=== PATIENT | male | born 1990 | race American Indian/Alaskan Native ===

== ENCOUNTER 2017-09-11 19:14 | Emergency (ER) | payer BC ==
[2017-09-11 20:25] LABS: Basophils # (Auto) 0.1 K/mm3 (0.0-0.1); Basophils % (Auto) 1.1 % (0.0-1.8); Eosinophils # (Auto) 0.3 K/mm3 (0.0-0.4); Eosinophils % (Auto) 4.7 % (0.0-4.3); Hematocrit 42.7 % (35.5-45.6); Lymphocytes # (Auto) 1.1 K/mm3 (1.2-5.4); Lymphocytes % (Auto) 19.2 % (13.4-35.0); Mean Corpuscular HGB Conc 33 % (32-34); Mean Corpuscular Hemoglobin 29 pg (28-32); Mean Corpuscular Volume 89 fl (84-94); Monocytes # (Auto) 0.5 K/mm3 (0.0-0.8); Monocytes % (Auto) 8.6 % (0.0-7.3); Platelet Count 259 K/mm3 (140-440); Red Blood Count 4.82 M/mm3 (3.65-5.03); Red Cell Distribution Width 13.2 % (13.2-15.2)
[2017-09-11 20:51] LABS: Alanine Aminotransferase 27 units/L (7-56); Albumin 4.2 g/dL (3.9-5); BUN/Creatinine Ratio 12; Blood Urea Nitrogen 11 mg/dL (9-20); Calcium 9.1 mg/dL (8.4-10.2); Hemolysis Index 3
--- NOTE | 2017-09-11 21:21 | XRay Report ---
FINAL REPORT EXAM: XR CHEST ROUTINE 2V HISTORY: Shortness of breath TECHNIQUE: Two view chest PA and lateral PRIORS: None. FINDINGS: Cardiac and mediastinal contours are unremarkable. No focal pulmonary infiltrate is identified. No pleural fluid collection seen. Pulmonary vasculature is unremarkable. IMPRESSION: Negative two-view chest
[2017-09-11 21:23] LABS: Bacteria,Urine 1+ /HPF (Negative); Bilirubin,Urine NEG (Negative); Blood,Urine NEG (Negative); Color,Urine Yellow (Yellow); Mucus,Urine FEW /HPF; Protein,Urine <15 mg/dL mg/dL (Negative); Urobilinogen,Urine < 2.0 mg/dL (<2.0)
[2017-09-11] MEDS ORDERED: ZOFRAN IV ONE (23:39)
[2017-09-11] MEDS ORDERED: TORADOL IV ONE (23:39)
[2017-09-11] MEDS ORDERED: NACL 0.9% 1000 ML 1,000 ML IV ONE (23:39)
--- NOTE | 2017-09-12 01:21 | Emergency Department Report ---
ED General Adult HPI - General Chief complaint: Abdominal Pain Stated complaint: CHEST PAIN,VOMITING,STOMACH PAIN Time Seen by Provider: 09/11/17 23:28 Source: patient Mode of arrival: Ambulatory Limitations: No Limitations - History of Present Illness Initial comments: Mr. Avina is a healthy 27-year-old male who presents with 4 days of generalized malaise, body aches joint pain. He feels fatigued. Feels dehydrated. He has sharp achy central chest pain. The chest pain is better when he sits up and leans forward. Worsens when he lays flat. Subjective fever. Positive chills. Gradual onset of symptoms. Ibuprofen provided only mild relief. No radiation of chest pain. Nonproductive cough. Patient does not smoke tobacco. He does not use recreational drugs. However he does drink alcohol everyday. His significant other's concern about the amount of alcohol that he ingests daily. Severity scale (0 -10): 7 - Related Data Home Medications Medication Instructions Recorded Confirmed Last Taken Ibuprofen [Motrin] 600 mg PO BID PRN 04/21/13 09/16/13 07/08/13 Previous Rx's Medication Instructions Recorded Last Taken Type ALBUTEROL Inhaler [ProAir HFA 1 puff IH Q4-6H PRN #1 inha 04/21/13 09/16/13 Rx Inhaler] ALBUTEROL NEB's [Proventil 0.083% 2.5 mg IH Q4H PRN #25 neb 09/16/13 Unknown Rx NEBS] Albuterol Sulfate [Ventolin HFA] 2 puff IH Q4H PRN #1 hfa.aer.ad 09/16/13 Unknown Rx predniSONE [Deltasone] 20 mg PO TID #15 tab 09/16/13 Unknown Rx Allergies Allergy/AdvReac Type Severity Reaction Status Date / Time coconut Allergy Anaphylaxis Verified 09/11/17 19:34 pollen Allergy Swelling Uncoded 09/11/17 19:34 ED Review of Systems ROS: Stated complaint: CHEST PAIN,VOMITING,STOMACH PAIN Other details as noted in HPI Comment: All other systems reviewed and negative Constitutional: fever, malaise Respiratory: cough Cardiovascular: chest pain ED Past Medical Hx - Past Medical History Previous Medical History?: Yes Hx Arthritis: Yes Hx Asthma: Yes - Surgical History Past Surgical History?: No - Social History Smoking Status: Never Smoker Substance Use Type: Alcohol - Medications Home Medications: Home Medications Medication Instructions Recorded Confirmed Last Taken Type ALBUTEROL Inhaler [ProAir HFA 1 puff IH Q4-6H PRN #1 inha 04/21/13 09/16/1305/20 Rx Inhaler] Ibuprofen [Motrin] 600 mg PO BID PRN 04/21/13 09/16/13 07/08/13 History ALBUTEROL NEB's [Proventil 0.083% 2.5 mg IH Q4H PRN #25 neb 09/16/13 Unknown Rx NEBS] Albuterol Sulfate [Ventolin HFA] 2 puff IH Q4H PRN #1 hfa.aer.ad 09/16/13 Unknown Rx predniSONE [Deltasone] 20 mg PO TID #15 tab 09/16/13 Unknown Rx ED Physical Exam - General Limitations: No Limitations General appearance: alert, in no apparent distress - Head Head exam: Present: atraumatic, normocephalic - Eye Eye exam: Present: normal appearance - ENT ENT exam: Present: mucous membranes moist - Neck Neck exam: Present: normal inspection - Respiratory Respiratory exam: Present: normal lung sounds bilaterally. Absent: respiratory distress, wheezes, rales, rhonchi - Cardiovascular Cardiovascular Exam: Present: regular rate, normal rhythm, normal heart sounds. Absent: systolic murmur, diastolic murmur, rubs, gallop - GI/Abdominal GI/Abdominal exam: Present: soft. Absent: distended, tenderness, guarding, rebound - Rectal Rectal exam: Present: deferred - Extremities Exam Extremities exam: Present: normal inspection - Back Exam Back exam: Present: normal inspection - Neurological Exam Neurological exam: Present: alert, oriented X3 - Psychiatric Psychiatric exam: Present: normal affect, normal mood - Skin Skin exam: Present: warm, dry, intact, normal color. Absent: rash ED Course Vital Signs 09/11/17 09/11/17 09/12/17 19:14 19:34 00:14 Temperature 97.5 F L 97.5 F L 97.8 F Pulse Rate 89 86 63 Respiratory 18 20 Rate Blood Pressure 132/97 132/97 Blood Pressure 112/73 [Left] O2 Sat by Pulse 94 96 97 Oximetry 09/12/17 09/12/17 00:17 00:19 Temperature Pulse Rate Respiratory 20 20 Rate Blood Pressure Blood Pressure [Left] O2 Sat by Pulse 97 Oximetry ED Medical Decision Making - Lab Data Result diagrams: 09/11/17 20:16 09/11/17 20:16 Laboratory Results - last 24 hr 09/11/17 09/11/17 09/11/17 20:16 20:16 20:55 WBC 5.9 RBC 4.82 Hgb 14.0 Hct 42.7 MCV 89 MCH 29 MCHC 33 RDW 13.2 Plt Count 259 Lymph % (Auto) 19.2 [place] % (Auto) 8.6 H Eos % (Auto) 4.7 H Baso % (Auto) 1.1 Lymph # 1.1 L [place] # 0.5 Eos # 0.3 Baso # 0.1 Seg Neutrophils % 66.4 Seg Neutrophils # 3.9 Sodium 142 Potassium 4.3 Chloride 99.3 Carbon Dioxide 25 Anion Gap 22 BUN 11 Creatinine 0.9 Estimated GFR > 60 BUN/Creatinine Ratio 12 Glucose 85 Calcium 9.1 Total Bilirubin 0.20 AST 41 H ALT 27 Alkaline Phosphatase 67 Troponin T Total Protein 7.7 Albumin 4.2 Albumin/Globulin Ratio 1.2 Urine Color Yellow Urine Turbidity Clear Urine pH 5.0 Ur Specific [place] 1.023 Urine Protein <15 mg/dl Urine Glucose (UA) Neg Urine Ketones 20 Urine Blood Neg Urine Nitrite Neg Urine Bilirubin Neg Urine Urobilinogen < 2.0 Ur Leukocyte Esterase Neg Urine WBC (Auto) 1.0 Urine RBC (Auto) 2.0 U Epithel Cells (Auto) < 1.0 Urine Bacteria (Auto) 1+ Urine Mucus Few 09/11/17 23:43 WBC RBC Hgb Hct MCV MCH MCHC RDW Plt Count Lymph % (Auto) [place] % (Auto) Eos % (Auto) Baso % (Auto) Lymph # [place] # Eos # Baso # Seg Neutrophils % Seg Neutrophils # Sodium Potassium Chloride Carbon Dioxide Anion Gap BUN Creatinine Estimated GFR BUN/Creatinine Ratio Glucose Calcium Total Bilirubin AST ALT Alkaline Phosphatase Troponin T < 0.010 Total Protein Albumin Albumin/Globulin Ratio Urine Color Urine Turbidity Urine pH Ur Specific [place] Urine Protein Urine Glucose (UA) Urine Ketones Urine Blood Urine Nitrite Urine Bilirubin Urine Urobilinogen Ur Leukocyte Esterase Urine WBC (Auto) Urine RBC (Auto) U Epithel Cells (Auto) Urine Bacteria (Auto) Urine Mucus Vital Signs - 24 hr 09/11/17 09/11/17 09/12/17 19:14 19:34 00:14 Temperature 97.5 F L 97.5 F L 97.8 F Pulse Rate 89 86 63 Respiratory 18 20 Rate Blood Pressure 132/97 132/97 Blood Pressure 112/73 [Left] O2 Sat by Pulse 94 96 97 Oximetry 09/12/17 09/12/17 00:17 00:19 Temperature Pulse Rate Respiratory 20 20 Rate Blood Pressure Blood Pressure [Left] O2 Sat by Pulse 97 Oximetry - EKG Data 09/12/17 01:19 First EKG obtained at 1943 Normal sinus rhythm rate of 70 normal axis normal intervals minimal ST elevation in the inferior lateral leads without signs of ischemia Second EKG obtained at 1953 No changes from the previous EKG Rate 70 normal sinus rhythm normal axis normal intervals minimally elevated ST elevation in the inferior lateral leads - Medical Decision Making Mr. Avina presents with viral syndrome and signs and symptoms of pericarditis. I prescribed ibuprofen. Discharged home in stable condition. I strongly encouraged follow-up with outside clinic. Also recommended alcohol cessation. Critical care attestation.: If time is entered above; I have spent that time in minutes in the direct care of this critically ill patient, excluding procedure time. ED Disposition Clinical Impression: Acute pericarditis, Viral syndrome Disposition: -01 TO HOME OR SELFCARE Is pt being admited?: No Does the pt Need Aspirin: No Condition: Stable Instructions: Acute Pericarditis (ED) Referrals: [facility] [Outside] - 7-10 days Time of Disposition: 01:23
[2017-09-12 01:46] VITALS: BP 118/70
== END 2017-09-12 01:46 | disposition home or self-care (01) ==
LOC: ED 19:14
DX: I30.9 Acute pericarditis, unspecified (principal); B34.9 Viral infection, unspecified; M19.90 Unspecified osteoarthritis, unspecified site; J45.909 Unspecified asthma, uncomplicated; Z91.018 Allergy to other foods
CPT/HCPCS: 36415; 71046; 80053; 81001; 84484; 85025; 93005; 93010; 96361; 96374; 96375; 99284; J1885; J2405; J7030

== ENCOUNTER 2018-01-23 18:56 | Emergency (ER) | payer BC ==
[2018-01-23] MEDS ORDERED: ASPIRIN PO ONE (19:22)
[2018-01-23 20:05] LABS: Basophils % (Auto) 0.4 % (0.0-1.8); Eosinophils # (Auto) 0.1 K/mm3 (0.0-0.4); Eosinophils % (Auto) 1.7 % (0.0-4.3); Hematocrit 43.3 % (35.5-45.6); Hemoglobin 14.4 gm/dl (11.8-15.2); Lymphocytes # (Auto) 1.3 K/mm3 (1.2-5.4); Mean Corpuscular HGB Conc 33 % (32-34); Mean Corpuscular Hemoglobin 30 pg (28-32); Mean Corpuscular Volume 89 fl (84-94); Monocytes # (Auto) 0.5 K/mm3 (0.0-0.8); Monocytes % (Auto) 7.5 % (0.0-7.3); Platelet Count 303 K/mm3 (140-440); Red Blood Count 4.88 M/mm3 (3.65-5.03); Red Cell Distribution Width 13.1 % (13.2-15.2)
[2018-01-23 20:10] LABS: BUN/Creatinine Ratio 8; Blood Urea Nitrogen 10 mg/dL (9-20); Calcium 10.1 mg/dL (8.4-10.2); Hemolysis Index 8
[2018-01-23 21:08] LABS: Albumin 4.8 g/dL (3.9-5); Bilirubin,Direct 0.2 mg/dL (0-0.2)
[2018-01-23] MEDS ORDERED: VITAMIN B-1 100 MG, FOLVITE 1 MG, INFUVITE 10 ML in NACL 0.9% 1000 ML 1,000 ML IV ONE (21:17)
[2018-01-23] MEDS ORDERED: ATIVAN IV ONE (21:17)
[2018-01-23] MEDS ORDERED: ZOFRAN IV ONE (21:17)
--- NOTE | 2018-01-23 21:54 | Emergency Department Report ---
ED Chest Pain HPI - General Chief Complaint: Chest Pain Stated Complaint: CHEST PAIN/SWEATING/SHAKING Time Seen by Provider: 01/23/18 20:52 Source: patient Mode of arrival: Ambulatory Limitations: No Limitations - History of Present Illness Initial Comments: 27-year-old male with a past medical history of asthma and alcohol abuse presents to the hospital complaining of chest pain, fluttering in his chest, shortness of breath (feeling like he cant get enough air), uncontrollable shaking, and sweats that started today. Patient drinks a significant amount of alcohol daily and admits to tremors when he does not drink. His last drink was yesterday. Family member states the patient became so drunk that he passed out yesterday. Patient complains of intermittent chest tightness and shortness of breath today. He has not recently used his albuterol inhaler. Earlier today he has tremors and shakes. Positive nausea without vomiting and 2 episodes of loose stool reported. thinks that patient's eyes are more yellow today. They report that he had similar symptoms when he was here in September when he was diagnosed with pericarditis by treating ER physician. - Related Data Home Medications Medication Instructions Recorded Confirmed Last Taken Ibuprofen [Motrin] 600 mg PO BID PRN 04/21/13 09/16/13 07/08/13 Previous Rx's Medication Instructions Recorded Last Taken Type ALBUTEROL NEB's [Proventil 0.083% 2.5 mg IH Q4H PRN #25 neb 09/16/13 Unknown Rx NEBS] Albuterol Sulfate [Ventolin HFA] 2 puff IH Q4H PRN #1 hfa.aer.ad 09/16/13 Unknown Rx predniSONE [Deltasone] 20 mg PO TID #15 tab 09/16/13 Unknown Rx Ibuprofen 800 mg PO QID 28 Days #7 tablet 09/12/17 Unknown Rx ALBUTEROL Inhaler [ProAir HFA 1 puff IH Q4-6H PRN #1 inha 01/24/18 Unknown Rx Inhaler] chlordiazePOXIDE [Librium] 25 mg PO DAILY #20 capsule 01/24/18 Unknown Rx Allergies Allergy/AdvReac Type Severity Reaction Status Date / Time coconut Allergy Anaphylaxis Verified 09/11/17 19:34 pollen Allergy Swelling Uncoded 09/11/17 19:34 Heart Score - HEART Score History: Slightly suspicious EKG: Normal Age: < 45 Risk factors: No known risk factors Troponin: < normal limit HEART Score: 0 ED Review of Systems ROS: Stated complaint: CHEST PAIN/SWEATING/SHAKING Other details as noted in HPI Comment: All other systems reviewed and negative ED Past Medical Hx - Past Medical History Hx Arthritis: Yes Hx Psychiatric Treatment: Yes (alcohol abuse) Hx Asthma: Yes - Social History Smoking Status: Current Every Day Smoker Substance Use Type: Alcohol - Medications Home Medications: Home Medications Medication Instructions Recorded Confirmed Last Taken Type Ibuprofen [Motrin] 600 mg PO BID PRN 04/21/13 09/16/13 07/08/13 History ALBUTEROL NEB's [Proventil 0.083% 2.5 mg IH Q4H PRN #25 neb 09/16/13 Unknown Rx NEBS] Albuterol Sulfate [Ventolin HFA] 2 puff IH Q4H PRN #1 hfa.aer.ad 09/16/13 Unknown Rx predniSONE [Deltasone] 20 mg PO TID #15 tab 09/16/13 Unknown Rx Ibuprofen 800 mg PO QID 28 Days #7 tablet 09/12/17 Unknown Rx ALBUTEROL Inhaler [ProAir HFA 1 puff IH Q4-6H PRN #1 inha 01/24/18 Unknown Rx Inhaler] chlordiazePOXIDE [Librium] 25 mg PO DAILY #20 capsule 01/24/18 Unknown Rx ED Physical Exam - General Limitations: No Limitations - Other Other exam information: General: No limitations, patient is alert in no acute distress Head exam: Atraumatic, normocephalic Eyes exam: Normal appearance, pupils equal reactive to light, extraocular movements intact ENT: Moist mucous membrane, normal oropharynx Neck exam: Normal inspection, full range of motion, no meningismus nontender Respiratory exam: Clear to auscultation bilateral, no wheezes, rales, crackles Cardiovascular: Normal rate and rhythm, normal heart sounds Abdomen: Soft, nondistended, and nontender, with normal bowel sounds, no rebound, or guarding Extremity: Full range of motion normal inspection no deformity, no calf tenderness, no edema Back: Normal Inspection, full range of motion, no tenderness Neurologic: Alert, oriented x3, cranial nerves intact, no motor or sensory deficit, no tremor currently Psychiatric: normal affect, normal mood Skin: Warm, dry, intact ED Course Vital Signs 08/19/18 08/19/18 08/19/18 19:08 19:17 21:15 Temperature 98.3 F 98.3 F Pulse Rate 73 66 59 L Respiratory 18 18 11 L Rate Blood Pressure 111/77 111/77 120/73 Blood Pressure [Left] O2 Sat by Pulse 100 100 95 Oximetry 01/23/18 23:00 Temperature Pulse Rate 62 Respiratory 17 Rate Blood Pressure Blood Pressure 116/69 [Left] O2 Sat by Pulse 97 Oximetry - Reevaluation(s) Reevaluation #1: 01/24/18 00:26 pt reports feeling better with ed treatment CONCEPCION score - Concepcion Score Age > 65: (0) No Aspirin use within the Past 7 Days: (0) No 3 or more CAD Risk Factors: (0) No 2 or more Angina events in past 24 hrs: (0) No Known CAD with more than 50% Stenosis: (0) No Elevated Cardiac Markers: (0) No ST Deviation Greater than 0.5mm: (0) No CONCEPCION Score: 0 ED Medical Decision Making - Lab Data Result diagrams: 01/23/18 19:40 01/23/18 19:40 Lab Results 01/23/18 01/23/18 01/23/18 Range/Units 19:40 19:40 19:40 WBC 6.4 (4.5-11.0) K/mm3 RBC 4.88 (3.65-5.03) M/mm3 Hgb 14.4 (11.8-15.2) gm/dl Hct 43.3 (35.5-45.6) % MCV 89 (84-94) fl MCH 30 (28-32) pg MCHC 33 (32-34) % RDW 13.1 L (13.2-15.2) % Plt Count 303 (140-440) K/mm3 Lymph % (Auto) 20.0 (13.4-35.0) % [place] % (Auto) 7.5 H (0.0-7.3) % Eos % (Auto) 1.7 (0.0-4.3) % Baso % (Auto) 0.4 (0.0-1.8) % Lymph # 1.3 (1.2-5.4) K/mm3 [place] # 0.5 (0.0-0.8) K/mm3 Eos # 0.1 (0.0-0.4) K/mm3 Baso # 0.0 (0.0-0.1) K/mm3 Seg Neutrophils % 70.4 H (40.0-70.0) % Seg Neutrophils # 4.5 (1.8-7.7) K/mm3 Sodium 140 (137-145) mmol/L Potassium 4.2 (3.6-5.0) mmol/L Chloride 98.8 (98-107) mmol/L Carbon Dioxide 25 (22-30) mmol/L Anion Gap 20 mmol/L BUN 10 (9-20) mg/dL Creatinine 1.2 (0.8-1.5) mg/dL Estimated GFR > 60 ml/min BUN/Creatinine Ratio 8 % Glucose 75 (75-100) mg/dL Calcium 10.1 (8.4-10.2) mg/dL Magnesium 1.70 (1.7-2.3) mg/dL Total Bilirubin 0.80 (0.1-1.2) mg/dL Direct Bilirubin 0.2 (0-0.2) mg/dL Indirect Bilirubin 0.6 mg/dL AST 50 H (5-40) units/L ALT 35 (7-56) units/L Alkaline Phosphatase 84 (35-129) units/L Troponin T 0.012 (0.00-0.029) ng/mL Total Protein 8.4 H (6.3-8.2) g/dL Albumin 4.8 (3.9-5) g/dL Albumin/Globulin Ratio 1.3 % Urine Opiates Screen Urine Methadone Screen Ur Barbiturates Screen Ur Phencyclidine Scrn Ur Amphetamines Screen U Benzodiazepines Scrn Urine Cocaine Screen U Marijuana (THC) Screen 01/23/18 01/23/18 Range/Units 22:49 23:05 WBC (4.5-11.0) K/mm3 RBC (3.65-5.03) M/mm3 Hgb (11.8-15.2) gm/dl Hct (35.5-45.6) % MCV (84-94) fl MCH (28-32) pg MCHC (32-34) % RDW (13.2-15.2) % Plt Count (140-440) K/mm3 Lymph % (Auto) (13.4-35.0) % [place] % (Auto) (0.0-7.3) % Eos % (Auto) (0.0-4.3) % Baso % (Auto) (0.0-1.8) % Lymph # (1.2-5.4) K/mm3 [place] # (0.0-0.8) K/mm3 Eos # (0.0-0.4) K/mm3 Baso # (0.0-0.1) K/mm3 Seg Neutrophils % (40.0-70.0) % Seg Neutrophils # (1.8-7.7) K/mm3 Sodium (137-145) mmol/L Potassium (3.6-5.0) mmol/L Chloride (98-107) mmol/L Carbon Dioxide (22-30) mmol/L Anion Gap mmol/L BUN (9-20) mg/dL Creatinine (0.8-1.5) mg/dL Estimated GFR ml/min BUN/Creatinine Ratio % Glucose (75-100) mg/dL Calcium (8.4-10.2) mg/dL Magnesium (1.7-2.3) mg/dL Total Bilirubin (0.1-1.2) mg/dL Direct Bilirubin (0-0.2) mg/dL Indirect Bilirubin mg/dL AST (5-40) units/L ALT (7-56) units/L Alkaline Phosphatase (35-129) units/L Troponin T < 0.010 (0.00-0.029) ng/mL Total Protein (6.3-8.2) g/dL Albumin (3.9-5) g/dL Albumin/Globulin Ratio % Urine Opiates Screen Presumptive negative Urine Methadone Screen Presumptive negative Ur Barbiturates Screen Presumptive negative Ur Phencyclidine Scrn Presumptive negative Ur Amphetamines Screen Presumptive negative U Benzodiazepines Scrn Presumptive negative Urine Cocaine Screen Presumptive negative U Marijuana (THC) Screen Presumptive negative - EKG Data -: EKG Interpreted by De EKG shows normal: sinus rhythm, axis (qrs 91), QRS complexes (qrsd 97), ST-T waves (early repol) Rate: normal - EKG Data When compared to previous EKG there are: no significant change (compared to ) - Radiology Data Radiology results: report reviewed FINAL REPORT PROCEDURE: XR CHEST ROUTINE 2V TECHNIQUE: PA and lateral chest radiographs were obtained. CPT 16382 HISTORY: cp, sob COMPARISON: 09/11/2017 FINDINGS: Heart: Normal. Mediastinum/Vessels: Normal. Lungs/Pleural space: Normal. Bony thorax: No acute osseous abnormality. Other: IMPRESSION: Normal examination. - Medical Decision Making Constellation of symptoms likely related to etoh withdrawal sx improved with ativan 1mg iv and 1 Liter bannana bag ekg unchanged cardiac enzymes neg x2 cxr normal d/c with meds and f/u - Differential Diagnosis alcohol withdrawal, asthma, pericarditis, pericardial effusion, chf Critical Care Time: No Critical care attestation.: If time is entered above; I have spent that time in minutes in the direct care of this critically ill patient, excluding procedure time. ED Disposition Clinical Impression: Alcohol dependence, Alcohol withdrawal Disposition: - TO HOME OR SELFCARE Is pt being admited?: No Does the pt Need Aspirin: No Condition: Stable Instructions: Abuse of Alcohol (ED), Alcohol Withdrawal (ED) Additional Instructions: You are physically dependent on alcohol and therefore you cannot quit cold turkey or you may develop alcohol withdrawal symptoms. Take the Librium jonnie as prescribed to help with alcohol withdrawal symptoms if you decide to stop drinking. You have been provided follow-up information for [facility]/ [facility] to help you further with alcohol withdrawal treatment Prescriptions: ALBUTEROL Inhaler [ProAir HFA Inhaler] 1 puff IH Q4-6H PRN #1 inha PRN Reason: Wheezing chlordiazePOXIDE [Librium] 25 mg PO DAILY #20 capsule Referrals: [facility] [Provider Group] - 3-[address] [facility] [Outside] - 3-5 Days (For help with alcohol abuse) Time of Disposition: 00:43
--- NOTE | 2018-01-23 23:23 | XRay Report ---
FINAL REPORT PROCEDURE: XR CHEST ROUTINE 2V TECHNIQUE: PA and lateral chest radiographs were obtained. CPT 09747 HISTORY: cp, sob COMPARISON: 09/11/2017 FINDINGS: Heart: Normal. Mediastinum/Vessels: Normal. Lungs/Pleural space: Normal. Bony thorax: No acute osseous abnormality. Other: IMPRESSION: Normal examination.
[2018-01-24 00:25] LABS: Amphetamine Screen,Urine PRESUMPTIVE NEGATIVE; Benzodiazepines Screen,Urine PRESUMPTIVE NEGATIVE; Cannabinoid Screen,Urine PRESUMPTIVE NEGATIVE; Cocaine Screen,Urine PRESUMPTIVE NEGATIVE; Methadone Screen,Urine PRESUMPTIVE NEGATIVE; Opiate Screen,Urine PRESUMPTIVE NEGATIVE
[2018-01-24 01:11] VITALS: BP 105/66
== END 2018-01-24 01:19 | disposition home or self-care (01) ==
LOC: ED 18:56
DX: F10.230 Alcohol dependence with withdrawal, uncomplicated (principal); Z91.018 Allergy to other foods; M19.90 Unspecified osteoarthritis, unspecified site; J45.909 Unspecified asthma, uncomplicated; F17.200 Nicotine dependence, unspecified, uncomplicated
CPT/HCPCS: 36415; 71046; 80048; 80074; 80307; 83735; 84484; 85025; 93005; 93010; 96365; 96375; 99284; J2060; J2405; J3411; J7030

== ENCOUNTER 2018-09-22 20:54 | Emergency (ER) | payer OTHER ==
--- NOTE | 2018-09-22 21:05 | Emergency Department Report ---
Blank Doc - Documentation Documentation: This is a 28-year-old male that presents with right arm lac s/p cut with glass. This initial assessment/diagnostic orders/clinical plan/treatment(s) is/are subject to change based on patient's health status, clinical progression and re- assessment by fellow clinical providers in the ED. Further treatment and workup at subsequent clinical providers discretion. Patient/guardians urged not to elope from the ED as their condition may be serious if not clinically assessed and managed. Initial orders include: 1- Patient sent to [facility] for further evaluation and treatment 2- xray to r/o foreign body
[2018-09-22] MEDS ORDERED: IBUPROFEN PO ONE ×2 (21:06→21:10)
[2018-09-22 21:07] VITALS: BP 121/78
--- NOTE | 2018-09-22 22:03 | XRay Report ---
PROCEDURE: XR FOREARM RT TECHNIQUE: AP and lateral view of the right forearm are obtained. HISTORY: laceration, foreign body COMPARISONS: None FINDINGS: There appears to be a laceration anterior aspect of the right forearm middle third. Subtle density is seen at the suspected laceration site measuring just under 2 mm. This could be related to the lacera tion. I cannot exclude a small foreign body. Radius and ulna appear intact. Cortical and trabecular p attern appear normal. IMPRESSION: Laceration suspected anterior aspect of the forearm and possible 2 mm foreign body. Please see above comments. No other abnormalities are seen.. This document is electronically signed by Waqar Burnett MD., September 22 2018 10:01:48 PM ET
[2018-09-23] MEDS ORDERED: NORCO 5/325 ONE
[2018-09-23] MEDS ORDERED: NORCO 5/325 PO ONE (00:03)
[2018-09-23] MEDS ORDERED: IBUPROFEN PO ONE ×2 (00:03)
[2018-09-23] MEDS ORDERED: BOOSTRIX IM ONE (03:17)
[2018-09-23] MEDS ORDERED: KEFLEX PO ONE (03:17)
--- NOTE | 2018-09-23 03:17 | Emergency Department Report ---
- General Chief Complaint: Wound/Laceration Stated Complaint: RIGHT ARM LACERATION Time Seen by Provider: 09/22/18 21:03 Source: patient Mode of arrival: Ambulatory Limitations: No Limitations - History of Present Illness Initial Comments: Pt is a 28 y/o aam who presens for right forearm laceration pt states he fell and his arm went through car window , bleeding was controlled on scene via direct pressure, there is no nerve muscle or tendon damage there is no numbness or tingling no deformity rom is intact Onset/Timin -: hour(s) Extremity Location: Right: Forearm Place: outdoors Patient Tetanus UTD: No Context: accidental, fall Associated Symptoms: pain - Related Data Home Medications Medication Instructions Recorded Confirmed Last Taken Ibuprofen [Motrin] 600 mg PO BID PRN 04/21/13 09/16/13 07/08/13 Previous Rx's Medication Instructions Recorded Last Taken Type ALBUTEROL NEB's [Proventil 0.083% 2.5 mg IH Q4H PRN #25 neb 09/16/13 Unknown Rx NEBS] Albuterol Sulfate [Ventolin HFA] 2 puff IH Q4H PRN #1 hfa.aer.ad 09/16/13 Unknown Rx predniSONE [Deltasone] 20 mg PO TID #15 tab 09/16/13 Unknown Rx Ibuprofen 800 mg PO QID 28 Days #7 tablet 09/12/17 Unknown Rx ALBUTEROL Inhaler (OR & NICU) 1 puff IH Q4-6H PRN #1 inha 01/24/18 Unknown Rx [ProAir HFA Inhaler] chlordiazePOXIDE [Librium] 25 mg PO DAILY #20 capsule 01/24/18 Unknown Rx Cephalexin [Keflex] 500 mg PO TID #30 capsule 09/23/18 Unknown Rx Neomycn/Bacitrc/Polymyx/Pramox 1 applicatio TP BID 14 Days #1 tube 09/23/18 Unknown Rx [Neosporin + Pain Relief Oint] traMADol [Ultram] 50 mg PO Q6HR PRN #12 tablet 09/23/18 Unknown Rx Allergies Allergy/AdvReac Type Severity Reaction Status Date / Time coconut Allergy Anaphylaxis Verified 09/11/17 19:34 pollen Allergy Swelling Uncoded 09/11/17 19:34 ED Review of Systems ROS: Stated complaint: RIGHT ARM LACERATION Other details as noted in HPI Constitutional: denies: chills, fever Eyes: denies: eye pain, eye discharge, vision change ENT: denies: ear pain, throat pain Respiratory: denies: cough, shortness of breath, wheezing Cardiovascular: denies: chest pain, palpitations Endocrine: no symptoms reported Gastrointestinal: denies: abdominal pain, nausea, diarrhea Genitourinary: denies: urgency, dysuria Musculoskeletal: myalgia. denies: back pain, joint swelling, arthralgia Skin: denies: rash, lesions Neurological: denies: headache, weakness, paresthesias Psychiatric: denies: anxiety, depression Hematological/Lymphatic: denies: easy bleeding, easy bruising ED Past Medical Hx - Past Medical History Hx Arthritis: Yes Hx Psychiatric Treatment: Yes (alcohol abuse) Hx Asthma: Yes - Surgical History Past Surgical History?: No - Social History Smoking Status: Current Every Day Smoker Substance Use Type: Alcohol - Medications Home Medications: Home Medications Medication Instructions Recorded Confirmed Last Taken Type Ibuprofen [Motrin] 600 mg PO BID PRN 04/21/13 09/16/13 07/08/13 History ALBUTEROL NEB's [Proventil 0.083% 2.5 mg IH Q4H PRN #25 neb 09/16/13 Unknown Rx NEBS] Albuterol Sulfate [Ventolin HFA] 2 puff IH Q4H PRN #1 hfa.aer.ad 09/16/13 Unknown Rx predniSONE [Deltasone] 20 mg PO TID #15 tab 09/16/13 Unknown Rx Ibuprofen 800 mg PO QID 28 Days #7 tablet 09/12/17 Unknown Rx ALBUTEROL Inhaler (OR & NICU) 1 puff IH Q4-6H PRN #1 inha 01/24/18 Unknown Rx [ProAir HFA Inhaler] chlordiazePOXIDE [Librium] 25 mg PO DAILY #20 capsule 01/24/18 Unknown Rx Cephalexin [Keflex] 500 mg PO TID #30 capsule 09/23/18 Unknown Rx Neomycn/Bacitrc/Polymyx/Pramox 1 applicatio TP BID 14 Days #1 tube 09/23/18 Unknown Rx [Neosporin + Pain Relief Oint] traMADol [Ultram] 50 mg PO Q6HR PRN #12 tablet 09/23/18 Unknown Rx ED Physical Exam - General Limitations: No Limitations General appearance: alert, in no apparent distress - Head Head exam: Present: atraumatic, normocephalic - Eye Eye exam: Present: normal appearance, PERRL, EOMI Pupils: Present: normal accommodation - ENT ENT exam: Present: mucous membranes moist - Neck Neck exam: Present: normal inspection, full ROM - Respiratory Respiratory exam: Present: normal lung sounds bilaterally. Absent: respiratory distress, wheezes - Cardiovascular Cardiovascular Exam: Present: regular rate, normal rhythm, normal heart sounds. Absent: systolic murmur, diastolic murmur, rubs, gallop - GI/Abdominal GI/Abdominal exam: Present: soft, normal bowel sounds. Absent: tenderness, bruit, hernia - Rectal Rectal exam: Present: deferred - Extremities Exam Extremities exam: Present: normal inspection, full ROM, tenderness (right anterior forearm ), normal capillary refill. Absent: pedal edema, joint swelling - Expanded Upper Extremity Exam Right Upper Arm exam: Present: full ROM, dislocation. Absent: tenderness Elbow exam: Present: full ROM, tenderness Forearm Wrist exam: Present: normal inspection, full ROM, tenderness, la ceration. Absent: swelling, abrasion, ecchymosis, deformity, crepidus, dislocation, erythema, tenderness over anatomical snuff box, pain with axial thumb loading Hand Wrist exam: Present: full ROM. Absent: tenderness, swelling Neuro motor exam: Present: wrist extension intact, thumb opposition intact, thumb IP flexion intact, thumb adduction intact, fingers 2-5 abduction intact Neurosensory exam: Present: 2-point discrimination, radial nerve intact, ulnar nerve intact, median nerve intact Vascular: Present: normal capillary refill, radial pulse, brachial pulse, ulnar pulse. Absent: pulse deficit radial art, pulse deficit ulnar art, pulse deficit brachial art - Back Exam Back exam: Present: normal inspection, full ROM. Absent: tenderness, rash noted - Neurological Exam Neurological exam: Present: alert, oriented X3, CN II-XII intact, normal gait, motor sensory deficit, reflexes normal - Psychiatric Psychiatric exam: Present: normal affect, normal mood - Skin Skin exam: Present: warm, dry, intact, normal color. Absent: rash ED Course Vital Signs 09/22/18 21:04 Temperature 98 F Pulse Rate 74 Respiratory 16 Rate Blood Pressure 121/78 O2 Sat by Pulse 97 Oximetry - Laceration /Wound Repair Right Anterior Arm Wound Location: upper extremity Wound Length (cm): 2 Wound's Depth, Shape: into muscle Wound Explored: small glass sliver removed intact no other foreign body remains Irrigated w/ Saline (ccs): 60 Betadine Prep?: Yes Anesthesia: 1% Lidocaine Volume Anesthetic (ccs): 3 Wound Debrided: minimal Wound Repaired With: sutures Suture Size/Type: 4:0, nylon Number of Sutures: 9 Layer Closure?: No Progress: right forearm laceration x 3 less than 1 cm each , forearm xray notes small foreign body, same noted with irrigation, wound cleaned with betadine solution , anesthesia with 1% lidocaine 3 cc , wound irrigated with 60 cc sterile saline , wound explored foreign body glass sliver removed intact. 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 ED Medical Decision Making - Radiology Data Radiology results: report reviewed, image reviewed Findings [facility] [address] [place] [address] XRay Report Signed Patient: CHRIS HICKMAN MR#: [id number] : 1990 Acct:[id number] Age/Sex: 28 / M ADM Date: 09/22/18 Loc: ED Attending Dr: Ordering Physician: LINA LAYTON NP Date of Service: 09/22/18 Procedure(s): XR forearm RT Accession Number(s): [id number] cc: LINA LAYTON NP Fluoro Time In Minutes: PROCEDURE: XR FOREARM RT TECHNIQUE: AP and lateral view of the right forearm are obtained. HISTORY: laceration, foreign body COMPARISONS: None FINDINGS: There appears to be a laceration anterior aspect of the right forearm middle third. Subtle density is seen at the suspected laceration site measuring just under 2 mm. This could be related to the laceration. I cannot exclude a small foreign body. Radius and ulna appear intact. Cortical and trabecular pattern appear normal. IMPRESSION: Laceration suspected anterior aspect of the forearm and possible 2 mm foreign body. Please see above comments. No other abnormalities are seen.. This document is electronically signed by Iris Burnett MD., September 22 2018 10:01:48 PM ET Transcribed By: DFN Dictated By: IRIS BURNETT MD Electronically Authenticated By: IRIS BURNETT MD Signed Date/Time: 09/22/182202 DD/ 46 TD/TT: 09/22/182146 Critical care attestation.: If time is entered above; I have spent that time in minutes in the direct care of this critically ill patient, excluding procedure time. ED Disposition Clinical Impression: Laceration of forearm, right Qualifiers: Encounter type: initial encounter Qualified Code(s): S51.811A - Laceration without foreign body of right forearm, initial encounter Disposition: TO HOME OR SELFCARE Is pt being admited?: No Does the pt Need Aspirin: No Condition: Stable Instructions: Laceration (ED), Suture Care (ED) Prescriptions: Cephalexin [Keflex] 500 mg PO TID #30 capsule Neomycn/Bacitrc/Polymyx/Pramox [Neosporin + Pain Relief Oint] 1 applicatio TP BID 14 Days #1 tube traMADol [Ultram] 50 mg PO Q6HR PRN #12 tablet PRN Reason: Pain Referrals: [facility] [Outside] - 3-5 Days Forms: Work/School Release Form(ED) Time of Disposition: 03:47
== END 2018-09-23 03:54 | disposition home or self-care (01) ==
LOC: ED 20:54
DX: S51.811A Laceration without foreign body of right forearm, initial encounter (principal); M19.90 Unspecified osteoarthritis, unspecified site; J45.909 Unspecified asthma, uncomplicated; F17.200 Nicotine dependence, unspecified, uncomplicated; W25.XXXA Contact with sharp glass, initial encounter; Y93.89 Activity, other specified; Y92.89 Other specified places as the place of occurrence of the external cause; Y99.8 Other external cause status
CPT/HCPCS: 90471; 90715

== ENCOUNTER 2019-04-14 07:36 | Emergency (ER) | payer OTHER ==
[2019-04-14 08:20] VITALS: BP 115/66
--- NOTE | 2019-04-14 09:03 | Emergency Department Report ---
ED Upper Extremity Inj HPI - General Chief Complaint: Extremity Injury, Upper Stated Complaint: RT HAND SWELLING Time Seen by Provider: 04/14/19 08:50 Source: patient Mode of arrival: Ambulatory Limitations: No Limitations - History of Present Illness Initial Comments: Patient is a 28-year-old male that presents emergency room with complaints of right hand pain. Patient states he was walking in the kitchen last night and slipped and hit his hand on the wall. Patient states the hand is swollen. Patient states the pain is a 8 out of 10. Patient states is better with rest and worse with movement. MD Complaint: Injury to:: right, hand -: Sudden Other Extremity Injury: Hand: Right Other Injuries: none Handedness: right Place: home Severity scale (0 -10): 10 Improves With: rest Worsens With: movement of extremity Context: fall, direct blow Associated Symptoms: denies: weakness, numbness, neck pain, suspects foreign body, nausea/vomiting, heard/felt popping sensat - Related Data Home Medications Medication Instructions Recorded Confirmed Last Taken Ibuprofen [Motrin] 600 mg PO BID PRN 04/21/13 09/16/13 07/08/13 Previous Rx's Medication Instructions Recorded Last Taken Type ALBUTEROL NEB's [Proventil 0.083% 2.5 mg IH Q4H PRN #25 neb 09/16/13 Unknown Rx NEBS] Albuterol Sulfate [Ventolin HFA] 2 puff IH Q4H PRN #1 hfa.aer.ad 09/16/13 Unknown Rx predniSONE [Deltasone] 20 mg PO TID #15 tab 09/16/13 Unknown Rx Ibuprofen [Ibuprofen 800] 800 mg PO QID 28 Days #7 tablet 09/12/17 Unknown Rx ALBUTEROL Inhaler (OR & NICU) 1 puff IH Q4-6H PRN #1 inha 01/24/18 Unknown Rx [ProAir HFA Inhaler] chlordiazePOXIDE [Librium] 25 mg PO DAILY #20 capsule 01/24/18 Unknown Rx Cephalexin [Keflex] 500 mg PO TID #30 capsule 09/23/18 Unknown Rx Neomycn/Bacitrc/Polymyx/Pramox 1 applicatio TP BID 14 Days #1 tube 09/23/18 Unknown Rx [Neosporin + Pain Relief Oint] Ibuprofen [Motrin 800 MG tab] 800 mg PO Q8HR PRN #20 tablet 04/14/19 Unknown Rx traMADol [Ultram 50 MG tab] 50 mg PO Q6HR PRN #12 tablet 04/14/19 Unknown Rx Allergies Allergy/AdvReac Type Severity Reaction Status Date / Time coconut Allergy Anaphylaxis Verified 04/14/19 08:15 pollen Allergy Swelling Uncoded 09/11/17 19:34 ED Review of Systems ROS: Stated complaint: RT HAND SWELLING Other details as noted in HPI Constitutional: denies: chills, fever Eyes: denies: eye pain, eye discharge, vision change ENT: denies: ear pain, throat pain Respiratory: denies: cough, shortness of breath, wheezing Cardiovascular: denies: chest pain, palpitations Endocrine: no symptoms reported Gastrointestinal: denies: abdominal pain, nausea, diarrhea Genitourinary: denies: urgency, dysuria Musculoskeletal: denies: back pain, joint swelling, arthralgia Skin: denies: rash, lesions Neurological: denies: headache, weakness, paresthesias Psychiatric: denies: anxiety, depression Hematological/Lymphatic: denies: easy bleeding, easy bruising ED Past Medical Hx - Past Medical History Previous Medical History?: Yes Hx Arthritis: Yes Hx Psychiatric Treatment: Yes (alcohol abuse) Hx Asthma: Yes - Surgical History Past Surgical History?: No - Family History Family history: no significant - Social History Smoking Status: Never Smoker Substance Use Type: Alcohol - Medications Home Medications: Home Medications Medication Instructions Recorded Confirmed Last Taken Type Ibuprofen [Motrin] 600 mg PO BID PRN 04/21/13 09/16/13 07/08/13 History ALBUTEROL NEB's [Proventil 0.083% 2.5 mg IH Q4H PRN #25 neb 09/16/13 Unknown Rx NEBS] Albuterol Sulfate [Ventolin HFA] 2 puff IH Q4H PRN #1 hfa.aer.ad 09/16/13 Unknown Rx predniSONE [Deltasone] 20 mg PO TID #15 tab 09/16/13 Unknown Rx Ibuprofen [Ibuprofen 800] 800 mg PO QID 28 Days #7 tablet 09/12/17 Unknown Rx ALBUTEROL Inhaler (OR & NICU) 1 puff IH Q4-6H PRN #1 inha 01/24/18 Unknown Rx [ProAir HFA Inhaler] chlordiazePOXIDE [Librium] 25 mg PO DAILY #20 capsule 01/24/18 Unknown Rx Cephalexin [Keflex] 500 mg PO TID #30 capsule 09/23/18 Unknown Rx Neomycn/Bacitrc/Polymyx/Pramox 1 applicatio TP BID 14 Days #1 tube 09/23/18 Unknown Rx [Neosporin + Pain Relief Oint] Ibuprofen [Motrin 800 MG tab] 800 mg PO Q8HR PRN #20 tablet 04/14/19 Unknown Rx traMADol [Ultram 50 MG tab] 50 mg PO Q6HR PRN #12 tablet 04/14/19 Unknown Rx ED Physical Exam - General Limitations: No Limitations General appearance: alert, in no apparent distress - Head Head exam: Present: atraumatic, normocephalic - Eye Eye exam: Present: normal appearance - ENT ENT exam: Present: mucous membranes moist - Neck Neck exam: Present: normal inspection - Respiratory Respiratory exam: Present: normal lung sounds bilaterally. Absent: respiratory distress - Cardiovascular Cardiovascular Exam: Present: regular rate, normal rhythm. Absent: systolic murmur, diastolic murmur, rubs, gallop - GI/Abdominal GI/Abdominal exam: Present: soft, normal bowel sounds - Rectal Rectal exam: Present: deferred - Extremities Exam Extremities exam: Present: normal inspection (except for right hand swelling), full ROM (except for right hand), tenderness (right hand) - Back Exam Back exam: Present: normal inspection - Neurological Exam Neurological exam: Present: alert, oriented X3 - Psychiatric Psychiatric exam: Present: normal affect, normal mood - Skin Skin exam: Present: warm, dry, intact, normal color. Absent: rash ED Course Vital Signs 04/14/19 08:16 Temperature 98.2 F Pulse Rate 62 Respiratory 18 Rate Blood Pressure 115/66 O2 Sat by Pulse 97 Oximetry - Reevaluation(s) Reevaluation #1: I discussed all results with patient. I discussed plan of care with patient. Patient agrees with plan of care. Patient is stable for discharge. Patient will be discharged home. Patient given discharge instructions. Patient voiced understanding of discharge instructions. 04/14/19 09:27 - Orthopedic Splinting/Casting Injury #1 Side: right Upper Extremity Injury Location: forearm, hand Upper Extremity Immobilizer: posterior splint Additional Comments: Neurovascular intact post-splinting. Good cap refill post-splint. Splint placed by nursing staff ED Medical Decision Making - Radiology Data Radiology results: report reviewed RIGHT HAND, 3 VIEWS INDICATION: PAIN AND SWELLING. COMPARISON: None. IMPRESSION: There is moderate soft tissue swelling on the dorsum of the hand. Subtle minimally displaced chip fracture is identified from the second metacarpal head on the AP view only. The remaining bony structures and joint spaces are unremarkable. - Medical Decision Making Patient is a 28-year-old male that presents emergency room with an injury to his right hand. Patient's x-ray done and shows a metacarpal fracture. Patient placed in a splint. Patient stable for discharge. Patient discharged home. Patient will need to remain in the splint until cleared by orthopedist. Patient given discharge instructions. - Differential Diagnosis sprain, strain, fracture, contusion Critical care attestation.: If time is entered above; I have spent that time in minutes in the direct care of this critically ill patient, excluding procedure time. ED Disposition Clinical Impression: Right hand pain Hand fracture, right Qualifiers: Encounter type: initial encounter Fracture type: closed Qualified Code(s): S62.91XA - Unspecified fracture of right wrist and hand, initial encounter for closed fracture Disposition: DC-01 TO HOME OR SELFCARE Is pt being admited?: No Does the pt Need Aspirin: No Condition: Stable Instructions: Hand Fracture (ED) Additional Instructions: Patient to follow-up with primary care in 2-3 days. Patient to follow-up with orthopedist in 2-3 days. Patient to remain in the splint until cleared or change by orthopedist. Patient to return to ER if condition worsens. Patient to rest. Patient to increase water. Patient to take meds as directed. Patient's take Tylenol or ibuprofen when necessary for pain. Prescriptions: Ibuprofen [Motrin 800 MG tab] 800 mg PO Q8HR PRN #20 tablet PRN Reason: pain traMADol [Ultram 50 MG tab] 50 mg PO Q6HR PRN #12 tablet PRN Reason: Pain Referrals: PARIS YOUNG MD [Staff Physician] - 2-3 Days Forms: Work/School Release Form(ED) Time of Disposition: 09:29
--- NOTE | 2019-04-14 09:23 | XRay Report ---
RIGHT HAND, 3 VIEWS INDICATION: PAIN AND SWELLING. COMPARISON: None. IMPRESSION: There is moderate soft tissue swelling on the dorsum of the hand. Subtle minimally disp laced chip fracture is identified from the second metacarpal head on the AP view only. The remaining bony structures and joint spaces are unremarkable. Signer Name: Trent Juarez Jr, MD Signed: 04/14/2019 9:19 AM Workstation Name: [id number]
== END 2019-04-14 09:54 | disposition home or self-care (01) ==
LOC: ED 07:36
DX: S62.300A Unspecified fracture of second metacarpal bone, right hand, initial encounter for closed fracture (principal); M19.90 Unspecified osteoarthritis, unspecified site; J45.909 Unspecified asthma, uncomplicated; Z91.018 Allergy to other foods; Z91.048 Other nonmedicinal substance allergy status; W01.198A Fall on same level from slipping, tripping and stumbling with subsequent striking against other object, initial encounter; Y93.89 Activity, other specified; Y92.009 Unspecified place in unspecified non-institutional (private) residence as the place of occurrence of the external cause; Y99.8 Other external cause status

== ENCOUNTER 2019-06-24 13:31 | Emergency (ER) | payer SELFPAY ==
--- NOTE | 2019-06-24 13:50 | Event Note ---
ED Screening Note Date of service: 06/24/19 Time: 13:49 ED Screening Note: Pt complains of GREEN, N/V, back pain, chest pain and syncope x today This initial assessment/diagnostic orders/clinical plan/treatment(s) is/are subject to change based on patients health status, clinical progression and re- assessment by fellow clinical providers in the ED. Further treatment and workup at subsequent clinical providers discretion. Patient/guardian urged not to elope from the ED as their condition may be serious if not clinically assessed and managed. Initial orders include: labs CT
[2019-06-24 14:58] LABS: Alanine Aminotransferase 16 units/L (7-56); Albumin 4.7 g/dL (3.9-5); BUN/Creatinine Ratio 13; Blood Urea Nitrogen 10 mg/dL (9-20); Calcium 9.3 mg/dL (8.4-10.2); Hemolysis Index 12
[2019-06-24 14:59] LABS: Basophils % (Auto) 0.5 % (0.0-1.8); Eosinophils % (Auto) 0.3 % (0.0-4.3); Hematocrit 45.5 % (35.5-45.6); Lymphocytes # (Auto) 1.4 K/mm3 (1.2-5.4); Mean Corpuscular HGB Conc 33 % (32-34); Mean Corpuscular Volume 90 fl (84-94); Monocytes # (Auto) 0.2 K/mm3 (0.0-0.8); Monocytes % (Auto) 2.5 % (0.0-7.3); Platelet Count 389 K/mm3 (140-440); Red Blood Count 5.04 M/mm3 (3.65-5.03); Red Cell Distribution Width 13.7 % (13.2-15.2)
--- NOTE | 2019-06-24 15:07 | Cat Scan Report ---
CT HEAD WITHOUT CONTRAST INDICATION / CLINICAL INFORMATION: MAIN: syncope, headache, dizziness LOC last night . TECHNIQUE: All CT scans at this location are performed using CT dose reduction for ALARA by means of automated e xposure control. COMPARISON: None available. FINDINGS: HEMORRHAGE: No evidence of intracranial hemorrhage or extra-axial fluid collection. EXTRA-AXIAL SPACES: Cortical sulci, sylvian fissures and basilar cisterns have an unremarkable appear ance. VENTRICULAR SYSTEM: The ventricular system is of normal size and configuration. CEREBRAL PARENCHYMA: No areas of abnormal brain parenchymal attenuation are identified. There is no i ndication of recent infarction. MIDLINE SHIFT OR HERNIATION: There is no mass effect. CEREBELLUM / BRAINSTEM: Brainstem and cerebellum have an unremarkable appearance. INTRACRANIAL VESSELS:No abnormalities are identified on this noncontrast head CT. ORBITS: visualized portions of the orbits have an unremarkable appearance. SOFT TISSUES of HEAD: No significant abnormality. CALVARIUM: Evaluation of bone windows reveals no abnormalities. PARANASAL SINUSES / MASTOID AIR CELLS: Inflammatory mucosal changes are seen within multiple ethmoid air cells bilaterally. ADDITIONAL FINDINGS: None. IMPRESSION: 1. No acute intracranial abnormality. 2. Inflammatory mucosal disease within multiple ethmoid air cells. Signer Name: Johnny Reece MD Signed: 06/24/2019 3:03 PM Workstation Name: [id number]
--- NOTE | 2019-06-24 15:21 | XRay Report ---
CHEST 2 VIEWS INDICATION / CLINICAL INFORMATION: chest pain, syncope. COMPARISON: 01/23/2018 FINDINGS: SUPPORT DEVICES: None. HEART / MEDIASTINUM: No significant abnormality. LUNGS / PLEURA: No significant pulmonary or pleural abnormality. No pneumothorax. ADDITIONAL FINDINGS: No significant additional findings. IMPRESSION: 1. No acute findings. Signer Name: Brian Olmos MD Signed: 06/24/2019 3:16 PM Workstation Name: [id number]
[2019-06-24 18:57] LABS: Bilirubin,Urine NEG (Negative); Blood,Urine NEG (Negative); Color,Urine Yellow (Yellow); Mucus,Urine 1+ /HPF; Protein,Urine <15 mg/dL mg/dL (Negative); Urobilinogen,Urine < 2.0 mg/dL (<2.0); WBC,Urine < 1.0 /HPF (0.0-6.0)
[2019-06-24] MEDS ORDERED: SODIUM CHLORIDE 0.9% 1000 ML 1,000 ML IV ONE (19:25)
[2019-06-24] MEDS ORDERED: FAMOTIDINE 20 MG/2 ML INJ IV ONE (19:26)
[2019-06-24] MEDS ORDERED: ONDANSETRON 4 MG/2 ML INJ IV ONE (19:26)
--- NOTE | 2019-06-24 19:27 | Emergency Department Report ---
ED Syncope HPI - General Chief Complaint: Syncope Stated Complaint: FLU LIKE SYMPTOMS Time Seen by Provider: 06/24/19 13:48 Source: patient - History of Present Illness Initial Comments: 28-year-old male presents to the ER today complaining of "I think I passed out". Patient states that while he was at work last night, he started feeling nauseous, started having chest pain, felt short of breath off and on, started with a headache, and started with nausea and vomiting and felt generally weak. States that he decided to go home around 12:30 AM/1 AM. Patient states that he remembers driving to a gas station and stopping to rest, but he states what was concerning to him is that he woke up at the gas station around 8:30 AM by someone tapping at the window. Patient stated after waking up at a gas station, he drove home, and after which he came to the ER. Patient states that he vomited about 10 times since his symptoms started. He reports associated epigastric pain. He denies any fever, chills, head injury, focal weakness, numbness, tingling, vision changes or speech changes. Patient states that since being in the room in the ER only currently has a headache, continues to have epigastric pain but he has not vomited since he arrived in the ER, and is no longer having any chest pain all [place] his heart is racing. He denies any drug use, but he does admit to taking 2 shots of fireball twice a day every day. He did have 2 fireball shots prior to going to work yesterday Patient states that he was told once that he "may have had a slight heart attack". He states that he came here 2 years ago because his heart was racing, he states that his EKGs was concerning at the time but he was not immediately instead he was informed to follow up with a office associate which he did (he does not recall name of office associate). Patient states that he had a treadmill stress test, as well as an echocardiogram, and wore a Holter monitor for about one week. He states as far as he knows his test results were normal. He denies any history of diabetes, hypertension, hyperlipidemia, PE/DVT or any other significant past medical history. Timing/Prior Episodes: other (Possible Syncope, Nausea, Vomiting) Precipitating Factors: Positive: diaphoresis, nausea, rapid heart beat, other (Generalized weakness, Chest Pain) - Related Data Allergies/Adverse Reactions: Allergies coconut Allergy (Verified 04/14/19 08:15) Anaphylaxis pollen Allergy (Uncoded 09/11/17 19:34) Swelling Home Medications: Ambulatory Orders Ibuprofen [Motrin] 600 mg PO BID PRN 04/21/13 ALBUTEROL NEB's [Proventil 0.083% NEBS] 2.5 mg IH Q4H PRN #25 neb 09/16/13 Albuterol Sulfate [Ventolin HFA] 2 puff IH Q4H PRN #1 hfa.aer.ad 09/16/13 predniSONE [Deltasone] 20 mg PO TID #15 tab 09/16/13 Ibuprofen [Ibuprofen 800] 800 mg PO QID 28 Days #7 tablet 09/12/17 Albuterol INH(or & Nicu Only) [ProAir HFA Inhaler] 1 puff IH Q4-6H PRN #1 inha 01/24/18 chlordiazePOXIDE [Librium] 25 mg PO DAILY #20 capsule 01/24/18 Cephalexin [Keflex] 500 mg PO TID #30 capsule 09/23/18 Neomycn/Bacitrc/Polymyx/Pramox [Neosporin + Pain Relief Oint] 1 applicatio TP BID 14 Days #1 tube 09/23/18 Ibuprofen [Motrin 800 MG tab] 800 mg PO Q8HR PRN #20 tablet 04/14/19 traMADoL [Ultram 50 MG tab] 50 mg PO Q6HR PRN #12 tablet 04/14/19 Famotidine [Pepcid] 40 mg PO QHS #30 tablet 06/24/19 Ondansetron [Zofran Odt] 4 mg PO Q8HR PRN #12 tab.rapdis 06/24/19 ED Review of Systems ROS: Stated complaint: FLU LIKE SYMPTOMS Other details as noted in HPI Constitutional: weakness. denies: chills, fever Eyes: denies: vision change ENT: denies: ear pain, throat pain, dental pain, congestion Respiratory: shortness of breath. denies: cough, orthopnea Cardiovascular: chest pain, palpitations, syncope. denies: dyspnea on exertion, orthopnea, edema, paroxysmal nocturnal dyspnea Gastrointestinal: abdominal pain, nausea, vomiting. denies: diarrhea Musculoskeletal: denies: back pain, joint swelling, arthralgia, myalgia Neurological: headache, weakness. denies: numbness, paresthesias, abnormal gait, vertigo Hematological/Lymphatic: denies: easy bleeding ED Past Medical Hx - Past Medical History Hx Arthritis: Yes Hx Psychiatric Treatment: Yes (alcohol abuse) Hx Asthma: Yes - Surgical History Past Surgical History?: No - Social History Smoking Status: Never Smoker Substance Use Type: Alcohol - Medications Home Medications: Home Medications Medication Instructions Recorded Confirmed Last Taken Type Ibuprofen [Motrin] 600 mg PO BID PRN 04/21/13 09/16/13 07/08/13 History ALBUTEROL NEB's [Proventil 0.083% 2.5 mg IH Q4H PRN #25 neb 09/16/13 Unknown Rx NEBS] Albuterol Sulfate [Ventolin HFA] 2 puff IH Q4H PRN #1 hfa.aer.ad 09/16/13 Unknown Rx predniSONE [Deltasone] 20 mg PO TID #15 tab 09/16/13 Unknown Rx Ibuprofen [Ibuprofen 800] 800 mg PO QID 28 Days #7 tablet 09/12/17 Unknown Rx Albuterol INH(or & Nicu Only) 1 puff IH Q4-6H PRN #1 inha 01/24/18 Unknown Rx [ProAir HFA Inhaler] chlordiazePOXIDE [Librium] 25 mg PO DAILY #20 capsule 01/24/18 Unknown Rx Cephalexin [Keflex] 500 mg PO TID #30 capsule 09/23/18 Unknown Rx Neomycn/Bacitrc/Polymyx/Pramox 1 applicatio TP BID 14 Days #1 tube 09/23/18 Unknown Rx [Neosporin + Pain Relief Oint] Ibuprofen [Motrin 800 MG tab] 800 mg PO Q8HR PRN #20 tablet 04/14/19 Unknown Rx traMADoL [Ultram 50 MG tab] 50 mg PO Q6HR PRN #12 tablet 04/14/19 Unknown Rx Famotidine [Pepcid] 40 mg PO QHS #30 tablet 06/24/19 Unknown Rx Ondansetron [Zofran Odt] 4 mg PO Q8HR PRN #12 tab.rapdis 06/24/19 Unknown Rx ED Physical Exam - General Limitations: No Limitations General appearance: alert, in no apparent distress - Head Head exam: Present: atraumatic, normocephalic, normal inspection - Eye Eye exam: Present: normal appearance, PERRL, EOMI Pupils: Present: normal accommodation - ENT ENT exam: Present: normal exam, normal orophraynx, mucous membranes moist - Neck Neck exam: Present: normal inspection, full ROM. Absent: meningismus - Respiratory Respiratory exam: Present: normal lung sounds bilaterally. Absent: respiratory distress - Cardiovascular Cardiovascular Exam: Present: regular rate, normal rhythm, normal heart sounds - GI/Abdominal GI/Abdominal exam: Present: soft, tenderness (epigastric, mild ). Absent: guarding, rebound, rigid - Neurological Exam Neurological exam: Present: alert, oriented X3, CN II-XII intact, normal gait. Absent: motor sensory deficit - Psychiatric Psychiatric exam: Present: normal affect, normal mood - Skin Skin exam: Present: intact ED Course Vital Signs 06/24/19 06/24/19 13:48 21:22 Temperature 97.5 F L Pulse Rate 64 71 Respiratory 16 16 Rate Blood Pressure 124/88 Blood Pressure 120/84 [Right] O2 Sat by Pulse 97 100 Oximetry ED Medical Decision Making - Lab Data Result diagrams: 06/24/19 14:07 06/24/19 14:07 - EKG Data EKG shows normal: sinus rhythm Rate: normal - EKG Data When compared to previous EKG there are: no significant change Interpretation: no acute changes, unchanged when compared t - Radiology Data Radiology results: report reviewed Patient: CHRIS HICKMAN MR#: [id number] : 1990 Acct:[id number] Age/Sex: 28 / M ADM Date: 06/24/19 Loc: ED Attending Dr: Ordering Physician: DENICE YOUNG Date of Service: 06/24/19 Procedure(s): CT head/brain wo con Accession Number(s): [id number] cc: DENICE YOUNG CT HEAD WITHOUT CONTRAST INDICATION / CLINICAL INFORMATION: MAIN: syncope, headache, dizziness LOC last night . TECHNIQUE: All CT scans at this location are performed using CT dose reduction for ALARA by means of automated exposure control. COMPARISON: None available. FINDINGS: HEMORRHAGE: No evidence of intracranial hemorrhage or extra-axial fluid collection. EXTRA-AXIAL SPACES: Cortical sulci, sylvian fissures and basilar cisterns have an unremarkable appearance. VENTRICULAR SYSTEM: The ventricular system is of normal size and configuration. CEREBRAL PARENCHYMA: No areas of abnormal brain parenchymal attenuation are identified. There is no indication of recent infarction. MIDLINE SHIFT OR HERNIATION: There is no mass effect. CEREBELLUM / BRAINSTEM: Brainstem and cerebellum have an unremarkable appearance. INTRACRANIAL VESSELS:No abnormalities are identified on this noncontrast head CT. ORBITS: visualized portions of the orbits have an unremarkable appearance. SOFT TISSUES of HEAD: No significant abnormality. CALVARIUM: Evaluation of bone windows reveals no abnormalities. PARANASAL SINUSES / MASTOID AIR CELLS: Inflammatory mucosal changes are seen within multiple ethmoid air cells bilaterally. ADDITIONAL FINDINGS: None. IMPRESSION: 1. No acute intracranial abnormality. 2. Inflammatory mucosal disease within multiple ethmoid air cells. Signer Name: Johnny Reece MD Signed: 06/24/2019 3:03 PM Workstation Name: [id number] Transcribed By: Dictated By: Johnny Reece MD Electronically Authenticated By: Johnny Reece MD Signed Date/Time: 06/24/19 150 DD/ 1501 TD/TT: Patient: CHRIS HICKMAN MR#: [id number] : 1990 Acct:[id number] Age/Sex: 28 / M ADM Date: 06/24/19 Loc: ED Attending Dr: Ordering Physician: DENICE YOUNG Date of Service: 06/24/19 Procedure(s): XR chest routine 2V Accession Number(s): [id number] cc: DENICE YOUNG Fluoro Time In Minutes: CHEST 2 VIEWS INDICATION / CLINICAL INFORMATION: chest pain, syncope. COMPARISON: 01/23/2018 FINDINGS: SUPPORT DEVICES: None. HEART / MEDIASTINUM: No significant abnormality. LUNGS / PLEURA: No significant pulmonary or pleural abnormality. No pneumothorax. ADDITIONAL FINDINGS: No significant additional findings. IMPRESSION: 1. No acute findings. Signer Name: Brian Olmos MD Signed: 06/24/2019 3:16 PM Workstation Name: [id number] Transcribed By: JM Dictated By: Brian Olmos MD Electronically Authenticated By: Brian Olmos MD Signed Date/Time: 06/24/19 1516 DD/ 1516 TD/TT: - Medical Decision Making Patient presents to the ER today with concern for possible syncopal episode which started after he started to feel bad at work. She states that last at w ork he started to feel nauseous, started vomiting, chest pain intermittent shortness of breath, headache and felt like his heart was racing and felt weak and so decided to go home. On the way home he stopped at a gas station to rest, but his concern was that he woke up at 8:30 by someone knocking out the window and so he was concerned he may have passed out. I suspect patient may have just fallen asleep. His EKG is reviewed, does not show any significant change compared to his previous EKGs. Patient has had 2 negative troponins here in the ER. His head CT is negative for anything acute. His labs are unremarkable. He is not orthostatic. Physically he is neurologically intact, he appears well, he is not toxic or ill appearing, does not appear dehydrated and currently he is not in any acute distress. Patient has a normal gait. He reports feeling better after fluids and meds. He is history, exam, diagnostic testing and current condition does not demonstrate any ACS (MACE score 0), PE (PERC score 0), significant intracranial abnormalities, sepsis, or any other serious bacterial infection requiring any further testing, consultation or admission at this time. Discussed lab results, suspected diagnosis and treatment plan with patient. His condition is stable and he is appropriate for d/c. Recommend close f/u with PCP but if worse he is to return to ED. Critical care attestation.: If time is entered above; I have spent that time in minutes in the direct care of this critically ill patient, excluding procedure time. ED Disposition Clinical Impression: Nausea & vomiting, Gastritis Disposition: DC-01 TO HOME OR SELFCARE Is pt being admited?: No Does the pt Need Aspirin: No Condition: Stable Instructions: Gastritis (ED), Acute Nausea and Vomiting (ED) Prescriptions: Famotidine [Pepcid] 40 mg PO QHS #30 tablet Ondansetron [Zofran Odt] 4 mg PO Q8HR PRN #12 tab.rapdis PRN Reason: Vomiting Referrals: PRIMARY CARE,MD [Primary Care Provider] - 3-5 Days Time of Disposition: 22:22
[2019-06-24 21:22] VITALS: BP 120/84
== END 2019-06-24 22:27 | disposition home or self-care (01) ==
LOC: ED 13:31
DX: K29.70 Gastritis, unspecified, without bleeding (principal); R55 Syncope and collapse; M19.90 Unspecified osteoarthritis, unspecified site; J45.909 Unspecified asthma, uncomplicated
CPT/HCPCS: 36415; 70450; 71046; 80053; 81001; 83690; 84484; 85025; 93005; 93010; 96361; 96374; 96375; 99284; J2405; J7030

== ENCOUNTER 2020-10-20 14:51 | Inpatient (IN) | payer OTHER, SELFPAY ==
--- NOTE | 2020-10-20 15:31 | Event Note ---
ED Screening Note ED Screening Note: Patient tested positive for Covid on 10/08/2020 He states that he was out for Mother's Day and began feeling sick He states over the last few days his shortness of breath has been worsening and he has chest tightness Past medical history of asthma No medication allergies Initial O2 sat was 84 on room air, patient placed on oxygen and sat has improved to 93% Due to tachycardia and hypoxia code sepsis initiated and Covid order set Charge nurse Mihaela advised that patient needs room ANDRA This initial assessment/diagnostic orders/clinical plan/treatment(s) is/are subject to change based on patients health status, clinical progression and re- assessment by fellow clinical providers in the ED. Further treatment and workup at subsequent clinical providers discretion. Patient/guardian urged not to elope from the ED as their condition may be serious if not clinically assessed and managed.
[2020-10-20] MEDS ORDERED: cefTRIAXone/NS 1 GM/50 ML 1 GM/50 ML BAG IV ONE (16:02)
[2020-10-20] MEDS ORDERED: DEXAMETHASONE 4 MG TAB PO ONE (16:02)
[2020-10-20 16:11] LABS: Basophils % (Auto) 0.5 % (0.0-1.8); Eosinophils % (Auto) 0.1 % (0.0-4.3); Hematocrit 37.1 % (35.5-45.6); Hemoglobin 12.7 gm/dl (11.8-15.2); Lymphocytes # (Auto) 0.8 K/mm3 (1.2-5.4); Lymphocytes % (Auto) 17.2 % (13.4-35.0); Mean Corpuscular HGB Conc 34 % (32-34); Mean Corpuscular Volume 88 fl (84-94); Monocytes # (Auto) 0.6 K/mm3 (0.0-0.8); Monocytes % (Auto) 12.4 % (0.0-7.3); Platelet Count 225 K/mm3 (140-440); Red Blood Count 4.21 M/mm3 (3.65-5.03); Red Cell Distribution Width 12.8 % (13.2-15.2)
[2020-10-20] MEDS ORDERED: AZITHROMYCIN 250 MG TAB PO ONE (16:12)
--- NOTE | 2020-10-20 16:12 | XRay Report ---
Chest single view INDICATION: Cough with dyspnea IMPRESSION: Severe bibasilar airspace pneumonia. The heart size is normal. Signer Name: Sumeet Montgomery MD Signed: 10/20/2020 4:07 PM Workstation Name: [email or web address]
--- NOTE | 2020-10-20 16:20 | Emergency Department Report ---
ED Shortness of Breath HPI - General Chief Complaint: Dyspnea/Respdistress Stated Complaint: SOB/COVID POSITIVE Time Seen by Provider: 10/20/20 15:29 Source: patient Mode of arrival: Ambulatory Limitations: No Limitations - History of Present Illness Initial Comments: 30-year-old male, history of asthma, ?tachycardia, presents to ED with shortness of breath. Patient states he tested positive for COVID-19 on October 09. Patient reports he began having symptoms October 05. Patient states his symptoms have included fever, cough, loss of smell and taste, diarrhea loss of appetite, body aches, and shortness of breath. Patient states that shortness of breath has increased over the last couple of days. Patient states he has been using nebulizer machine at home without improvement. Patient states it seems as though the neb treatments worsened his condition because after they open him he begins to cough uncontrollably. MD Complaint: shortness of breath -: week(s) (2) Severity: moderate Consistency: constant Improves With: nothing Worsens With: exertion Known History Of: asthma Context: recent URI Associated Symptoms: fever, cough Treatments Prior to Arrival: bronchodilator - Related Data Home Oxygen Therapy: No Home Medications Medication Instructions Recorded Confirmed Last Taken Ibuprofen [Motrin] 600 mg PO BID PRN 04/21/13 09/16/13 07/08/13 Previous Rx's Medication Instructions Recorded Last Taken Type ALBUTEROL NEB's [Proventil 0.083% 2.5 mg IH Q4H PRN #25 neb 09/16/13 Unknown Rx NEBS] Albuterol Sulfate [Ventolin HFA] 2 puff IH Q4H PRN #1 hfa.aer.ad 09/16/13 Unknown Rx predniSONE [Deltasone] 20 mg PO TID #15 tab 09/16/13 Unknown Rx Ibuprofen [Ibuprofen 800] 800 mg PO QID 28 Days #7 tablet 09/12/17 Unknown Rx Albuterol Mdi (or & Nicu Only) 1 puff IH Q4-6H PRN #1 inha 01/24/18 Unknown Rx [ProAir HFA Inhaler] chlordiazePOXIDE [Librium] 25 mg PO DAILY #20 capsule 01/24/18 Unknown Rx Neomycn/Bacitrc/Polymyx/Pramox 1 applicatio TP BID 14 Days #1 tube 09/23/18 Unknown Rx [Neosporin + Pain Relief Oint] cephALEXin [Keflex] 500 mg PO TID #30 capsule 09/23/18 Unknown Rx Ibuprofen [Motrin 800 MG tab] 800 mg PO Q8HR PRN #20 tablet 04/14/19 Unknown Rx traMADoL [Ultram 50 MG tab] 50 mg PO Q6HR PRN #12 tablet 04/14/19 Unknown Rx Famotidine [Pepcid] 40 mg PO QHS #30 tablet 06/24/19 Unknown Rx Ondansetron [Zofran Odt] 4 mg PO Q8HR PRN #12 tab.rapdis 06/24/19 Unknown Rx Allergies Allergy/AdvReac Type Severity Reaction Status Date / Time coconut Allergy Anaphylaxis Verified 04/14/19 08:15 pollen Allergy Swelling Uncoded 09/11/17 19:34 ED Review of Systems ROS: Stated complaint: SOB/COVID POSITIVE Other details as noted in HPI Comment: All other systems reviewed and negative Constitutional: fever ENT: other (Reports loss of smell and taste) Respiratory: cough, shortness of breath Gastrointestinal: diarrhea. denies: nausea, vomiting Musculoskeletal: myalgia ED Past Medical Hx - Past Medical History Previous Medical History?: Yes Hx Arthritis: Yes Hx Psychiatric Treatment: Yes (alcohol abuse) Hx Asthma: Yes Additional medical history: chronic bronchitis - Surgical History Past Surgical History?: No - Social History Smoking Status: Former Smoker Substance Use Type: Alcohol - Medications Home Medications: Home Medications Medication Instructions Recorded Confirmed Last Taken Type Ibuprofen [Motrin] 600 mg PO BID PRN 04/21/13 09/16/13 07/08/13 History ALBUTEROL NEB's [Proventil 0.083% 2.5 mg IH Q4H PRN #25 neb 09/16/13 Unknown Rx NEBS] Albuterol Sulfate [Ventolin HFA] 2 puff IH Q4H PRN #1 hfa.aer.ad 09/16/13 Unknown Rx predniSONE [Deltasone] 20 mg PO TID #15 tab 09/16/13 Unknown Rx Ibuprofen [Ibuprofen 800] 800 mg PO QID 28 Days #7 tablet 09/12/17 Unknown Rx Albuterol Mdi (or & Nicu Only) 1 puff IH Q4-6H PRN #1 inha 01/24/18 Unknown Rx [ProAir HFA Inhaler] chlordiazePOXIDE [Librium] 25 mg PO DAILY #20 capsule 01/24/18 Unknown Rx Neomycn/Bacitrc/Polymyx/Pramox 1 applicatio TP BID 14 Days #1 tube 09/23/18 Unknown Rx [Neosporin + Pain Relief Oint] cephALEXin [Keflex] 500 mg PO TID #30 capsule 09/23/18 Unknown Rx Ibuprofen [Motrin 800 MG tab] 800 mg PO Q8HR PRN #20 tablet 04/14/19 Unknown Rx traMADoL [Ultram 50 MG tab] 50 mg PO Q6HR PRN #12 tablet 04/14/19 Unknown Rx Famotidine [Pepcid] 40 mg PO QHS #30 tablet 06/24/19 Unknown Rx Ondansetron [Zofran Odt] 4 mg PO Q8HR PRN #12 tab.rapdis 06/24/19 Unknown Rx ED Physical Exam - General Limitations: No Limitations General appearance: alert - Head Head exam: Present: atraumatic, normocephalic - Eye Eye exam: Present: normal appearance - ENT ENT exam: Present: mucous membranes moist - Neck Neck exam: Present: normal inspection - Respiratory Respiratory exam: Present: normal lung sounds bilaterally, respiratory distress, other (Tachypneic) - Cardiovascular Cardiovascular Exam: Present: normal rhythm, tachycardia - GI/Abdominal GI/Abdominal exam: Present: soft. Absent: distended, tenderness - Extremities Exam Extremities exam: Present: normal inspection. Absent: pedal edema, calf tenderness - Neurological Exam Neurological exam: Present: alert, oriented X3 - Psychiatric Psychiatric exam: Present: normal affect, normal mood - Skin Skin exam: Present: warm, dry, intact, normal color ED Course Vital Signs 10/20/20 15:17 Temperature 95.9 F L Pulse Rate 118 H Respiratory 26 H Rate Blood Pressure 102/40 O2 Sat by Pulse 84 Oximetry ED Medical Decision Making - Lab Data Result diagrams: 10/20/20 15:43 10/20/20 15:43 - EKG Data -: EKG Interpreted by Md EKG shows normal: sinus rhythm, axis, intervals, QRS complexes, ST-T waves Rate: normal - EKG Data Interpretation: no acute changes - Radiology Data Radiology results: report reviewed, image reviewed - Medical Decision Making 30-year-old male presents to ED with difficulty breathing. Patient tested positive for COVID-19. O2 sats on room air are 84%, patient reports history of asthma. Chest x-ray shows bilateral pneumonia. Blood cultures drawn, Decadron, Rocephin, azithromycin given. Patient currently requiring 4 L O2 via nasal cannula. Patient will be admitted by hospitalist, Dr. Starr, for further management. - Differential Diagnosis COVID-19, pneumonia Critical Care Time: Yes Critical care time in (mins) excluding proc time.: 35 Critical care attestation.: If time is entered above; I have spent that time in minutes in the direct care of this critically ill patient, excluding procedure time. Critical Care Time: 35 min ED Disposition Clinical Impression: Pneumonia due to COVID-19 virus, Acute respiratory failure with hypoxia Disposition: DC-09 OP ADMIT IP TO THIS HOSP Is pt being admited?: Yes Condition: Stable Instructions: Bacterial Pneumonia (ED) Referrals: PRIMARY CARE, [Primary Care Provider] - 3-5 Days
[2020-10-20 16:31] LABS: Alanine Aminotransferase 24 units/L (7-56); Albumin 3.6 g/dL (3.9-5); BUN/Creatinine Ratio 13; Blood Urea Nitrogen 13 mg/dL (9-20); Calcium 8.2 mg/dL (8.4-10.2); Hemolysis Index 9
[2020-10-20 16:32] LABS: C-Reactive Protein 4.7 mg/dL (0.00-1.30)
[2020-10-20] MEDS ORDERED: KETOROLAC 30 MG/1 ML INJ IV ONE (16:52)
[2020-10-20] MEDS ORDERED: ONDANSETRON 4 MG/2 ML INJ IV PRN (17:07)
[2020-10-20] MEDS ORDERED: ACETAMINOPHEN 325 MG TAB PO PRN (17:07)
[2020-10-20] MEDS ORDERED: ALBUTEROL 2.5 MG/3 ML NEBU IH PRN (17:07)
[2020-10-20] MEDS ORDERED: ONDANSETRON 4 MG ODT TAB PO PRN (17:10)
--- NOTE | 2020-10-20 17:12 | History and Physical Report ---
History of Present Illness Chief complaint: I cannot breathe History of present illness: 30 YO Male with Asthma, Coronavirus Infection Diagnosed on October 09, 2020 presents to ED for evaluation. Patient reports "I do not feel well". Patient states that he has experienced fever, dry cough, loss of sense of smell, loss of sense of taste, multiple loose stools, body aches, shortness of breath over the past 4 days with persistently worsening symptoms over the same timeframe. Patient acknowledges use of nebulizer therapy without improvement in symptoms. Patient transported to [facility] via private vehicle for further care and evaluation of the aforementioned symptoms. The patient was seen and evaluated in the emergency department. All lab and imaging studies reviewed. Patient is lying in bed and using accessory muscles to breathe. Patient found to have a pulse oximetry of 84% on room air which is consistent with acute hypoxemic respiratory failure. Patient underwent chest x-ray which revealed bilateral pneumonia. Patient admitted to medical floor and initiated on pneumonia protocol as well as coronavirus protocol. Patient denies chills, chest pain, palpitation, skin rash, recent ill contacts, trauma, unilateral leg swelling, calf pain, individual/family history of DVT/bleeding/blood clotting disorders. No prior admission for review. All medication listed at time of admission has been reconciled. Past History Past Medical History: other (See HPI) Past Surgical History: No surgical history, Other (Reviewed) Social history: single, alcohol abuse. denies: smoking, prescription drug abuse Family history: hypertension Medications and Allergies Allergies Allergy/AdvReac Type Severity Reaction Status Date / Time coconut Allergy Anaphylaxis Verified 04/14/19 08:15 pollen Allergy Swelling Uncoded 09/11/17 19:34 Home Medications Medication Instructions Recorded Confirmed Last Taken Type Ibuprofen [Motrin] 600 mg PO BID PRN 04/21/13 09/16/13 07/08/13 History ALBUTEROL NEB's [Proventil 0.083% 2.5 mg IH Q4H PRN #25 neb 09/16/13 Unknown Rx NEBS] Albuterol Sulfate [Ventolin HFA] 2 puff IH Q4H PRN #1 hfa.aer.[id number] 09/16/13 Unknown Rx predniSONE [Deltasone] 20 mg PO TID #15 tab 09/16/13 Unknown Rx Ibuprofen [Ibuprofen 800] 800 mg PO QID 28 Days #7 tablet 09/12/17 Unknown Rx Albuterol Mdi (or & Nicu Only) 1 puff IH Q4-6H PRN #1 inha 01/24/18 Unknown Rx [ProAir HFA Inhaler] chlordiazePOXIDE [Librium] 25 mg PO DAILY #20 capsule 01/24/18 Unknown Rx Neomycn/Bacitrc/Polymyx/Pramox 1 applicatio TP BID 14 Days #1 tube 09/23/18 Unknown Rx [Neosporin + Pain Relief Oint] cephALEXin [Keflex] 500 mg PO TID #30 capsule 09/23/18 Unknown Rx Ibuprofen [Motrin 800 MG tab] 800 mg PO Q8HR PRN #20 tablet 04/14/19 Unknown Rx traMADoL [Ultram 50 MG tab] 50 mg PO Q6HR PRN #12 tablet 04/14/19 Unknown Rx Famotidine [Pepcid] 40 mg PO QHS #30 tablet 06/24/19 Unknown Rx Ondansetron [Zofran Odt] 4 mg PO Q8HR PRN #12 tab.rapdis 06/24/19 Unknown Rx Active Meds: Active Medications Acetaminophen (Acetaminophen 325 Mg Tab) 650 mg PO Q4H PRN PRN Reason: Pain MILD(1-3)/Fever >100.5/GREEN Albuterol (Albuterol 2.5 Mg/3 Ml Nebu) 2.5 mg IH Q4HRT PRN PRN Reason: Shortness Of Breath Ascorbic Acid (Ascorbic Acid 500 Mg Tab) 500 mg PO BID [facility] Chlordiazepoxide HCl (Chlordiazepoxide 25 Mg Cap) 25 mg PO DAILY [facility] Cholecalciferol (Cholecalciferol (Vit D3) 1000 Unit (25 Mcg) Tab) 1,000 unit PO QDAY [facility] Heparin Sodium (Porcine) (Heparin 5,000 Unit/1 Ml Vial) 5,000 unit SUB-Q Q12HR [facility] Ceftriaxone Sodium (Rocephin/Ns 2 Gm/100 Ml) 2 gm in 100 mls @ 200 mls/hr IV Q24H [place]; Protocol Azithromycin (Zithromax/Ns) 500 mg in 250 mls @ 250 mls/hr IV Q24H [place]; Protocol Methylprednisolone Sodium Succinate (Methylprednisolone Sod Succinate 40 Mg/1 Ml Inj) 40 mg IV Q8HR [facility] Miscellaneous Medication (Famotidine [Pepcid]) 40 mg PO QHS [facility] Miscellaneous Medication (Neomycn/Bacitrc/Polymyx/Pramox [Neosporin Plus Pain Rlf Oint]) 1 applicatio TP BID [facility] Ondansetron HCl (Ondansetron 4 Mg/2 Ml Inj) 4 mg IV Q8H PRN PRN Reason: Nausea And Vomiting Ondansetron HCl (Ondansetron 4 Mg Odt Tab) 4 mg PO Q8HR PRN PRN Reason: Vomiting Sodium Chloride (Sodium Chloride 0.9% 10 Ml Flush Syringe) 10 ml IV BID [place] Sodium Chloride (Sodium Chloride 0.9% 10 Ml Flush Syringe) 10 ml IV PRN PRN PRN Reason: LINE FLUSH Zinc Sulfate (Zinc Sulfate 220 Mg Cap) 220 mg PO BID [facility] Review of Systems Constitutional: fever, fatigue, weakness, malaise, no chills, no sweats Ears, nose, mouth and throat: other (Loss of sense of smell, loss of sense of taste), no ear pain, no ear discharge, no tinnitis, no decreased hearing, no nasal discharge Cardiovascular: no chest pain, no orthopnea, no palpitations, no rapid/irregular heart beat Respiratory: shortness of breath, no cough, no excessive sputum, no hemoptysis Gastrointestinal: no nausea, no vomiting, no diarrhea, no constipation Genitourinary Male: no hematuria, no flank pain, no discharge, no urinary frequency, no urinary hesitancy Rectal: no pain, no incontinence, no bleeding Musculoskeletal: no neck stiffness, no neck pain, no shooting arm pain, no arm numbness/tingling, no low back pain, no shooting leg pain Integumentary: no rash, no pruritis, no redness, no sores, no wounds Neurological: no head injury, no transient paralysis, no paralysis, no weakness, no parathesias, no numbness, no tingling, no seizures Psychiatric: no anxiety, no memory loss, no change in sleep habits, no sleep disturbances, no insomnia, no hypersomnia, no suicidal ideation Endocrine: no cold intolerance, no excessive thirst, no polydipsia, no polyuria, no nocturia, no excessive sweating, no flushing Hematologic/Lymphatic: no easy bruising, no easy bleeding, no lymphedema Allergic/Immunologic: no urticaria, no allergic rhinitis, no persistent infections, no angioedema Exam - Constitutional Vitals: Temp Pulse Resp BP Pulse Ox 95.9 F L 118 H 26 H 102/40 84 10/20/20 15:17 10/20/20 15:17 10/20/20 15:17 10/20/20 15:17 10/20/20 15:17 General appearance: Present: mild distress - EENT Eyes: Present: PERRL ENT: hearing intact, clear oral mucosa - Neck Neck: Present: supple, normal ROM - Respiratory Respiratory effort: normal Respiratory: bilateral: CTA - Cardiovascular Heart Sounds: Present: S1 & S2. Absent: rub, click - Extremities Extremities: pulses symmetrical, No edema Peripheral Pulses: within normal limits - Abdominal General gastrointestinal: Present: soft, non-tender, non-distended, normal bowel sounds Male genitourinary: Present: normal - Integumentary Integumentary: Present: clear, warm, dry - Musculoskeletal Musculoskeletal: gait normal, strength equal bilaterally - Psychiatric Psychiatric: appropriate mood/affect, intact judgment & insight - Neurologic Neurologic: CNII-XII intact, moves all extremities Results - Labs CBC & Chem 7: 10/20/20 15:43 10/20/20 15:43 Labs: Abnormal lab results 10/20/20 10/20/20 10/20/20 Range/Units 15:43 15:43 15:43 RDW 12.8 L (13.2-15.2) % Collin % (Auto) 12.4 H (0.0-7.3) % Lymph # (Auto) 0.8 L (1.2-5.4) K/mm3 D-Dimer 1144.84 H (0-234) ng/mlDDU Sodium 129 L (137-145) mmol/L Chloride 93.3 L (98-107) mmol/L Glucose 109 H (75-100) mg/dL Calcium 8.2 L (8.4-10.2) mg/dL Ferritin (30.0-300.0) ng/mL AST 82 H (5-40) units/L Lactate Dehydrogenase 712 H (91-180) units/L C-Reactive Protein 4.80 H (0.00-1.30) mg/dL Albumin 3.6 L (3.9-5) g/dL 05/16/21 05/16/21 Range/Units 15:43 15:43 RDW (13.2-15.2) % Collin % (Auto) (0.0-7.3) % Lymph # (Auto) (1.2-5.4) K/mm3 D-Dimer (0-234) ng/mlDDU Sodium (137-145) mmol/L Chloride (98-107) mmol/L Glucose 113 H (75-100) mg/dL Calcium (8.4-10.2) mg/dL Ferritin > 2000.0 H (30.0-300.0) ng/mL AST (5-40) units/L Lactate Dehydrogenase 706 H (91-180) units/L C-Reactive Protein 4.70 H (0.00-1.30) mg/dL Albumin (3.9-5) g/dL Assessment and Plan - Patient Problems (1) Acute respiratory failure with hypoxia Current Visit: Yes Status: Acute Plan to address problem: Supplemental oxygen, pulse oximetry, chest x-ray, nebulizer therapy, prone positioning while in bed, pulmonary toilet, incentive spirometry. (2) Pneumonia Current Visit: Yes Status: Acute Plan to address problem: Pneumonia protocol: Chest x-ray, CBC, CMP, IV antibiotic therapy, supplemental oxygen, pulse oximetry, nebulizer therapy, blood cultures. (3) Coronavirus infection Current Visit: Yes Status: Acute Plan to address problem: Coronavirus protocol: Contact precautions, isolation precautions, IV antibiotic therapy, IV steroid therapy, prophylactic anticoagulation, vitamin C therapy vitamin D therapy, daily zinc therapy, prone positioning while in bed, (4) Alcohol dependence Current Visit: Yes Status: Acute Qualifiers: Substance use status: uncomplicated Qualified Code(s): F10.20 - Alcohol dependence, uncomplicated Plan to address problem: CIWA protocol, thiamine, folic acid, multivitamin, banana bag, (5) DVT prophylaxis Current Visit: Yes Status: Acute Plan to address problem: SCD to bilateral lower extremities while in bed, prophylactic anticoagulation
[2020-10-20] MEDS ORDERED: SODIUM CHLORIDE 0.9% 500 ML 500 ML ONE (18:12)
[2020-10-20] MEDS ORDERED: THIAMINE 100 MG TAB PO ONE (18:34)
[2020-10-20] MEDS ORDERED: THIAMINE 100 MG, FOLIC ACID 1 MG, MULTIPLE VITAMIN INJ, ADULT 10 ML in SODIUM CHLORIDE ... IV ONE (18:34)
[2020-10-20] MEDS ORDERED: MULTIVITAMINS ,THERAPEUTIC TAB PO ONE (18:34)
[2020-10-20] MEDS: chlordiazePOXIDE 25 MG CAP PO SCH (20:00)
[2020-10-20] MEDS ORDERED: HEPARIN 5,000 UNIT/1 ML VIAL SUB-Q SCH (22:00)
[2020-10-20] MEDS ORDERED: NON-FORMULARY EACH (Famotidine [Pepcid] 40 MG Tablet) PO SCH (22:00)
[2020-10-20] MEDS: MORPHINE 2 MG/1 ML INJ IV PRN (22:56)
[2020-10-20] MEDS: ASCORBIC ACID 500 MG TAB PO SCH (22:57)
[2020-10-20] MEDS: methylPREDNISolone Sod Succinate 40 MG/1 ML INJ IV SCH (22:57)
[2020-10-20] MEDS: ZINC SULFATE 220 MG CAP PO SCH (22:57)
[2020-10-20] MEDS: FAMOTIDINE 20 MG TAB PO SCH (22:57)
[2020-10-21] MEDS: methylPREDNISolone Sod Succinate 40 MG/1 ML INJ IV SCH ×3 (05:27→21:42)
[2020-10-21] MEDS: ZINC SULFATE 220 MG CAP PO SCH ×2 (10:03→21:42)
[2020-10-21] MEDS: HEPARIN 5,000 UNIT/1 ML VIAL SUB-Q SCH ×3 (10:03→21:42)
[2020-10-21] MEDS: chlordiazePOXIDE 25 MG CAP PO SCH (10:03)
[2020-10-21] MEDS: CHOLECALCIFEROL (VIT D3) 1000 UNIT (25 mcg) TAB PO SCH (10:03)
[2020-10-21] MEDS: FOLIC ACID 1 MG TAB PO SCH (10:04)
[2020-10-21] MEDS: ASCORBIC ACID 500 MG TAB PO SCH ×2 (10:04→21:42)
[2020-10-21 10:39] LABS: Basophils % (Auto) 0.4 % (0.0-1.8); Hematocrit 36.1 % (35.5-45.6); Hemoglobin 12.4 gm/dl (11.8-15.2); Lymphocytes # (Auto) 0.8 K/mm3 (1.2-5.4); Lymphocytes % (Auto) 19.7 % (13.4-35.0); Mean Corpuscular HGB Conc 34 % (32-34); Mean Corpuscular Volume 87 fl (84-94); Monocytes # (Auto) 0.6 K/mm3 (0.0-0.8); Monocytes % (Auto) 14.1 % (0.0-7.3); Platelet Count 300 K/mm3 (140-440); Red Blood Count 4.17 M/mm3 (3.65-5.03)
[2020-10-21 10:49] LABS: BUN/Creatinine Ratio 15; Blood Urea Nitrogen 9 mg/dL (9-20); Calcium 8.2 mg/dL (8.4-10.2); Hemolysis Index 24
--- NOTE | 2020-10-21 11:04 | Progress Note ---
Assessment and Plan Assessment and plan: 30 YO Male with Asthma, Coronavirus Infection Diagnosed on October 09, 2020 presents to ED for evaluation. Patient reports "I do not feel well". Patient states that he has experienced fever, dry cough, loss of sense of smell, loss of sense of taste, multiple loose stools, body aches, shortness of breath over the past 4 days with persistently worsening symptoms over the same timeframe. Patient acknowledges use of nebulizer therapy without improvement in symptoms. Patient transported to [facility] via private vehicle for further care and evaluation of the aforementioned symptoms. The patient was seen and evaluated in the emergency department. All lab and imaging studies reviewed. Patient is lying in bed and using accessory muscles to breathe. Patient found to have a pulse oximetry of 84% on room air which is consistent with acute hypoxemic respiratory failure. Patient underwent chest x-ray which revealed bilateral pneumonia. Patient admitted to medical floor and initiated on pneumonia protocol as well as coronavirus protocol. Patient denies chills, chest pain, palpitation, skin rash, recent ill contacts, trauma, unilateral leg swelling, calf pain, individual/family history of DVT/bleeding/blood clotting disorders. No prior admission for review. All medication listed at time of admission has been reconciled. 10/21: Severe bibasilar infiltrates on chest x-ray. Elevated D-dimer we will obtain a CTA to rule out pulmonary embolism. Pulmonary consulted due to severe hypoxia. Plan of care discussed with the patient in detail hyponatremia is improving. (1) Acute respiratory failure with hypoxia Current Visit: Yes Status: Acute Plan to address problem: Supplemental oxygen, pulse oximetry, chest x-ray, nebulizer therapy, prone positioning while in bed, pulmonary toilet, incentive spirometry. (2) Pneumonia Current Visit: Yes Status: Acute Plan to address problem: Pneumonia protocol: Chest x-ray, CBC, CMP, IV antibiotic therapy, supplemental oxygen, pulse oximetry, nebulizer therapy, blood cultures. (3) Coronavirus infection Current Visit: Yes Status: Acute Plan to address problem: Coronavirus protocol: Contact precautions, isolation precautions, IV antibiotic therapy, IV steroid therapy, prophylactic anticoagulation, vitamin C therapy vitamin D therapy, daily zinc therapy, prone positioning while in bed, (4) Alcohol dependence Current Visit: Yes Status: Acute Qualifiers: Substance use status: uncomplicated Qualified Code(s): F10.20 - Alcohol dependence, uncomplicated Plan to address problem: CIWA protocol, thiamine, folic acid, multivitamin, banana bag, (5) Hyponatremia (6) DVT prophylaxis Current Visit: Yes Status: Acute Plan to address problem: SCD to bilateral lower extremities while in bed, prophylactic anticoagulation History Interval history: Patient seen and examined this morning show some improvement still with severe shortness of breath on exertion Hospitalist Physical - Physical exam Narrative exam: VITAL SIGNS: Reviewed. GENERAL: The patient appears normally developed, Vital signs as documented. HEAD: No signs of head trauma. EYES: Pupils are equal. Extraocular motions intact. EARS: Hearing grossly intact. MOUTH: Oropharynx is normal. NECK: No adenopathy, no JVD. CHEST: Chest with diminished breath sounds bilaterally. No wheezes, rales, or rhonchi. CARDIAC: Regular rate and rhythm. S1 and S2, without murmurs, gallops, or rubs. VASCULAR: No Edema. Peripheral pulses normal and equal in all extremities. ABDOMEN: Soft, non tender and non distended. No rebound or guarding, and no masses palpated. Bowel Sounds normal. MUSCULOSKELETAL: Good range of motion of all major joints. Extremities without clubbing, cyanosis or edema. NEUROLOGIC EXAM: Alert and oriented x 3 No focal sensory or strength deficits. Speech normal. Follows commands. PSYCHIATRIC: Mood normal. SKIN: detail exam as documented in skin assessment - Constitutional Vitals: Temp Pulse Resp BP Pulse Ox 99.4 F 73 18 95/52 94 10/21/20 03:51 10/21/20 03:51 10/21/20 03:51 10/21/20 03:51 10/21/20 03:51 General appearance: Present: mild distress Results - Labs CBC & Chem 7: 10/21/20 10:11 10/21/20 10:11 Labs: Laboratory Last Values WBC 4.0 K/mm3 (4.5-11.0) L 10/21/20 10:11 RBC 4.17 M/mm3 (3.65-5.03) 10/21/20 10:11 Hgb 12.4 gm/dl (11.8-15.2) 10/21/20 10:11 Hct 36.1 % (35.5-45.6) 10/21/20 10:11 MCV 87 fl (84-94) 10/21/20 10:11 MCH 30 pg (28-32) 10/21/20 10:11 MCHC 34 % (32-34) 10/21/20 10:11 RDW 13.0 % (13.2-15.2) L 10/21/20 10:11 Plt Count 300 K/mm3 (140-440) 10/21/20 10:11 Lymph % (Auto) 19.7 % (13.4-35.0) 10/21/20 10:11 Miller % (Auto) 14.1 % (0.0-7.3) H 10/21/20 10:11 Eos % (Auto) 0.0 % (0.0-4.3) 10/21/20 10:11 Baso % (Auto) 0.4 % (0.0-1.8) 10/21/20 10:11 Lymph # (Auto) 0.8 K/mm3 (1.2-5.4) L 10/21/20 10:11 Miller # (Auto) 0.6 K/mm3 (0.0-0.8) 10/21/20 10:11 Eos # (Auto) 0.0 K/mm3 (0.0-0.4) 10/21/20 10:11 Baso # (Auto) 0.0 K/mm3 (0.0-0.1) 10/21/20 10:11 Seg Neutrophils % 65.8 % (40.0-70.0) 10/21/20 10:11 Seg Neutrophils # 2.6 K/mm3 (1.8-7.7) 10/21/20 10:11 D-Dimer 1144.84 ng/mlDDU (0-234) H 10/20/20 15:43 Sodium 134 mmol/L (137-145) L 10/21/20 10:11 Potassium 4.8 mmol/L (3.6-5.0) D 10/21/20 10:11 Chloride 100.9 mmol/L (98-107) 10/21/20 10:11 Carbon Dioxide 25 mmol/L (22-30) 10/21/20 10:11 Anion Gap 13 mmol/L 10/21/20 10:11 BUN 9 mg/dL (9-20) 10/21/20 10:11 Creatinine 0.6 mg/dL (0.8-1.3) L 10/21/20 10:11 Estimated GFR > 60 ml/min 10/21/20 10:11 BUN/Creatinine Ratio 15 % 10/21/20 10:11 Glucose 124 mg/dL (75-100) H 10/21/20 10:11 Lactic Acid 1.20 mmol/L (0.7-2.0) 10/20/20 15:43 Calcium 8.2 mg/dL (8.4-10.2) L 10/21/20 10:11 Ferritin > 2000.0 ng/mL (30.0-300.0) H 10/20/20 15:43 Total Bilirubin 0.30 mg/dL (0.1-1.2) 10/20/20 15:43 AST 82 units/L (5-40) H 10/20/20 15:43 ALT 24 units/L (7-56) 10/20/20 15:43 Alkaline Phosphatase 37 units/L (35-129) 10/20/20 15:43 Lactate Dehydrogenase 706 units/L (91-180) H 10/20/20 15:43 Lactate Dehydrogenase 712 units/L (91-180) H 10/20/20 15:43 C-Reactive Protein 4.70 mg/dL (0.00-1.30) H 10/20/20 15:43 C-Reactive Protein 4.80 mg/dL (0.00-1.30) H 10/20/20 15:43 Total Protein 7.7 g/dL (6.3-8.2) 10/20/20 15:43 Albumin 3.6 g/dL (3.9-5) L 10/20/20 15:43 Albumin/Globulin Ratio 0.9 % 10/20/20 15:43 Procalcitonin 1.15 ng/mL (<0.15) 10/20/20 15:43 Microbiology: Microbiology 10/20/20 15:50 Peripheral/Venous Blood Culture - Preliminary Culture in Progress 10/20/20 15:43 Peripheral/Venous Blood Culture - Preliminary Culture in Progress Hennessy/IV: Voiding Method Urinal Active Medications - Current Medications Current Medications: Generic Name Dose Route Start Last Admin Trade Name Freq PRN Reason Stop Dose Admin Acetaminophen 650 mg 10/20/20 17:07 Acetaminophen 325 Mg Tab PO Q4H PRN Pain MILD(1-3)/Fever >100.5/GREEN Albuterol 2.5 mg 10/20/20 17:07 Albuterol 2.5 Mg/3 Ml Nebu IH Q4H PRN Shortness Of Breath Ascorbic Acid 500 mg 10/20/20 22:00 10/21/20 10:04 Ascorbic Acid 500 Mg Tab PO 500 mg BID [place] Administration Chlordiazepoxide HCl 25 mg 10/20/20 18:00 10/21/20 10:03 Chlordiazepoxide 25 Mg Cap PO 25 mg DAILY [place] Administration Cholecalciferol 1,000 unit 10/21/20 10:00 10/21/20 10:03 Cholecalciferol (Vit D3) 1000 Unit (25 Mcg) Tab PO 1,000 unit QDAY [place] Administration Famotidine 40 mg 10/20/20 22:00 10/20/20 22:57 Famotidine 20 Mg Tab PO 40 mg QHS [place] Administration Folic Acid 1 mg 10/21/20 10:00 10/21/20 10:04 Folic Acid 1 Mg Tab PO 1 mg QDAY [place] Administration Heparin Sodium (Porcine) 5,000 unit 10/21/20 08:30 10/21/20 10:03 Heparin 5,000 Unit/1 Ml Vial SUB-Q 5,000 unit Q8HR [place] Administration Ceftriaxone Sodium 2 gm in 100 mls @ 200 mls/hr 10/21/20 16:00 Rocephin/Ns 2 Gm/100 Ml IV Q24H [facility] Protocol Azithromycin 500 mg in 250 mls @ 250 mls/hr 10/21/20 17:00 Zithromax/Ns IV 10/24/20 17:59 Q24H [facility] Protocol Methylprednisolone Sodium Succinate 40 mg 10/20/20 22:00 10/21/20 05:27 Methylprednisolone Sod Succinate 40 Mg/1 Ml Inj IV 40 mg Q8HR [place] Administration Morphine Sulfate 2 mg 10/20/20 21:45 10/20/20 22:56 Morphine 2 Mg/1 Ml Inj IV 2 mg Q4H PRN Administration Pain, Moderate (4-6) Ondansetron HCl 4 mg 10/20/20 17:10 Ondansetron 4 Mg Odt Tab PO Q8H PRN Vomiting Sodium Chloride 10 ml 10/20/20 22:00 10/21/20 10:04 Sodium Chloride 0.9% 10 Ml Flush Syringe IV 10 ml BID [place] Administration Sodium Chloride 10 ml 10/20/20 17:07 Sodium Chloride 0.9% 10 Ml Flush Syringe IV PRN PRN LINE FLUSH Zinc Sulfate 220 mg 10/20/20 22:00 10/21/20 10:03 Zinc Sulfate 220 Mg Cap PO 220 mg BID [place] Administration
--- NOTE | 2020-10-21 11:31 | Cat Scan Report ---
CTA CHEST WITH CONTRAST INDICATION / CLINICAL INFORMATION: Shortness of breath. TECHNIQUE: Axial CT images were obtained through the chest after injection of IV contrast. 3 plane MIP and/or 3D reconstructions were produced. All CT scans at this location are performed using CT dose reduction f or ALARA by means of automated exposure control. COMPARISON: Chest radiograph dated 10/20/2020. FINDINGS: PULMONARY ARTERIES: No pulmonary emboli. THORACIC AORTA: No significant abnormality. HEART: No significant abnormality. CORONARY ARTERIES: No significant calcification. MEDIASTINUM / SHAQ: No significant abnormality. PLEURA: No pleural effusion. No pneumothorax. LUNGS: There are diffuse patchy, predominantly peripherally oriented groundglass density changes thro ughout the lungs. This is more severe in the lower lobes and right middle lobe. ADDITIONAL FINDINGS: None. UPPER ABDOMEN: No acute findings. SKELETAL STRUCTURES: No significant osseous abnormality. IMPRESSION: 1. No CT evidence for pulmonary embolism. 2. Severe diffuse, patchy groundglass density changes predominantly within the lower lobes and right middle lobe are most suggestive of an atypical or viral infectious process. Signer Name: Lorne Mcintosh MD Signed: 10/21/2020 11:26 AM Workstation Name: [id number]
--- NOTE | 2020-10-21 14:12 | Consultation ---
History of Present Illness - Reason for Consult Consult date: 10/21/20 - History of Present Illness 30-year-old male past medical history asthma presented to the hospital complaining of feeling unwell. He was initially diagnosed with COVID-19 on 10/09/2020. Over the past 4 days he complains of typical Covid symptoms which been progressively worse since starting. He was found to be hypoxic on admission. Afebrile with T-max 100.2 with a white count of 4. Procalcitonin elevated at 1.15, normal renal function. Elevated liver enzymes, elevated inflammatory markers. Imaging personally reviewed: Chest CTA: Severe diffuse patchy groundglass Review of systems: Deferred to reduce to the risk of transmission of COVID-19 Past History Past Medical History: other (See HPI) Past Surgical History: No surgical history, Other (Reviewed) Social history: single, alcohol abuse. denies: smoking, prescription drug abuse Family history: hypertension Medications and Allergies Allergies Allergy/AdvReac Type Severity Reaction Status Date / Time coconut Allergy Anaphylaxis Verified 04/14/19 08:15 pollen Allergy Swelling Uncoded 09/11/17 19:34 Home Medications Medication Instructions Recorded Confirmed Last Taken Type Ibuprofen [Motrin] 600 mg PO BID PRN 04/21/13 10/20/20 07/08/13 History ALBUTEROL NEB's [Proventil 0.083% 2.5 mg IH Q4H PRN #25 neb 09/16/13 10/20/20 Unknown Rx NEBS] Albuterol Sulfate [Ventolin HFA] 2 puff IH Q4H PRN #1 hfa.aer.ad 09/16/13 10/20/20 Unknown Rx predniSONE [Deltasone] 20 mg PO TID #15 tab 09/16/13 10/20/20 Unknown Rx Ibuprofen [Ibuprofen 800] 800 mg PO QID 28 Days #7 tablet 09/12/17 10/20/20 Unknown Rx Albuterol Mdi (or & Nicu Only) 1 puff IH Q4-6H PRN #1 inha 01/24/18 10/20/20 Unknown Rx [ProAir HFA Inhaler] chlordiazePOXIDE [Librium] 25 mg PO DAILY #20 capsule 01/24/18 10/20/20 Unknown Rx Neomycn/Bacitrc/Polymyx/Pramox 1 applicatio TP BID 14 Days #1 tube 09/23/18 10/20/20 Unknown Rx [Neosporin + Pain Relief Oint] cephALEXin [Keflex] 500 mg PO TID #30 capsule 09/23/18 10/20/20 Unknown Rx Ibuprofen [Motrin 800 MG tab] 800 mg PO Q8HR PRN #20 tablet 04/14/19 10/20/20 Unknown Rx traMADoL [Ultram 50 MG tab] 50 mg PO Q6HR PRN #12 tablet 04/14/19 10/20/20 Unknown Rx Famotidine [Pepcid] 40 mg PO QHS #30 tablet 06/24/19 10/20/20 Unknown Rx Ondansetron [Zofran Odt] 4 mg PO Q8HR PRN #12 tab.rapdis 06/24/19 10/20/20 Unknown Rx Active Meds: Active Medications Acetaminophen (Acetaminophen 325 Mg Tab) 650 mg PO Q4H PRN PRN Reason: Pain MILD(1-3)/Fever >100.5/GREEN Albuterol (Albuterol 2.5 Mg/3 Ml Nebu) 2.5 mg IH Q4H PRN PRN Reason: Shortness Of Breath Ascorbic Acid (Ascorbic Acid 500 Mg Tab) 500 mg PO BID [facility] Last Admin: 10/21/20 10:04 Dose: 500 mg Documented by: Chlordiazepoxide HCl (Chlordiazepoxide 25 Mg Cap) 25 mg PO DAILY [facility] Last Admin: 10/21/20 10:03 Dose: 25 mg Documented by: Cholecalciferol (Cholecalciferol (Vit D3) 1000 Unit (25 Mcg) Tab) 1,000 unit PO QDAY [facility] Last Admin: 10/21/20 10:03 Dose: 1,000 unit Documented by: Famotidine (Famotidine 20 Mg Tab) 40 mg PO QHS [facility] Last Admin: 10/20/20 22:57 Dose: 40 mg Documented by: Folic Acid (Folic Acid 1 Mg Tab) 1 mg PO QDAY [facility] Last Admin: 10/21/20 10:04 Dose: 1 mg Documented by: Heparin Sodium (Porcine) (Heparin 5,000 Unit/1 Ml Vial) 5,000 unit SUB-Q Q8HR [facility] Last Admin: 10/21/20 10:03 Dose: 5,000 unit Documented by: Ceftriaxone Sodium (Rocephin/Ns 2 Gm/100 Ml) 2 gm in 100 mls @ 200 mls/hr IV Q24H [facility]; Protocol Azithromycin (Zithromax/Ns) 500 mg in 250 mls @ 250 mls/hr IV Q24H [place]; Protocol Stop: 10/24/20 17:59 Methylprednisolone Sodium Succinate (Methylprednisolone Sod Succinate 40 Mg/1 Ml Inj) 40 mg IV Q8HR [facility] Last Admin: 10/21/20 05:27 Dose: 40 mg Documented by: Morphine Sulfate (Morphine 2 Mg/1 Ml Inj) 2 mg IV Q4H PRN PRN Reason: Pain, Moderate (4-6) Last Admin: 10/20/20 22:56 Dose: 2 mg Documented by: Ondansetron HCl (Ondansetron 4 Mg Odt Tab) 4 mg PO Q8H PRN PRN Reason: Vomiting Sodium Chloride (Sodium Chloride 0.9% 10 Ml Flush Syringe) 10 ml IV BID [place] Last Admin: 10/21/20 10:04 Dose: 10 ml Documented by: Sodium Chloride (Sodium Chloride 0.9% 10 Ml Flush Syringe) 10 ml IV PRN PRN PRN Reason: LINE FLUSH Zinc Sulfate (Zinc Sulfate 220 Mg Cap) 220 mg PO BID [place] Last Admin: 10/21/20 10:03 Dose: 220 mg Documented by: Physical Examination - Physical Exam Narrative exam: Physical exam deferred to reduce risk of transmission of COVID-19. Please refer to primary team's note. - Constitutional Vitals: Vital Signs Temp Pulse Resp BP Pulse Ox 99.4 F 73 18 95/52 95 10/21/20 03:51 10/21/20 03:51 10/21/20 03:51 10/21/20 03:51 10/21/20 11:34 Temperature -Last 24 Hours Temperature 99.4 F Temperature 100.2 F Temperature 95.9 F Results - Labs CBC & Chem 7: 10/21/20 10:11 10/21/20 10:11 Labs: Abnormal lab results 10/20/20 10/20/20 10/20/20 Range/Units 15:43 15:43 15:43 WBC (4.5-11.0) K/mm3 RDW 12.8 L (13.2-15.2) % [place] % (Auto) 12.4 H (0.0-7.3) % Lymph # (Auto) 0.8 L (1.2-5.4) K/mm3 D-Dimer 1144.84 H (0-234) ng/mlDDU Sodium 129 L (137-145) mmol/L Chloride 93.3 L (98-107) mmol/L Creatinine (0.8-1.3) mg/dL Glucose 109 H (75-100) mg/dL Calcium 8.2 L (8.4-10.2) mg/dL Ferritin (30.0-300.0) ng/mL AST 82 H (5-40) units/L Lactate Dehydrogenase 712 H (91-180) units/L C-Reactive Protein 4.80 H (0.00-1.30) mg/dL Albumin 3.6 L (3.9-5) g/dL 10/20/20 10/20/20 10/21/20 Range/Units 15:43 15:43 10:11 WBC 4.0 L (4.5-11.0) K/mm3 RDW 13.0 L (13.2-15.2) % [place] % (Auto) 14.1 H (0.0-7.3) % Lymph # (Auto) 0.8 L (1.2-5.4) K/mm3 D-Dimer (0-234) ng/mlDDU Sodium (137-145) mmol/L Chloride (98-107) mmol/L Creatinine (0.8-1.3) mg/dL Glucose 113 H (75-100) mg/dL Calcium (8.4-10.2) mg/dL Ferritin > 2000.0 H (30.0-300.0) ng/mL AST (5-40) units/L Lactate Dehydrogenase 706 H (91-180) units/L C-Reactive Protein 4.70 H (0.00-1.30) mg/dL Albumin (3.9-5) g/dL 10/21/20 Range/Units 10:11 WBC (4.5-11.0) K/mm3 RDW (13.2-15.2) % [place] % (Auto) (0.0-7.3) % Lymph # (Auto) (1.2-5.4) K/mm3 D-Dimer (0-234) ng/mlDDU Sodium 134 L (137-145) mmol/L Chloride (98-107) mmol/L Creatinine 0.6 L (0.8-1.3) mg/dL Glucose 124 H (75-100) mg/dL Calcium 8.2 L (8.4-10.2) mg/dL Ferritin (30.0-300.0) ng/mL AST (5-40) units/L Lactate Dehydrogenase (91-180) units/L C-Reactive Protein (0.00-1.30) mg/dL Albumin (3.9-5) g/dL Assessment and Plan Cultures: Blood culture 10/20/2020 no growth Urine culture Sputum culture Wound culture A/P: 30 yo M PMHx asthma admitted with COVID pneumonia. #Severe COVID-19 pneumonia: Patient presented with a week of symptoms, chest x- ray with diffuse bilateral infiltrates. Inflammatory markers elevated. No PE on chest CT. Diagnosed 10/09/2020. #Acute hypoxemic respiratory failure: Likely secondary to COVID-19 infection. Currently on 3L [place] #Asthma Recs: -On high-dose steroids given background of asthma. -Remdesivir 200 mg IV q day x 1 followed by 100 mg IV q day x 4 days. may be of minimal benefit given time since diagnosis, however has new onset typical symptoms. -Obtain q48-72h inflammatory markers - ferritin, Ddimer, CRP, LDH -Continue ceftriaxone 2 gm IV qday and azithromycin 500 mg PO qday for 5 days given elevated procalcitonin. -Anticoagulation per hospital protocol -Proning as able Thank you for the consult, we will continue to follow. MD Ansley [facility] O: [phone] F: [phone]
[2020-10-21] MEDS ORDERED: REMDESIVIR 100 MG VIAL IV ONE (16:00)
[2020-10-21] MEDS ORDERED: REMDESIVIR 200 MG in SODIUM CHLORIDE 0.9% 250ML 250 ML IV ONE (16:00)
[2020-10-21] MEDS: cefTRIAXone/NS 2 GM/100 ML 2 GM/100 ML BAG IV SCH (16:42)
[2020-10-21] MEDS: AZITHROMYCIN/NS 500 MG/250 ML 500 MG/250 ML BAG IV SCH (16:42)
[2020-10-21] MEDS: SODIUM CHLORIDE 0.9% 50 ML IVPB IV SCH (16:43)
--- NOTE | 2020-10-21 18:03 | Consultation ---
History of Present Illness Consult date: 10/21/20 Reason for consult: dyspnea, cough, asthma, pneumonia History of present illness: 30 YO Male with Asthma, Coronavirus Infection Diagnosed on October 09, 2020 presents to ED for evaluation. Patient stated that he has experienced fever, dry cough, loss of sense of smell, loss of sense of taste, multiple loose stools, body aches, shortness of breath over the past 4 days with persistently worsening symptoms over the same timeframe. Patient acknowledges use of nebulizer therapy without improvement in symptoms. Patient transported to [facility] via private vehicle for further care and evaluation of the aforementioned symptoms. The patient was seen and evaluated in the emergency department. All lab and imaging studies reviewed. Patient is lying in bed and using accessory muscles to breathe. Patient found to have a pulse oximetry of 84% on room air which is consistent with acute hypoxemic respiratory failure. Patient underwent chest x-ray which revealed bilateral pneumonia. Patient admitted to medical floor and initiated on pneumonia protocol as well as coronavirus protocol. Patient denies chills, chest pain, palpitation, skin rash, recent ill contacts, trauma, unilateral leg swelling, calf pain, individual/family history of DVT/bleeding/blood clotting disorders. Patient has no history of smoking, but admits he drinks alcohol. Denies drug abuse. 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 Patient is alert and awake. Resting on 4L O2. O2 saturation 99%. Patient complaining of SOB and cough. Denies fever. Patient has a low grade fever with no leukocytosis. Chest x-ray done on 10/20/20 reported severe bibasilar airspace pneumonia. The heart size is normal. CTA done on 10/21/[address] evidence for pulmonary embolism. Severe diffuse, patchy groundglass density changes predominantly within the lower lobes and right middle lobe are most suggestive of an atypical or viral infectious process. Patient receiving remdisivir, solumedrol, albuterol, s/c heparin, famotidine, ceftriaxone, azithromycin. Past History Past Medical History: other (Asthma) Past Surgical History: No surgical history, Other (Reviewed) Social history: single, alcohol abuse. denies: smoking, prescription drug abuse Family history: hypertension Medications and Allergies Allergies Allergy/AdvReac Type Severity Reaction Status Date / Time coconut Allergy Anaphylaxis Verified 11/08/19 08:15 pollen Allergy Swelling Uncoded 04/07/18 19:34 Home Medications Medication Instructions Recorded Confirmed Last Taken Type Ibuprofen [Motrin] 600 mg PO BID PRN 04/21/13 10/20/20 07/08/13 History ALBUTEROL NEB's [Proventil 0.083% 2.5 mg IH Q4H PRN #25 neb 09/16/13 10/20/20 Unknown Rx NEBS] Albuterol Sulfate [Ventolin HFA] 2 puff IH Q4H PRN #1 hfa.aer.ad 09/16/13 10/20/20 Unknown Rx predniSONE [Deltasone] 20 mg PO TID #15 tab 09/16/13 10/20/20 Unknown Rx Ibuprofen [Ibuprofen 800] 800 mg PO QID 28 Days #7 tablet 09/12/17 10/20/20 Unknown Rx Albuterol Mdi (or & Nicu Only) 1 puff IH Q4-6H PRN #1 inha 01/24/18 10/20/20 Unknown Rx [ProAir HFA Inhaler] chlordiazePOXIDE [Librium] 25 mg PO DAILY #20 capsule 01/24/18 10/20/20 Unknown Rx Neomycn/Bacitrc/Polymyx/Pramox 1 applicatio TP BID 14 Days #1 tube 09/23/18 10/20/20 Unknown Rx [Neosporin + Pain Relief Oint] cephALEXin [Keflex] 500 mg PO TID #30 capsule 09/23/18 10/20/20 Unknown Rx Ibuprofen [Motrin 800 MG tab] 800 mg PO Q8HR PRN #20 tablet 04/14/19 10/20/20 Unknown Rx traMADoL [Ultram 50 MG tab] 50 mg PO Q6HR PRN #12 tablet 04/14/19 10/20/20 Unknown Rx Famotidine [Pepcid] 40 mg PO QHS #30 tablet 06/24/19 10/20/20 Unknown Rx Ondansetron [Zofran Odt] 4 mg PO Q8HR PRN #12 tab.rapdis 06/24/19 10/20/20 Unknown Rx Active Meds: Active Medications Acetaminophen (Acetaminophen 325 Mg Tab) 650 mg PO Q4H PRN PRN Reason: Pain MILD(1-3)/Fever >100.5/GREEN Albuterol (Albuterol 2.5 Mg/3 Ml Nebu) 2.5 mg IH Q4H PRN PRN Reason: Shortness Of Breath Ascorbic Acid (Ascorbic Acid 500 Mg Tab) 500 mg PO BID [facility] Last Admin: 10/21/20 10:04 Dose: 500 mg Documented by: Chlordiazepoxide HCl (Chlordiazepoxide 25 Mg Cap) 25 mg PO DAILY [facility] Last Admin: 10/21/20 10:03 Dose: 25 mg Documented by: Cholecalciferol (Cholecalciferol (Vit D3) 1000 Unit (25 Mcg) Tab) 1,000 unit PO QDAY [facility] Last Admin: 10/21/20 10:03 Dose: 1,000 unit Documented by: Famotidine (Famotidine 20 Mg Tab) 40 mg PO QHS [facility] Last Admin: 10/20/20 22:57 Dose: 40 mg Documented by: Folic Acid (Folic Acid 1 Mg Tab) 1 mg PO QDAY [facility] Last Admin: 10/21/20 10:04 Dose: 1 mg Documented by: Heparin Sodium (Porcine) (Heparin 5,000 Unit/1 Ml Vial) 5,000 unit SUB-Q Q8HR [facility] Last Admin: 10/21/20 10:03 Dose: 5,000 unit Documented by: Ceftriaxone Sodium (Rocephin/Ns 2 Gm/100 Ml) 2 gm in 100 mls @ 200 mls/hr IV Q24H [facility]; Protocol Stop: 10/24/20 23:59 Azithromycin (Zithromax/Ns) 500 mg in 250 mls @ 250 mls/hr IV Q24H [facility]; Protocol Stop: 10/24/20 17:59 REMDESIVIR 200 mg/ Sodium (Chloride) 250 mls @ 500 mls/hr IV ONCE ONE Stop: 10/21/20 16:29 REMDESIVIR 100 mg/ Sodium (Chloride) 250 mls @ 500 mls/hr IV Q24HR@2100 [place] Stop: 10/25/20 21:29 Methylprednisolone Sodium Succinate (Methylprednisolone Sod Succinate 40 Mg/1 Ml Inj) 40 mg IV Q8HR [facility] Last Admin: 10/21/20 05:27 Dose: 40 mg Documented by: Morphine Sulfate (Morphine 2 Mg/1 Ml Inj) 2 mg IV Q4H PRN PRN Reason: Pain, Moderate (4-6) Last Admin: 10/20/20 22:56 Dose: 2 mg Documented by: Ondansetron HCl (Ondansetron 4 Mg Odt Tab) 4 mg PO Q8H PRN PRN Reason: Vomiting Sodium Chloride (Sodium Chloride 0.9% 10 Ml Flush Syringe) 10 ml IV BID [facility] Last Admin: 10/21/20 10:04 Dose: 10 ml Documented by: Sodium Chloride (Sodium Chloride 0.9% 10 Ml Flush Syringe) 10 ml IV PRN PRN PRN Reason: LINE FLUSH Sodium Chloride (Sodium Chloride 0.9% 50 Ml Ivpb) 50 ml IV Q24HR@2100 [facility] Stop: 10/25/20 21:01 Zinc Sulfate (Zinc Sulfate 220 Mg Cap) 220 mg PO BID [facility] Last Admin: 10/21/20 10:03 Dose: 220 mg Documented by: Review of Systems All systems: negative Physical Examination Vital signs: Vital Signs Temp Pulse Resp BP Pulse Ox 95.9 F L 118 H 26 H 102/40 84 10/20/20 15:17 10/20/20 15:17 10/20/20 15:17 10/20/20 15:17 10/20/20 15:17 General appearance: no acute distress, alert Eyes: non-icteric ENT: oropharynx moist Neck: supple Effort: normal Ascultation: Bilateral: rhonchi Cardiovascular: regular rate and rhythm Gastrointestinal: normoactive bowel sounds, non-distended Integumentary: normal Extremities: no cyanosis Musculoskeletal: no deformities Gait: normal gait, normal posture normal mental status, non-focal exam, pupils equal and round mood appropriate, affect normal Results - Laboratory Findings CBC and BMP: 10/21/20 10:11 10/21/20 10:11 PT/INR, D-dimer D-Dimer 1144.84 ng/mlDDU (0-234) H 10/20/20 15:43 Abnormal lab findings: Abnormal Labs 10/20/20 10/20/20 10/20/20 15:43 15:43 15:43 WBC RDW 12.8 L [place] % (Auto) 12.4 H Lymph # (Auto) 0.8 L D-Dimer 1144.84 H Sodium 129 L Chloride 93.3 L Creatinine Glucose 109 H Calcium 8.2 L Ferritin AST 82 H Lactate Dehydrogenase 712 H C-Reactive Protein 4.80 H Albumin 3.6 L 10/20/20 10/20/20 10/21/20 15:43 15:43 10:11 WBC 4.0 L RDW 13.0 L [place] % (Auto) 14.1 H Lymph # (Auto) 0.8 L D-Dimer Sodium Chloride Creatinine Glucose 113 H Calcium Ferritin > 2000.0 H AST Lactate Dehydrogenase 706 H C-Reactive Protein 4.70 H Albumin 10/21/20 10:11 WBC RDW [place] % (Auto) Lymph # (Auto) D-Dimer Sodium 134 L Chloride Creatinine 0.6 L Glucose 124 H Calcium 8.2 L Ferritin AST Lactate Dehydrogenase C-Reactive Protein Albumin - Diagnostic Findings Chest x-ray: report reviewed, image reviewed CT scan - chest: report reviewed, image reviewed Additional studies: XRay Report 10/20/20 Signed Patient: CHRIS HICKMAN MR#: [id number] : 1990 Acct:[id number] Age/Sex: 30 / M ADM Date: 10/20/20 Loc: ED Attending Dr: Ordering Physician: LAUREL GODINEZ Date of Service: 10/20/20 Procedure(s): XR chest 1V ap Accession Number(s): [id number] cc: LAUREL GODINEZ Fluoro Time In Minutes: Chest single view INDICATION: Cough with dyspnea IMPRESSION: Severe bibasilar airspace pneumonia. The heart size is normal. Cat Scan Report 10/21/20 Signed Patient: CHRIS HICKMAN MR#: [id number] : 1990 Acct:[id number] Age/Sex: 30 / M ADM Date: 10/20/20 Loc: 3A A358-[address]: JONNY MASTERS MD Ordering Physician: JONNY MASTERS MD Date of Service: 10/21/20 Procedure(s): CT angio chest Accession Number(s): [id number] cc: JONNY MASTERS MD CTA CHEST WITH CONTRAST INDICATION / CLINICAL INFORMATION: Shortness of breath. TECHNIQUE: Axial CT images were obtained through the chest after injection of IV contrast. 3 plane MIP and/or 3D reconstructions were produced. All CT scans at this location are performed using CT dose reduction for ALARA by means of automated exposure control. COMPARISON: Chest radiograph dated 10/20/2020. FINDINGS: PULMONARY ARTERIES: No pulmonary emboli. THORACIC AORTA: No significant abnormality. HEART: No significant abnormality. CORONARY ARTERIES: No significant calcification. MEDIASTINUM / SHAQ: No significant abnormality. PLEURA: No pleural effusion. No pneumothorax. LUNGS: There are diffuse patchy, predominantly peripherally oriented groundglass density changes throughout the lungs. This is more severe in the lower lobes and right middle lobe. ADDITIONAL FINDINGS: None. UPPER ABDOMEN: No acute findings. SKELETAL STRUCTURES: No significant osseous abnormality. IMPRESSION: 1. No CT evidence for pulmonary embolism. 2. Severe diffuse, patchy groundglass density changes predominantly within the lower lobes and right middle lobe are most suggestive of an atypical or viral infectious process. Assessment and Plan 30 YO Male with Asthma, Coronavirus Infection Diagnosed on October 09, 2020 presents to ED for evaluation. Patient reports "I do not feel well". Patient states that he has experienced fever, dry cough, loss of sense of smell, loss of sense of taste, multiple loose stools, body aches, shortness of breath over the past 4 days with persistently worsening symptoms over the same timeframe. Patient acknowledges use of nebulizer therapy without improvement in symptoms. Patient transported to [facility] via private vehicle for further care and evaluation of the aforementioned symptoms. The patient was seen and evaluated in the emergency department. All lab and imaging studies reviewed. Patient is lying in bed and using accessory muscles to breathe. Patient found to have a pulse oximetry of 84% on room air which is consistent with acute hypoxemic respiratory failure. Patient underwent chest x-ray which revealed bilateral pneumonia. Patient admitted to medical floor and initiated on pneumonia protocol as well as coronavirus protocol. Patient denies chills, chest pain, palpitation, skin rash, recent ill contacts, trauma, unilateral leg swelling, calf pain, individual/family history of DVT/bleeding/blood clotting disorders. Patient has no history of smoking, but admits he drinks alcohol. Denies drug abuse. 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 Patient is alert and awake. Resting on 4L O2. O2 saturation 99%. Patient complaining of SOB and cough. Denies fever. Patient has a low grade fever with no leukocytosis. Chest x-ray done on 10/20/20 reported severe bibasilar airspace pneumonia. The heart size is normal. CTA done on 10/21/[address] evidence for pulmonary embolism. Severe diffuse, patchy groundglass density changes predominantly within the lower lobes and right middle lobe are most suggestive of an atypical or viral infectious process. Patient receiving remdisivir, solumedrol, albuterol, s/c heparin, famotidine, ceftriaxone, azithromycin. I spent critical care time of 50 minutes on this patient obtaining history, review chart, examining the patient , review labs, chest xray, CT of chest ,talking to the respiratory therapy, nursing staff and work out plan of treatment in this critically ill COvid Positive patient. - Patient Problems (1) Acute respiratory failure with hypoxia Current Visit: Yes Status: Acute Plan to address problem: O2 4 litres via nasal canula. Continue remdisivir, solumedrol Continue albuterol inhaler. Continue s/c heparin. Continue famotidine. ABGs on room air. (2) Alcohol dependence Current Visit: Yes Status: Acute Qualifiers: Substance use status: uncomplicated Qualified Code(s): F10.20 - Alcohol dependence, uncomplicated Plan to address problem: Counseled to stop drinking alcohol. (3) Coronavirus infection Current Visit: Yes Status: Acute Plan to address problem: Patient is on remdisivir, solumedrol. Management as per ID. (4) Pneumonia due to COVID-19 virus Current Visit: Yes Status: Acute Plan to address problem: Patient is on ceftriaxone and azithromycin. (5) Asthma Current Visit: Yes Status: Acute Plan to address problem: O2 4 litres via nasal canula. Continue solumedrol Continue albuterol inhaler. Continue s/c heparin. Continue famotidine. ABGs on room air.
[2020-10-21] MEDS: FAMOTIDINE 20 MG TAB PO SCH (21:42)
[2020-10-22] MEDS: methylPREDNISolone Sod Succinate 40 MG/1 ML INJ IV SCH ×3 (06:12→21:33)
[2020-10-22] MEDS: HEPARIN 5,000 UNIT/1 ML VIAL SUB-Q SCH ×3 (06:12→21:31)
--- NOTE | 2020-10-22 06:55 | Progress Note ---
Assessment and Plan Assessment and plan: 30 YO Male with Asthma, Coronavirus Infection Diagnosed on October 09, 2020 presents to ED for evaluation. Patient reports "I do not feel well". Patient states that he has experienced fever, dry cough, loss of sense of smell, loss of sense of taste, multiple loose stools, body aches, shortness of breath over the past 4 days with persistently worsening symptoms over the same timeframe. Patient acknowledges use of nebulizer therapy without improvement in symptoms. Patient transported to [facility] via private vehicle for further care and evaluation of the aforementioned symptoms. The patient was seen and evaluated in the emergency department. All lab and imaging studies reviewed. Patient is lying in bed and using accessory muscles to breathe. Patient found to have a pulse oximetry of 84% on room air which is consistent with acute hypoxemic respiratory failure. Patient underwent chest x-ray which revealed bilateral pneumonia. Patient admitted to medical floor and initiated on pneumonia protocol as well as coronavirus protocol. Patient denies chills, chest pain, palpitation, skin rash, recent ill contacts, trauma, unilateral leg swelling, calf pain, individual/family history of DVT/bleeding/blood clotting disorders. No prior admission for review. All medication listed at time of admission has been reconciled. 10/21: Severe bibasilar infiltrates on chest x-ray. Elevated D-dimer we will obtain a CTA to rule out pulmonary embolism. Pulmonary consulted due to severe hypoxia. Plan of care discussed with the patient in detail hyponatremia is improving. (1) Acute respiratory failure with hypoxia Current Visit: Yes Status: Acute Plan to address problem: Supplemental oxygen, pulse oximetry, chest x-ray, nebulizer therapy, prone positioning while in bed, pulmonary toilet, incentive spirometry. (2) Pneumonia Current Visit: Yes Status: Acute Plan to address problem: Pneumonia protocol: Chest x-ray, CBC, CMP, IV antibiotic therapy, supplemental oxygen, pulse oximetry, nebulizer therapy, blood cultures. (3) Coronavirus infection Current Visit: Yes Status: Acute Plan to address problem: Coronavirus protocol: Contact precautions, isolation precautions, IV antibiotic therapy, IV steroid therapy, prophylactic anticoagulation, vitamin C therapy vitamin D therapy, daily zinc therapy, prone positioning while in bed, (4) Alcohol dependence Current Visit: Yes Status: Acute Qualifiers: Substance use status: uncomplicated Qualified Code(s): F10.20 - Alcohol dependence, uncomplicated Plan to address problem: CIWA protocol, thiamine, folic acid, multivitamin, banana bag, (5) Hyponatremia (6) DVT prophylaxis Current Visit: Yes Status: Acute Plan to address problem: SCD to bilateral lower extremities while in bed, prophylactic anticoagulation 10/22/2020; patient is on 3 L of oxygen, patient was seen by ID and recommend to continue ceftriaxone and remdesivir for 5 days because of elevated D-dimer. Patient is on high dose of steroids because of asthma. Continue with remdesivir. History Interval history: Patient was seen and evaluated this morning, patient was on 3 L of oxygen. Patient shortness of breath is getting better but still has significant shortness of breath on ambulation. Hospitalist Physical - Physical exam Narrative exam: Not in cardiopulmonary distress. The patient appeared well nourished and normally developed. Vital signs as documented. Head exam is unremarkable. No scleral icterus . Neck is without jugular venous distension, thyromegaly, or carotid bruits. Lungs clear to auscultation bilaterally Cardiac exam reveals regular rate and Rhythm. Abdominal exam reveals normal bowel sounds, nontender, no organomegaly. Extremities are nonedematous and both femoral and pedal pulses are normal. 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 No focal weakness. - Constitutional Vitals: Temp Pulse Resp BP Pulse Ox 98.5 F 59 L 18 113/72 95 10/22/20 05:51 10/22/20 05:51 10/22/20 05:51 10/22/20 05:51 10/22/20 05:51 General appearance: Present: mild distress Results - Labs CBC & Chem 7: 10/22/20 08:04 10/22/20 08:04 Labs: Laboratory Last Values WBC 4.0 K/mm3 (4.5-11.0) L 10/21/20 10:11 RBC 4.17 M/mm3 (3.65-5.03) 10/21/20 10:11 Hgb 12.4 gm/dl (11.8-15.2) 10/21/20 10:11 Hct 36.1 % (35.5-45.6) 10/21/20 10:11 MCV 87 fl (84-94) 10/21/20 10:11 MCH 30 pg (28-32) 10/21/20 10:11 MCHC 34 % (32-34) 10/21/20 10:11 RDW 13.0 % (13.2-15.2) L 10/21/20 10:11 Plt Count 300 K/mm3 (140-440) 10/21/20 10:11 Lymph % (Auto) 19.7 % (13.4-35.0) 10/21/20 10:11 [place] % (Auto) 14.1 % (0.0-7.3) H 10/21/20 10:11 Eos % (Auto) 0.0 % (0.0-4.3) 10/21/20 10:11 Baso % (Auto) 0.4 % (0.0-1.8) 10/21/20 10:11 Lymph # (Auto) 0.8 K/mm3 (1.2-5.4) L 10/21/20 10:11 [place] # (Auto) 0.6 K/mm3 (0.0-0.8) 10/21/20 10:11 Eos # (Auto) 0.0 K/mm3 (0.0-0.4) 10/21/20 10:11 Baso # (Auto) 0.0 K/mm3 (0.0-0.1) 10/21/20 10:11 Seg Neutrophils % 65.8 % (40.0-70.0) 10/21/20 10:11 Seg Neutrophils # 2.6 K/mm3 (1.8-7.7) 10/21/20 10:11 D-Dimer 1144.84 ng/mlDDU (0-234) H 10/20/20 15:43 Sodium 134 mmol/L (137-145) L 10/21/20 10:11 Potassium 4.8 mmol/L (3.6-5.0) D 10/21/20 10:11 Chloride 100.9 mmol/L (98-107) 10/21/20 10:11 Carbon Dioxide 25 mmol/L (22-30) 10/21/20 10:11 Anion Gap 13 mmol/L 10/21/20 10:11 BUN 9 mg/dL (9-20) 10/21/20 10:11 Creatinine 0.6 mg/dL (0.8-1.3) L 10/21/20 10:11 Estimated GFR > 60 ml/min 10/21/20 10:11 BUN/Creatinine Ratio 15 % 10/21/20 10:11 Glucose 124 mg/dL (75-100) H 10/21/20 10:11 Lactic Acid 1.20 mmol/L (0.7-2.0) 10/20/20 15:43 Calcium 8.2 mg/dL (8.4-10.2) L 10/21/20 10:11 Ferritin > 2000.0 ng/mL (30.0-300.0) H 10/20/20 15:43 Total Bilirubin 0.30 mg/dL (0.1-1.2) 10/20/20 15:43 AST 82 units/L (5-40) H 10/20/20 15:43 ALT 24 units/L (7-56) 10/20/20 15:43 Alkaline Phosphatase 37 units/L (35-129) 10/20/20 15:43 Lactate Dehydrogenase 706 units/L (91-180) H 10/20/20 15:43 Lactate Dehydrogenase 712 units/L (91-180) H 10/20/20 15:43 C-Reactive Protein 4.70 mg/dL (0.00-1.30) H 10/20/20 15:43 C-Reactive Protein 4.80 mg/dL (0.00-1.30) H 10/20/20 15:43 Total Protein 7.7 g/dL (6.3-8.2) 10/20/20 15:43 Albumin 3.6 g/dL (3.9-5) L 10/20/20 15:43 Albumin/Globulin Ratio 0.9 % 10/20/20 15:43 Procalcitonin 1.15 ng/mL (<0.15) 10/20/20 15:43 Coronavirus (PCR) Positive (Negative) A 10/20/20 Unknown Microbiology: Microbiology 10/20/20 15:50 Peripheral/Venous Blood Culture - Preliminary NO GROWTH AFTER 24 HOURS 10/20/20 15:43 Peripheral/Venous Blood Culture - Preliminary NO GROWTH AFTER 24 HOURS Hen[place]y/IV: Voiding Method Bedside Commode Active Medications - Current Medications Current Medications: Generic Name Dose Route Start Last Admin Trade Name Freq PRN Reason Stop Dose Admin Acetaminophen 650 mg 10/20/20 17:07 Acetaminophen 325 Mg Tab PO Q4H PRN Pain MILD(1-3)/Fever >100.5/GREEN Albuterol 2.5 mg 10/20/20 17:07 Albuterol 2.5 Mg/3 Ml Nebu IH Q4H PRN Shortness Of Breath Ascorbic Acid 500 mg 10/20/20 22:00 10/21/20 21:42 Ascorbic Acid 500 Mg Tab PO 500 mg BID [place] Administration Chlordiazepoxide HCl 25 mg 10/20/20 18:00 10/21/20 10:03 Chlordiazepoxide 25 Mg Cap PO 25 mg DAILY [place] Administration Cholecalciferol 1,000 unit 10/21/20 10:00 10/21/20 10:03 Cholecalciferol (Vit D3) 1000 Unit (25 Mcg) Tab PO 1,000 unit QDAY [place] Administration Famotidine 40 mg 10/20/20 22:00 10/21/20 21:42 Famotidine 20 Mg Tab PO 40 mg QHS [place] Administration Folic Acid 1 mg 10/21/20 10:00 10/21/20 10:04 Folic Acid 1 Mg Tab PO 1 mg QDAY [place] Administration Heparin Sodium (Porcine) 5,000 unit 10/21/20 08:30 10/22/20 06:12 Heparin 5,000 Unit/1 Ml Vial SUB-Q 5,000 unit Q8HR [place] Administration Ceftriaxone Sodium 2 gm in 100 mls @ 200 mls/hr 10/21/20 16:00 10/21/20 18:19 Rocephin/Ns 2 Gm/100 Ml IV 10/24/20 23:59 Infused Q24H [place] Infusion Protocol Azithromycin 500 mg in 250 mls @ 250 mls/hr 10/21/20 17:00 10/21/20 18:20 Zithromax/Ns IV 10/24/20 17:59 Infused Q24H [place] Infusion Protocol REMDESIVIR 100 mg/ Sodium 250 mls @ 500 mls/hr 10/22/20 21:00 Chloride IV 10/25/20 21:29 Q24HR@2100 [place] Methylprednisolone Sodium Succinate 40 mg 10/20/20 22:00 10/22/20 06:12 Methylprednisolone Sod Succinate 40 Mg/1 Ml Inj IV 40 mg Q8HR [place] Administration Morphine Sulfate 2 mg 10/20/20 21:45 10/20/20 22:56 Morphine 2 Mg/1 Ml Inj IV 2 mg Q4H PRN Administration Pain, Moderate (4-6) Ondansetron HCl 4 mg 10/20/20 17:10 Ondansetron 4 Mg Odt Tab PO Q8H PRN Vomiting Sodium Chloride 10 ml 10/20/20 22:00 10/21/20 21:43 Sodium Chloride 0.9% 10 Ml Flush Syringe IV 10 ml BID [place] Administration Sodium Chloride 10 ml 10/20/20 17:07 Sodium Chloride 0.9% 10 Ml Flush Syringe IV PRN PRN LINE FLUSH Sodium Chloride 50 ml 10/21/20 16:00 10/21/20 16:43 Sodium Chloride 0.9% 50 Ml Ivpb IV 10/25/20 21:01 50 ml Q24HR@2100 [place] Administration Zinc Sulfate 220 mg 10/20/20 22:00 10/21/20 21:42 Zinc Sulfate 220 Mg Cap PO 220 mg BID [place] Administration
[2020-10-22 08:35] LABS: Hematocrit 40.1 % (35.5-45.6); Hemoglobin 13.7 gm/dl (11.8-15.2); Mean Corpuscular HGB Conc 34 % (32-34); Mean Corpuscular Volume 89 fl (84-94); Platelet Count 438 K/mm3 (140-440); Red Blood Count 4.51 M/mm3 (3.65-5.03)
[2020-10-22 08:59] LABS: Alanine Aminotransferase 26 units/L (7-56); Albumin 3.5 g/dL (3.9-5); Blood Urea Nitrogen 9 mg/dL (9-20); Calcium 8.9 mg/dL (8.4-10.2); Hemolysis Index 50
[2020-10-22 09:05] LABS: BUN/Creatinine Ratio 13
[2020-10-22] MEDS: ASCORBIC ACID 500 MG TAB PO SCH ×2 (09:29→21:33)
[2020-10-22] MEDS: FOLIC ACID 1 MG TAB PO SCH (09:29)
[2020-10-22] MEDS: ZINC SULFATE 220 MG CAP PO SCH ×2 (09:29→21:32)
[2020-10-22] MEDS: CHOLECALCIFEROL (VIT D3) 1000 UNIT (25 mcg) TAB PO SCH (09:29)
[2020-10-22] MEDS: chlordiazePOXIDE 25 MG CAP PO SCH (09:29)
--- NOTE | 2020-10-22 11:20 | Progress Note ---
Assessment and Plan Cultures: Blood culture 10/20/2020 no growth Urine culture Sputum culture Wound culture A/P: 30 yo M PMHx asthma admitted with COVID pneumonia. #Severe COVID-19 pneumonia: Patient presented with a week of symptoms, chest x- ray with diffuse bilateral infiltrates. Inflammatory markers elevated. No PE on chest CT. Diagnosed 10/09/2020. #Acute hypoxemic respiratory failure: Likely secondary to COVID-19 infection. Currently on 3L NC #Asthma Recs: -On high-dose steroids given background of asthma. -Remdesivir 200 mg IV q day x 1 followed by 100 mg IV q day x 4 days. may be of minimal benefit given time since diagnosis, however has new onset typical symptoms. -Obtain q48-72h inflammatory markers - ferritin, Ddimer, CRP, LDH -Continue ceftriaxone 2 gm IV qday and azithromycin 500 mg PO qday for 5 days given elevated procalcitonin. -Anticoagulation per hospital protocol -Proning as able Thank you for the consult, we will continue to follow. Ilda Kaplan MD [facility] ([facility] O: [phone] F: [phone] Subjective Date of service: 10/22/20 Interval history: Afebrile, normal white count. On 3L NC Objective - Exam Narrative Exam: Physical exam deferred to reduce risk of transmission of COVID-19. Please refer to primary team's note. - Constitutional Vitals: Vital Signs Temp Pulse Resp BP Pulse Ox 98.5 F 59 L 18 113/72 90 10/22/20 05:51 10/22/20 05:51 10/22/20 05:51 10/22/20 05:51 10/22/20 10:30 Temperature -Last 24 Hours Temperature 98.5 F Temperature 98.9 F Temperature 98.4 F Temperature 97.4 F - Labs CBC & Chem 7: 10/22/20 08:04 10/22/20 08:04 Labs: Abnormal lab results 10/20/20 10/22/20 10/22/20 Range/Units Unknown 08:04 08:04 RDW 13.0 L (13.2-15.2) % POC ABG pO2 (83-108) mmHg ABG Oxyhemoglobin (94-98) ABG Sodium (136.0-145.0) mmol/L ABG Glucose (65-95) mg/dL Creatinine 0.7 L (0.8-1.3) mg/dL Glucose 108 H (75-100) mg/dL Ferritin (30.0-300.0) ng/mL AST 54 H (5-40) units/L Alkaline Phosphatase 33 L (35-129) units/L Lactate Dehydrogenase 871 H (91-180) units/L C-Reactive Protein 2.20 H (0.00-1.30) mg/dL Albumin 3.5 L (3.9-5) g/dL Arterial Blood Glucose (65-95) mg/dL Coronavirus (PCR) Positive A (Negative) 10/22/20 10/22/20 Range/Units 08:04 10:04 RDW (13.2-15.2) % POC ABG pO2 66.8 L (83-108) mmHg ABG Oxyhemoglobin 91.5 L (94-98) ABG Sodium 134.5 L (136.0-145.0) mmol/L ABG Glucose 162 H (65-95) mg/dL Creatinine (0.8-1.3) mg/dL Glucose (75-100) mg/dL Ferritin 3929.0 H (30.0-300.0) ng/mL AST (5-40) units/L Alkaline Phosphatase (35-129) units/L Lactate Dehydrogenase (91-180) units/L C-Reactive Protein (0.00-1.30) mg/dL Albumin (3.9-5) g/dL Arterial Blood Glucose 162 H (65-95) mg/dL Coronavirus (PCR) (Negative)
[2020-10-22] MEDS: AZITHROMYCIN/NS 500 MG/250 ML 500 MG/250 ML BAG IV SCH (16:53)
[2020-10-22] MEDS: cefTRIAXone/NS 2 GM/100 ML 2 GM/100 ML BAG IV SCH (16:54)
--- NOTE | 2020-10-22 17:51 | Electrocardiograph Report ---
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
[2020-10-22] MEDS: FAMOTIDINE 20 MG TAB PO SCH (21:29)
[2020-10-22] MEDS: SODIUM CHLORIDE 0.9% 50 ML IVPB IV SCH (21:30)
[2020-10-22] MEDS: REMDESIVIR 100 MG in SODIUM CHLORIDE 0.9% 250ML 250 ML IV SCH (21:30)
[2020-10-22] MEDS: MORPHINE 2 MG/1 ML INJ IV PRN (21:32)
[2020-10-23] MEDS: methylPREDNISolone Sod Succinate 40 MG/1 ML INJ IV SCH ×3 (05:48→21:26)
[2020-10-23] MEDS: HEPARIN 5,000 UNIT/1 ML VIAL SUB-Q SCH ×3 (05:48→21:26)
[2020-10-23 08:06] LABS: Alanine Aminotransferase 22 units/L (7-56); Albumin 3.1 g/dL (3.9-5); Blood Urea Nitrogen 10 mg/dL (9-20); Calcium 8.7 mg/dL (8.4-10.2); Hemolysis Index 10
--- NOTE | 2020-10-23 08:29 | Progress Note ---
Assessment and Plan Assessment and plan: 30 YO Male with Asthma, Coronavirus Infection Diagnosed on October 09, 2020 presents to ED for evaluation. Patient reports "I do not feel well". Patient states that he has experienced fever, dry cough, loss of sense of smell, loss of sense of taste, multiple loose stools, body aches, shortness of breath over the past 4 days with persistently worsening symptoms over the same timeframe. Patient acknowledges use of nebulizer therapy without improvement in symptoms. Patient transported to [facility] via private vehicle for further care and evaluation of the aforementioned symptoms. The patient was seen and evaluated in the emergency department. All lab and imaging studies reviewed. Patient is lying in bed and using accessory muscles to breathe. Patient found to have a pulse oximetry of 84% on room air which is consistent with acute hypoxemic respiratory failure. Patient underwent chest x-ray which revealed bilateral pneumonia. Patient admitted to medical floor and initiated on pneumonia protocol as well as coronavirus protocol. Patient denies chills, chest pain, palpitation, skin rash, recent ill contacts, trauma, unilateral leg swelling, calf pain, individual/family history of DVT/bleeding/blood clotting disorders. No prior admission for review. All medication listed at time of admission has been reconciled. 10/21: Severe bibasilar infiltrates on chest x-ray. Elevated D-dimer we will obtain a CTA to rule out pulmonary embolism. Pulmonary consulted due to severe hypoxia. Plan of care discussed with the patient in detail hyponatremia is improving. (1) Acute respiratory failure with hypoxia Current Visit: Yes Status: Acute Plan to address problem: Supplemental oxygen, pulse oximetry, chest x-ray, nebulizer therapy, prone positioning while in bed, pulmonary toilet, incentive spirometry. (2) Pneumonia Current Visit: Yes Status: Acute Plan to address problem: Pneumonia protocol: Chest x-ray, CBC, CMP, IV antibiotic therapy, supplemental oxygen, pulse oximetry, nebulizer therapy, blood cultures. (3) Coronavirus infection Current Visit: Yes Status: Acute Plan to address problem: Coronavirus protocol: Contact precautions, isolation precautions, IV antibiotic therapy, IV steroid therapy, prophylactic anticoagulation, vitamin C therapy vitamin D therapy, daily zinc therapy, prone positioning while in bed, (4) Alcohol dependence Current Visit: Yes Status: Acute Qualifiers: Substance use status: uncomplicated Qualified Code(s): F10.20 - Alcohol dependence, uncomplicated Plan to address problem: CIWA protocol, thiamine, folic acid, multivitamin, banana bag, (5) Hyponatremia (6) DVT prophylaxis Current Visit: Yes Status: Acute Plan to address problem: SCD to bilateral lower extremities while in bed, prophylactic anticoagulation 10/22/2020; patient is on 3 L of oxygen, patient was seen by ID and recommend to continue ceftriaxone and remdesivir for 5 days because of elevated D-dimer. Patient is on high dose of steroids because of asthma. Continue with remdesivir. 10/23/2020; patient was off oxygen. Patient can be discharged home after 6- minute walk she does not need oxygen. History Interval history: Patient was seen and evaluated this morning, patient was on room air Hospitalist Physical - Physical exam Narrative exam: Not in cardiopulmonary distress. The patient appeared well nourished and normally developed. Vital signs as documented. Head exam is unremarkable. No scleral icterus . Neck is without jugular venous distension, thyromegaly, or carotid bruits. Lungs clear to auscultation bilaterally Cardiac exam reveals regular rate and Rhythm. Abdominal exam reveals normal bowel sounds, nontender, no organomegaly. Extremities are nonedematous and both femoral and pedal pulses are normal. 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 No focal weakness. - Constitutional Vitals: Temp Pulse Resp BP Pulse Ox 97.4 F L 45 L 18 107/69 98 10/23/20 03:59 10/23/20 03:59 10/23/20 03:59 10/23/20 03:59 10/23/20 03:59 General appearance: Present: mild distress Results - Labs CBC & Chem 7: 10/22/20 08:04 10/23/20 07:22 Labs: Laboratory Last Values WBC 9.9 K/mm3 (4.5-11.0) 10/22/20 08:04 RBC 4.51 M/mm3 (3.65-5.03) 10/22/20 08:04 Hgb 13.7 gm/dl (11.8-15.2) 10/22/20 08:04 Hct 40.1 % (35.5-45.6) 10/22/20 08:04 MCV 89 fl (84-94) 10/22/20 08:04 MCH 30 pg (28-32) 10/22/20 08:04 MCHC 34 % (32-34) 10/22/20 08:04 RDW 13.0 % (13.2-15.2) L 10/22/20 08:04 Plt Count 438 K/mm3 (140-440) 10/22/20 08:04 Lymph % (Auto) 19.7 % (13.4-35.0) 10/21/20 10:11 [place] % (Auto) 14.1 % (0.0-7.3) H 10/21/20 10:11 Eos % (Auto) 0.0 % (0.0-4.3) 10/21/20 10:11 Baso % (Auto) 0.4 % (0.0-1.8) 10/21/20 10:11 Lymph # (Auto) 0.8 K/mm3 (1.2-5.4) L 10/21/20 10:11 [place] # (Auto) 0.6 K/mm3 (0.0-0.8) 10/21/20 10:11 Eos # (Auto) 0.0 K/mm3 (0.0-0.4) 10/21/20 10:11 Baso # (Auto) 0.0 K/mm3 (0.0-0.1) 10/21/20 10:11 Seg Neutrophils % 65.8 % (40.0-70.0) 10/21/20 10:11 Seg Neutrophils # 2.6 K/mm3 (1.8-7.7) 10/21/20 10:11 D-Dimer 1144.84 ng/mlDDU (0-234) H 10/20/20 15:43 ABG pH 7.429 (7.320-7.450) 10/22/20 10:04 POC ABG pCO2 37.4 mmHg (32.0-48.0) 10/22/20 10:04 POC ABG pO2 66.8 mmHg (83-108) L 10/22/20 10:04 POC ABG HCO3 24.2 10/22/20 10:04 ABG O2 Saturation 92.8 (0-100) 10/22/20 10:04 POC ABG Base Excess 0.1 10/22/20 10:04 ABG Hemoglobin 12.4 (12.0-17.5) 10/22/20 10:04 ABG Oxyhemoglobin 91.5 (94-98) L 10/22/20 10:04 ABG Methemoglobin 0.3 (0.0-1.5) 10/22/20 10:04 ABG Sodium 134.5 mmol/L (136.0-145.0) L 10/22/20 10:04 ABG Potassium 4.2 mmol/L (3.40-4.50) 10/22/20 10:04 ABG Chloride 102.0 mmol/L (98-107) 10/22/20 10:04 ABG Glucose 162 mg/dL (65-95) H 10/22/20 10:04 Carboxyhemoglobin 1.1 (0.5-1.5) 10/22/20 10:04 FiO2 % 21.0 10/22/20 10:04 Sodium 138 mmol/L (137-145) 10/23/20 07:22 Potassium 4.8 mmol/L (3.6-5.0) 10/23/20 07:22 Chloride 103.1 mmol/L (98-107) 10/23/20 07:22 Carbon Dioxide 31 mmol/L (22-30) H 10/23/20 07:22 Anion Gap 9 mmol/L 10/23/20 07:22 BUN 10 mg/dL (9-20) 10/23/20 07:22 Creatinine 0.7 mg/dL (0.8-1.3) L 10/22/20 08:04 Estimated GFR > 60 ml/min 10/22/20 08:04 BUN/Creatinine Ratio 13 % 10/22/20 08:04 Glucose 127 mg/dL (75-100) H 10/23/20 07:22 Lactic Acid 1.20 mmol/L (0.7-2.0) 10/20/20 15:43 Calcium 8.7 mg/dL (8.4-10.2) 10/23/20 07:22 Ferritin 3929.0 ng/mL (30.0-300.0) H 10/22/20 08:04 Total Bilirubin 0.60 mg/dL (0.1-1.2) 10/23/20 07:22 AST 31 units/L (5-40) 10/23/20 07:22 ALT 22 units/L (7-56) 10/23/20 07:22 Alkaline Phosphatase 27 units/L (35-129) L 10/23/20 07:22 Lactate Dehydrogenase 871 units/L (91-180) H 10/22/20 08:04 C-Reactive Protein 2.20 mg/dL (0.00-1.30) H 10/22/20 08:04 Total Protein 6.4 g/dL (6.3-8.2) 10/23/20 07:22 Albumin 3.1 g/dL (3.9-5) L 10/23/20 07:22 Albumin/Globulin Ratio 0.9 % 10/23/20 07:22 Procalcitonin 1.15 ng/mL (<0.15) 10/20/20 15:43 Arterial Blood Glucose 162 mg/dL (65-95) H 10/22/20 10:04 Arterial Blood Ionized Calcium 4.6 mg/dL (4.6-5.3) 10/22/20 10:04 Coronavirus (PCR) Positive (Negative) A 10/20/20 Unknown Microbiology: Microbiology 10/20/20 15:50 Peripheral/Venous Blood Culture - Preliminary NO GROWTH AFTER 48 HOURS 10/20/20 15:43 Peripheral/Venous Blood Culture - Preliminary NO GROWTH AFTER 48 HOURS Hennessy/IV: Voiding Method Toilet Active Medications - Current Medications Current Medications: Generic Name Dose Route Start Last Admin Trade Name Freq PRN Reason Stop Dose Admin Acetaminophen 650 mg 10/20/20 17:07 Acetaminophen 325 Mg Tab PO Q4H PRN Pain MILD(1-3)/Fever >100.5/GREEN Albuterol 2.5 mg 10/20/20 17:07 Albuterol 2.5 Mg/3 Ml Nebu IH Q4H PRN Shortness Of Breath Ascorbic Acid 500 mg 10/20/20 22:00 10/22/20 21:33 Ascorbic Acid 500 Mg Tab PO 500 mg BID [place] Administration Chlordiazepoxide HCl 25 mg 10/20/20 18:00 10/22/20 09:29 Chlordiazepoxide 25 Mg Cap PO 25 mg DAILY [place] Administration Cholecalciferol 1,000 unit 10/21/20 10:00 10/22/20 09:29 Cholecalciferol (Vit D3) 1000 Unit (25 Mcg) Tab PO 1,000 unit QDAY [place] Administration Famotidine 40 mg 10/20/20 22:00 10/22/20 21:29 Famotidine 20 Mg Tab PO 40 mg QHS [place] Administration Folic Acid 1 mg 10/21/20 10:00 10/22/20 09:29 Folic Acid 1 Mg Tab PO 1 mg QDAY [place] Administration Heparin Sodium (Porcine) 5,000 unit 10/21/20 08:30 10/23/20 05:48 Heparin 5,000 Unit/1 Ml Vial SUB-Q 5,000 unit Q8HR [place] Administration Ceftriaxone Sodium 2 gm in 100 mls @ 200 mls/hr 10/21/20 16:00 10/22/20 21:02 Rocephin/Ns 2 Gm/100 Ml IV 10/24/20 23:59 Infused Q24H [place] Infusion Protocol Azithromycin 500 mg in 250 mls @ 250 mls/hr 10/21/20 17:00 10/22/20 21:02 Zithromax/Ns IV 10/24/20 17:59 Infused Q24H [place] Infusion Protocol REMDESIVIR 100 mg/ Sodium 250 mls @ 500 mls/hr 10/22/20 21:00 10/23/20 05:47 Chloride IV 10/25/20 21:29 Infused Q24HR@2100 [place] Infusion Methylprednisolone Sodium Succinate 40 mg 10/20/20 22:00 10/23/20 05:48 Methylprednisolone Sod Succinate 40 Mg/1 Ml Inj IV 40 mg Q8HR [place] Administration Morphine Sulfate 2 mg 10/20/20 21:45 10/22/20 21:32 Morphine 2 Mg/1 Ml Inj IV 2 mg Q4H PRN Administration Pain, Moderate (4-6) Ondansetron HCl 4 mg 10/20/20 17:10 10/22/20 21:31 Ondansetron 4 Mg Odt Tab PO 4 mg Q8H PRN Administration Vomiting Sodium Chloride 10 ml 10/20/20 22:00 10/23/20 05:48 Sodium Chloride 0.9% 10 Ml Flush Syringe IV 10 ml BID [place] Administration Sodium Chloride 10 ml 10/20/20 17:07 Sodium Chloride 0.9% 10 Ml Flush Syringe IV PRN PRN LINE FLUSH Sodium Chloride 50 ml 10/21/20 16:00 10/22/20 21:30 Sodium Chloride 0.9% 50 Ml Ivpb IV 10/25/20 21:01 50 ml Q24HR@2100 [place] Administration Zinc Sulfate 220 mg 10/20/20 22:00 10/22/20 21:32 Zinc Sulfate 220 Mg Cap PO 220 mg BID [place] Administration
[2020-10-23 08:40] LABS: BUN/Creatinine Ratio 17
[2020-10-23] MEDS: CHOLECALCIFEROL (VIT D3) 1000 UNIT (25 mcg) TAB PO SCH (09:38)
[2020-10-23] MEDS: ZINC SULFATE 220 MG CAP PO SCH ×2 (09:38→21:26)
[2020-10-23] MEDS: FOLIC ACID 1 MG TAB PO SCH (09:38)
[2020-10-23] MEDS: ASCORBIC ACID 500 MG TAB PO SCH ×2 (09:38→21:26)
[2020-10-23] MEDS: chlordiazePOXIDE 25 MG CAP PO SCH (09:38)
--- NOTE | 2020-10-23 10:21 | Discharge Summary ---
Providers - Providers Date of Admission: 10/20/20 17:07 Date of discharge: 10/23/20 Attending physician: FABIANA MAZARIEGOS MD 10/20/20 17:13 Consult to Physician [CONS] Routine Comment: Consulting Provider: MENDOZA MAURER Physician Instructions: Reason For Exam: PUI 10/21/20 08:20 Consult to Physician [CONS] Routine Comment: Consulting Provider: CHANTALE HART Physician Instructions: Reason For Exam: HYPOXIC RESPIRATORY FAILURE Primary care physician: SHAHRZAD MARTINEZ MD Hospitalization Condition: Stable Disposition: DC-01 TO HOME OR SELFCARE Final Discharge Diagnosis (Prints w/discharge instructions): Acute hypoxic respiratory failure. COVI-19 infection. Asthma Time spent for discharge: 32 minutes - Discharge Diagnoses (1) Acute respiratory failure with hypoxia Status: Acute (2) Alcohol dependence Status: Acute Qualifiers: Substance use status: uncomplicated Qualified Code(s): F10.20 - Alcohol dependence, uncomplicated (3) Asthma Status: Acute (4) Coronavirus infection Status: Acute (5) Pneumonia due to COVID-19 virus Status: Acute Core Measure Documentation - Palliative Care Palliative Care/ Comfort Measures: Not Applicable - Core Measures Any of the following diagnoses?: none Exam - Physical Exam Narrative exam: Not in cardiopulmonary distress. The patient appeared well nourished and normally developed. Vital signs as documented. Head exam is unremarkable. No scleral icterus . Neck is without jugular venous distension, thyromegaly, or carotid bruits. Lungs clear to auscultation bilaterally Cardiac exam reveals regular rate and Rhythm. Abdominal exam reveals normal bowel sounds, nontender, no organomegaly. Extremities are nonedematous and both femoral and pedal pulses are normal. HOG MAN: Alert and oriented 3. No focal weakness. - Constitutional Vitals: Temp Pulse Resp BP Pulse Ox 97.4 F L 45 L 18 107/69 98 10/23/20 03:59 10/23/20 03:59 10/23/20 03:59 10/23/20 03:59 10/23/20 03:59 Plan Activity: no restrictions Weight Bearing Status: Full Weight Bearing Diet: regular Additional Instructions: Follow at [facility] in 1-2 weeks Follow up with: PRIMARY CAREMD [Referring] - 3-5 Days Prescriptions: Famotidine [Pepcid] 40 mg PO QHS #30 tablet Azithromycin 500 mg PO DAILY #2 tablet cephALEXin [Keflex] 500 mg PO Q6HR #20 capsule predniSONE 10 mg PO .TAPER #21 tab Albuterol Mdi (or & Nicu Only) [ProAir HFA Inhaler] 1 puff IH Q4-6H PRN #1 inha PRN Reason: Wheezing ALBUTEROL NEB's [Proventil 0.083% NEBS] 2.5 mg IH Q4H PRN #25 neb PRN Reason: Wheezing
--- NOTE | 2020-10-23 12:02 | Progress Note ---
Assessment and Plan 30 YO Male with Asthma, Coronavirus Infection Diagnosed on October 09, 2020 presents to ED for evaluation. Patient reports "I do not feel well". Patient states that he has experienced fever, dry cough, loss of sense of smell, loss of sense of taste, multiple loose stools, body aches, shortness of breath over the past 4 days with persistently worsening symptoms over the same timeframe. Patient acknowledges use of nebulizer therapy without improvement in symptoms. Patient transported to [facility] via private vehicle for further care and evaluation of the aforementioned symptoms. The patient was seen and evaluated in the emergency department. All lab and imaging studies reviewed. Patient is lying in bed and using accessory muscles to breathe. Patient found to have a pulse oximetry of 84% on room air which is consistent with acute hypoxemic respiratory failure. Patient underwent chest x-ray which revealed bilateral pneumonia. Patient admitted to medical floor and initiated on pneumonia protocol as well as coronavirus protocol. Patient denies chills, chest pain, palpitation, skin rash, recent ill contacts, trauma, unilateral leg swelling, calf pain, individual/family history of DVT/bleeding/blood clotting disorders. Patient has no history of smoking, but admits he drinks alcohol. Denies drug abuse. 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 Patient is alert and awake. Resting on 3L O2. O2 saturation 96%. Patient still complaining of SOB on exertion and cough. ABG's done on 10/22/20 ABG pH 7.429 (7.320-7.450) POC ABG pCO2 37.4 mmHg (32.0-48.0) POC ABG pO2 66.8 mmHg (83-108) L POC ABG HCO3 24.2 ABG O2 Saturation 92.8 (0-100) Patient afebrile with no leukocytosis. Chest x-ray done on 10/20/20 reported severe bibasilar airspace pneumonia. The heart size is normal. CTA done on 10/21/[address] evidence for pulmonary embolism. Severe diffuse, patchy groundglass density changes predominantly within the lower lobes and right middle lobe are most suggestive of an atypical or viral infectious process. Patient receiving remdisivir, solumedrol, albuterol, s/c heparin, famotidine, ceftriaxone, azithromycin. - Patient Problems (1) Acute respiratory failure with hypoxia Current Visit: Yes Status: Acute Plan to address problem: O2 3 litres via nasal canula. Continue remdisivir, solumedrol Continue albuterol inhaler. Continue s/c heparin. Continue famotidine. (2) Alcohol dependence Current Visit: Yes Status: Acute Qualifiers: Substance use status: uncomplicated Qualified Code(s): F10.20 - Alcohol dep endence, uncomplicated Plan to address problem: Counseled to stop drinking alcohol. (3) Coronavirus infection Current Visit: Yes Status: Acute Plan to address problem: Patient is on remdisivir, solumedrol. Management as per ID. (4) Pneumonia due to COVID-19 virus Current Visit: Yes Status: Acute Plan to address problem: Patient is on ceftriaxone and azithromycin. (5) Asthma Current Visit: Yes Status: Acute Plan to address problem: O2 3 litres via nasal canula. Continue solumedrol Continue albuterol inhaler. Continue s/c heparin. Continue famotidine. Subjective Date of service: 10/22/20 Interval history: 30 YO Male with Asthma, Coronavirus Infection Diagnosed on October 09, 2020 presents to ED for evaluation. Patient reports "I do not feel well". Patient states that he has experienced fever, dry cough, loss of sense of smell, loss of sense of taste, multiple loose stools, body aches, shortness of breath over the past 4 days with persistently worsening symptoms over the same timeframe. Patient acknowledges use of nebulizer therapy without improvement in symptoms. Patient transported to [facility] via private vehicle for further care and evaluation of the aforementioned symptoms. The patient was seen and evaluated in the emergency department. All lab and imaging studies reviewed. Patient is lying in bed and using accessory muscles to breathe. Patient found to have a pulse oximetry of 84% on room air which is consistent with acute hypoxemic respiratory failure. Patient underwent chest x-ray which revealed bilateral pneumonia. Patient admitted to medical floor and initiated on pneumonia protocol as well as coronavirus protocol. Patient denies chills, chest pain, palpitation, skin rash, recent ill contacts, trauma, unilateral leg swelling, calf pain, individual/family history of DVT/bleeding/blood clotting disorders. Patient has no history of smoking, but admits he drinks alcohol. Denies drug abuse. 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 Patient is alert and awake. Resting on 3L O2. O2 saturation 96%. Patient still complaining of SOB on exertion and cough. ABG's done on 10/22/20 ABG pH 7.429 (7.320-7.450) POC ABG pCO2 37.4 mmHg (32.0-48.0) POC ABG pO2 66.8 mmHg (83-108) L POC ABG HCO3 24.2 ABG O2 Saturation 92.8 (0-100) Patient afebrile with no leukocytosis. Chest x-ray done on 10/20/20 reported severe bibasilar airspace pneumonia. The heart size is normal. CTA done on 10/21/[address] evidence for pulmonary embolism. Severe diffuse, patchy groundglass density changes predominantly within the lower lobes and right middle lobe are most suggestive of an atypical or viral infectious process. Patient receiving remdisivir, solumedrol, albuterol, s/c heparin, famotidine, ceftriaxone, azithromycin. Objective Vital Signs - 12hr 10/22/20 10/22/20 10/22/20 09:44 10:30 10:40 Temperature 98.3 F Pulse Rate 57 L Respiratory 24 Rate Blood Pressure 106/65 O2 Sat by Pulse 96 90 97 Oximetry 10/22/20 10/22/20 11:00 16:14 Temperature 98.5 F Pulse Rate 61 Respiratory 20 24 Rate Blood Pressure 119/77 O2 Sat by Pulse 97 Oximetry Constitutional: no acute distress, alert Eyes: non-icteric ENT: oropharynx moist Neck: supple Effort: normal Ascultation: Bilateral: rhonchi Cardiovascular: regular rate and rhythm Gastrointestinal: normoactive bowel sounds, non-distended Integumentary: normal Extremities: no cyanosis Neurologic: normal mental status, non-focal exam, pupils equal and round Psychiatric: mood appropriate, affect normal CBC and BMP: 10/22/20 08:04 10/23/20 07:22 ABG, PT/INR, D-dimer: ABG ABG pH 7.429 (7.320-7.450) 10/22/20 10:04 POC ABG pCO2 37.4 mmHg (32.0-48.0) 10/22/20 10:04 POC ABG pO2 66.8 mmHg (83-108) L 10/22/20 10:04 POC ABG HCO3 24.2 10/22/20 10:04 ABG O2 Saturation 92.8 (0-100) 10/22/20 10:04 PT/INR, D-dimer D-Dimer 1144.84 ng/mlDDU (0-234) H 10/20/20 15:43 Abnormal lab findings: Abnormal Labs 10/20/20 10/20/20 10/20/20 15:43 15:43 15:43 WBC RDW 12.8 L [place] % (Auto) 12.4 H Lymph # (Auto) 0.8 L D-Dimer 1144.84 H POC ABG pO2 ABG Oxyhemoglobin ABG Sodium ABG Glucose Sodium 129 L Chloride 93.3 L Creatinine Glucose 109 H Calcium 8.2 L Ferritin AST 82 H Alkaline Phosphatase Lactate Dehydrogenase 712 H C-Reactive Protein 4.80 H Albumin 3.6 L Arterial Blood Glucose Coronavirus (PCR) 10/20/20 10/20/20 10/20/20 15:43 15:43 Unknown WBC RDW [place] % (Auto) Lymph # (Auto) D-Dimer POC ABG pO2 ABG Oxyhemoglobin ABG Sodium ABG Glucose Sodium Chloride Creatinine Glucose 113 H Calcium Ferritin > 2000.0 H AST Alkaline Phosphatase Lactate Dehydrogenase 706 H C-Reactive Protein 4.70 H Albumin Arterial Blood Glucose Coronavirus (PCR) Positive A 10/21/20 10/21/20 10/22/20 10:11 10:11 08:04 WBC 4.0 L RDW 13.0 L 13.0 L [place] % (Auto) 14.1 H Lymph # (Auto) 0.8 L D-Dimer POC ABG pO2 ABG Oxyhemoglobin ABG Sodium ABG Glucose Sodium 134 L Chloride Creatinine 0.6 L Glucose 124 H Calcium 8.2 L Ferritin AST Alkaline Phosphatase Lactate Dehydrogenase C-Reactive Protein Albumin Arterial Blood Glucose Coronavirus (PCR) 10/22/20 10/22/20 10/22/20 08:04 08:04 10:04 WBC RDW [place] % (Auto) Lymph # (Auto) D-Dimer POC ABG pO2 66.8 L ABG Oxyhemoglobin 91.5 L ABG Sodium 134.5 L ABG Glucose 162 H Sodium Chloride Creatinine 0.7 L Glucose 108 H Calcium Ferritin 3929.0 H AST 54 H Alkaline Phosphatase 33 L Lactate Dehydrogenase 871 H C-Reactive Protein 2.20 H Albumin 3.5 L Arterial Blood Glucose 162 H Coronavirus (PCR)
--- NOTE | 2020-10-23 14:57 | Progress Note ---
Assessment and Plan Cultures: Blood culture 10/20/2020 no growth Urine culture Sputum culture Wound culture A/P: 30 yo M PMHx asthma admitted with COVID pneumonia. #Severe COVID-19 pneumonia: Patient presented with a week of symptoms, chest x- ray with diffuse bilateral infiltrates. Inflammatory markers elevated. No PE on chest CT. Diagnosed 10/09/2020. #Acute hypoxemic respiratory failure: Likely secondary to COVID-19 infection. Currently on 3L NC #Asthma Recs: -On high-dose steroids given background of asthma. -Remdesivir 200 mg IV q day x 1 followed by 100 mg IV q day x 4 days. may be of minimal benefit given time since diagnosis, however has new onset typical symptoms. -Obtain q48-72h inflammatory markers - ferritin, Ddimer, CRP, LDH -Continue ceftriaxone 2 gm IV qday and azithromycin 500 mg PO qday for 5 days given elevated procalcitonin. Can complete course with Omnicef 300 mg every 12 hours -Anticoagulation per hospital protocol -Proning as able Thank you for the consult, we will continue to follow. Monika for discharge from ID perspective. Ilda Kaplan MD [facility] ([facility] O: [phone] F: [phone] Subjective Date of service: 10/23/20 Interval history: Afebrile, on 3 L nasal cannula. Objective - Exam Narrative Exam: Physical exam deferred to reduce risk of transmission of COVID-19. Please refer to primary team's note. - Constitutional Vitals: Vital Signs Temp Pulse Resp BP Pulse Ox 98.1 F 69 19 109/67 88 10/23/20 12:48 10/23/20 12:48 10/23/20 12:48 10/23/20 12:48 10/23/20 13:17 Temperature -Last 24 Hours Temperature 98.1 F Temperature 97.4 F Temperature 98.4 F Temperature 98.5 F - Labs CBC & Chem 7: 10/22/20 08:04 10/23/20 07:22 Labs: Abnormal lab results 10/23/20 Range/Units 07:22 Carbon Dioxide 31 H (22-30) mmol/L Creatinine 0.6 L (0.8-1.3) mg/dL Glucose 127 H (75-100) mg/dL Alkaline Phosphatase 27 L (35-129) units/L Albumin 3.1 L (3.9-5) g/dL
[2020-10-23] MEDS: AZITHROMYCIN/NS 500 MG/250 ML 500 MG/250 ML BAG IV SCH (16:45)
[2020-10-23] MEDS: cefTRIAXone/NS 2 GM/100 ML 2 GM/100 ML BAG IV SCH (16:45)
[2020-10-23] MEDS: REMDESIVIR 100 MG in SODIUM CHLORIDE 0.9% 250ML 250 ML IV SCH (21:25)
[2020-10-23] MEDS: FAMOTIDINE 20 MG TAB PO SCH (21:26)
[2020-10-23] MEDS: SODIUM CHLORIDE 0.9% 50 ML IVPB IV SCH (21:26)
[2020-10-23] MEDS: MORPHINE 2 MG/1 ML INJ IV PRN (21:51)
[2020-10-24] MEDS: methylPREDNISolone Sod Succinate 40 MG/1 ML INJ IV SCH ×2 (05:17→14:46)
[2020-10-24] MEDS: HEPARIN 5,000 UNIT/1 ML VIAL SUB-Q SCH ×2 (05:17→14:46)
[2020-10-24 07:53] LABS: Alanine Aminotransferase 25 units/L (7-56); Albumin 3.2 g/dL (3.9-5); Blood Urea Nitrogen 8 mg/dL (9-20); Calcium 8.3 mg/dL (8.4-10.2); Hemolysis Index 2
[2020-10-24 07:57] LABS: BUN/Creatinine Ratio 16
--- NOTE | 2020-10-24 08:07 | Progress Note ---
Assessment and Plan Assessment and plan: 30 YO Male with Asthma, Coronavirus Infection Diagnosed on October 09, 2020 presents to ED for evaluation. Patient reports "I do not feel well". Patient states that he has experienced fever, dry cough, loss of sense of smell, loss of sense of taste, multiple loose stools, body aches, shortness of breath over the past 4 days with persistently worsening symptoms over the same timeframe. Patient acknowledges use of nebulizer therapy without improvement in symptoms. Patient transported to [facility] via private vehicle for further care and evaluation of the aforementioned symptoms. The patient was seen and evaluated in the emergency department. All lab and imaging studies reviewed. Patient is lying in bed and using accessory muscles to breathe. Patient found to have a pulse oximetry of 84% on room air which is consistent with acute hypoxemic respiratory failure. Patient underwent chest x-ray which revealed bilateral pneumonia. Patient admitted to medical floor and initiated on pneumonia protocol as well as coronavirus protocol. Patient denies chills, chest pain, palpitation, skin rash, recent ill contacts, trauma, unilateral leg swelling, calf pain, individual/family history of DVT/bleeding/blood clotting disorders. No prior admission for review. All medication listed at time of admission has been reconciled. 10/21: Severe bibasilar infiltrates on chest x-ray. Elevated D-dimer we will obtain a CTA to rule out pulmonary embolism. Pulmonary consulted due to severe hypoxia. Plan of care discussed with the patient in detail hyponatremia is improving. (1) Acute respiratory failure with hypoxia Current Visit: Yes Status: Acute Plan to address problem: Supplemental oxygen, pulse oximetry, chest x-ray, nebulizer therapy, prone positioning while in bed, pulmonary toilet, incentive spirometry. (2) Pneumonia Current Visit: Yes Status: Acute Plan to address problem: Pneumonia protocol: Chest x-ray, CBC, CMP, IV antibiotic therapy, supplemental oxygen, pulse oximetry, nebulizer therapy, blood cultures. (3) Coronavirus infection Current Visit: Yes Status: Acute Plan to address problem: Coronavirus protocol: Contact precautions, isolation precautions, IV antibiotic therapy, IV steroid therapy, prophylactic anticoagulation, vitamin C therapy vitamin D therapy, daily zinc therapy, prone positioning while in bed, (4) Alcohol dependence Current Visit: Yes Status: Acute Qualifiers: Substance use status: uncomplicated Qualified Code(s): F10.20 - Alcohol dependence, uncomplicated Plan to address problem: CIWA protocol, thiamine, folic acid, multivitamin, banana bag, (5) Hyponatremia (6) DVT prophylaxis Current Visit: Yes Status: Acute Plan to address problem: SCD to bilateral lower extremities while in bed, prophylactic anticoagulation 10/22/2020; patient is on 3 L of oxygen, patient was seen by ID and recommend to continue ceftriaxone and remdesivir for 5 days because of elevated D-dimer. Patient is on high dose of steroids because of asthma. Continue with remdesivir. 10/23/2020; patient was off oxygen. Patient can be discharged home after 6- minute walk she does not need oxygen. 10/24/2020; patient's oxygen saturation dropped to 88% after 6-minute walk, we going to do 6-minute walk again and possible discharge today. History Interval history: Patient was seen and evaluated this morning, patient was on room air Yesterday his O2 saturation dropped to 88% after 6-minute walk Hospitalist Physical - Physical exam Narrative exam: Not in cardiopulmonary distress. The patient appeared well nourished and normally developed. Vital signs as documented. Head exam is unremarkable. No scleral icterus . Neck is without jugular venous distension, thyromegaly, or carotid bruits. Lungs are clear to auscultation. Cardiac exam reveals regular rate and Rhythm. Abdominal exam reveals normal bowel sounds, nontender, no organomegaly. Extremities are nonedematous and both femoral and pedal pulses are normal. 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 No focal weakness. - Constitutional Vitals: Temp Pulse Resp BP Pulse Ox 98.1 F 63 18 98/55 97 10/24/20 05:05 10/24/20 05:05 10/24/20 05:05 10/24/20 05:05 10/24/20 05:05 General appearance: Present: mild distress Results - Labs CBC & Chem 7: 10/22/20 08:04 10/24/20 06:36 Labs: Laboratory Last Values WBC 9.9 K/mm3 (4.5-11.0) 10/22/20 08:04 RBC 4.51 M/mm3 (3.65-5.03) 10/22/20 08:04 Hgb 13.7 gm/dl (11.8-15.2) 10/22/20 08:04 Hct 40.1 % (35.5-45.6) 10/22/20 08:04 MCV 89 fl (84-94) 10/22/20 08:04 MCH 30 pg (28-32) 10/22/20 08:04 MCHC 34 % (32-34) 10/22/20 08:04 RDW 13.0 % (13.2-15.2) L 10/22/20 08:04 Plt Count 438 K/mm3 (140-440) 10/22/20 08:04 Lymph % (Auto) 19.7 % (13.4-35.0) 10/21/20 10:11 [place] % (Auto) 14.1 % (0.0-7.3) H 10/21/20 10:11 Eos % (Auto) 0.0 % (0.0-4.3) 10/21/20 10:11 Baso % (Auto) 0.4 % (0.0-1.8) 10/21/20 10:11 Lymph # (Auto) 0.8 K/mm3 (1.2-5.4) L 10/21/20 10:11 [place] # (Auto) 0.6 K/mm3 (0.0-0.8) 10/21/20 10:11 Eos # (Auto) 0.0 K/mm3 (0.0-0.4) 10/21/20 10:11 Baso # (Auto) 0.0 K/mm3 (0.0-0.1) 10/21/20 10:11 Seg Neutrophils % 65.8 % (40.0-70.0) 10/21/20 10:11 Seg Neutrophils # 2.6 K/mm3 (1.8-7.7) 10/21/20 10:11 D-Dimer 1144.84 ng/mlDDU (0-234) H 10/20/20 15:43 ABG pH 7.429 (7.320-7.450) 10/22/20 10:04 POC ABG pCO2 37.4 mmHg (32.0-48.0) 10/22/20 10:04 POC ABG pO2 66.8 mmHg (83-108) L 10/22/20 10:04 POC ABG HCO3 24.2 10/22/20 10:04 ABG O2 Saturation 92.8 (0-100) 10/22/20 10:04 POC ABG Base Excess 0.1 10/22/20 10:04 ABG Hemoglobin 12.4 (12.0-17.5) 10/22/20 10:04 ABG Oxyhemoglobin 91.5 (94-98) L 10/22/20 10:04 ABG Methemoglobin 0.3 (0.0-1.5) 10/22/20 10:04 ABG Sodium 134.5 mmol/L (136.0-145.0) L 10/22/20 10:04 ABG Potassium 4.2 mmol/L (3.40-4.50) 10/22/20 10:04 ABG Chloride 102.0 mmol/L (98-107) 10/22/20 10:04 ABG Glucose 162 mg/dL (65-95) H 10/22/20 10:04 Carboxyhemoglobin 1.1 (0.5-1.5) 10/22/20 10:04 FiO2 % 21.0 10/22/20 10:04 Sodium 137 mmol/L (137-145) 10/24/20 06:36 Potassium 4.4 mmol/L (3.6-5.0) 10/24/20 06:36 Chloride 100.6 mmol/L (98-107) 10/24/20 06:36 Carbon Dioxide 32 mmol/L (22-30) H 10/24/20 06:36 Anion Gap 9 mmol/L 10/24/20 06:36 BUN 8 mg/dL (9-20) L 10/24/20 06:36 Creatinine 0.5 mg/dL (0.8-1.3) L 10/24/20 06:36 Estimated GFR > 60 ml/min 10/24/20 06:36 BUN/Creatinine Ratio 16 % 10/24/20 06:36 Glucose 112 mg/dL (75-100) H 10/24/20 06:36 Lactic Acid 1.20 mmol/L (0.7-2.0) 10/20/20 15:43 Calcium 8.3 mg/dL (8.4-10.2) L 10/24/20 06:36 Ferritin 1391.0 ng/mL (30.0-300.0) H 10/24/20 06:36 Total Bilirubin 0.50 mg/dL (0.1-1.2) 10/24/20 06:36 AST 31 units/L (5-40) 10/24/20 06:36 ALT 25 units/L (7-56) 10/24/20 06:36 Alkaline Phosphatase 28 units/L (35-129) L 10/24/20 06:36 Lactate Dehydrogenase 512 units/L (91-180) H 10/24/20 06:36 C-Reactive Protein 0.70 mg/dL (0.00-1.30) 10/24/20 06:36 Total Protein 6.3 g/dL (6.3-8.2) 10/24/20 06:36 Albumin 3.2 g/dL (3.9-5) L 10/24/20 06:36 Albumin/Globulin Ratio 1.0 % 10/24/20 06:36 Procalcitonin 1.15 ng/mL (<0.15) 10/20/20 15:43 Arterial Blood Glucose 162 mg/dL (65-95) H 10/22/20 10:04 Arterial Blood Ionized Calcium 4.6 mg/dL (4.6-5.3) 10/22/20 10:04 Coronavirus (PCR) Positive (Negative) A 10/20/20 Unknown Microbiology: Microbiology 10/20/20 15:50 Peripheral/Venous Blood Culture - Preliminary NO GROWTH AFTER 72 HOURS 10/20/20 15:43 Peripheral/Venous Blood Culture - Preliminary NO GROWTH AFTER 72 HOURS [place]/IV: Voiding Method Urinal Active Medications - Current Medications Current Medications: Generic Name Dose Route Start Last Admin Trade Name Freq PRN Reason Stop Dose Admin Acetaminophen 650 mg 10/20/20 17:07 Acetaminophen 325 Mg Tab PO Q4H PRN Pain MILD(1-3)/Fever >100.5/GREEN Albuterol 2.5 mg 10/20/20 17:07 Albuterol 2.5 Mg/3 Ml Nebu IH Q4H PRN Shortness Of Breath Ascorbic Acid 500 mg 10/20/20 22:00 10/23/20 21:26 Ascorbic Acid 500 Mg Tab PO 500 mg BID [place] Administration Chlordiazepoxide HCl 25 mg 10/20/20 18:00 10/23/20 09:38 Chlordiazepoxide 25 Mg Cap PO 25 mg DAILY [place] Administration Cholecalciferol 1,000 unit 10/21/20 10:00 10/23/20 09:38 Cholecalciferol (Vit D3) 1000 Unit (25 Mcg) Tab PO 1,000 unit QDAY [place] Administration Famotidine 40 mg 10/20/20 22:00 10/23/20 21:26 Famotidine 20 Mg Tab PO 40 mg QHS [place] Administration Folic Acid 1 mg 10/21/20 10:00 10/23/20 09:38 Folic Acid 1 Mg Tab PO 1 mg QDAY [place] Administration Heparin Sodium (Porcine) 5,000 unit 10/21/20 08:30 10/24/20 05:17 Heparin 5,000 Unit/1 Ml Vial SUB-Q 5,000 unit Q8HR [place] Administration Ceftriaxone Sodium 2 gm in 100 mls @ 200 mls/hr 10/21/20 16:00 10/23/20 16:45 Rocephin/Ns 2 Gm/100 Ml IV 10/24/20 23:59 200 mls/hr Q24H [place] Administration Protocol Azithromycin 500 mg in 250 mls @ 250 mls/hr 10/21/20 17:00 10/23/20 16:45 Zithromax/Ns IV 10/24/20 17:59 250 mls/hr Q24H [place] Administration Protocol REMDESIVIR 100 mg/ Sodium 250 mls @ 500 mls/hr 10/22/20 21:00 10/23/20 21:25 Chloride IV 10/25/20 21:29 500 mls/hr Q24HR@2100 [place] Administration Methylprednisolone Sodium Succinate 40 mg 10/20/20 22:00 10/24/20 05:17 Methylprednisolone Sod Succinate 40 Mg/1 Ml Inj IV 40 mg Q8HR [place] Administration Morphine Sulfate 2 mg 10/20/20 21:45 10/23/20 21:51 Morphine 2 Mg/1 Ml Inj IV 2 mg Q4H PRN Administration Pain, Moderate (4-6) Ondansetron HCl 4 mg 10/20/20 17:10 10/22/20 21:31 Ondansetron 4 Mg Odt Tab PO 4 mg Q8H PRN Administration Vomiting Sodium Chloride 10 ml 10/20/20 22:00 10/23/20 21:26 Sodium Chloride 0.9% 10 Ml Flush Syringe IV 10 ml BID [place] Administration Sodium Chloride 10 ml 10/20/20 17:07 Sodium Chloride 0.9% 10 Ml Flush Syringe IV PRN PRN LINE FLUSH Sodium Chloride 50 ml 10/21/20 16:00 10/23/20 21:26 Sodium Chloride 0.9% 50 Ml Ivpb IV 10/25/20 21:01 50 ml Q24HR@2100 [place] Administration Zinc Sulfate 220 mg 10/20/20 22:00 10/23/20 21:26 Zinc Sulfate 220 Mg Cap PO 220 mg BID [place] Administration
[2020-10-24] MEDS: FOLIC ACID 1 MG TAB PO SCH (09:26)
[2020-10-24] MEDS: ZINC SULFATE 220 MG CAP PO SCH (09:26)
[2020-10-24] MEDS: chlordiazePOXIDE 25 MG CAP PO SCH (09:26)
[2020-10-24] MEDS: ASCORBIC ACID 500 MG TAB PO SCH (09:26)
[2020-10-24] MEDS: CHOLECALCIFEROL (VIT D3) 1000 UNIT (25 mcg) TAB PO SCH (09:26)
--- NOTE | 2020-10-24 09:41 | Progress Note ---
Assessment and Plan 30 YO Male with Asthma, Coronavirus Infection Diagnosed on October 09, 2020 presents to ED for evaluation. Patient reports "I do not feel well". Patient states that he has experienced fever, dry cough, loss of sense of smell, loss of sense of taste, multiple loose stools, body aches, shortness of breath over the past 4 days with persistently worsening symptoms over the same timeframe. Patient acknowledges use of nebulizer therapy without improvement in symptoms. Patient transported to [facility] via private vehicle for further care and evaluation of the aforementioned symptoms. The patient was seen and evaluated in the emergency department. All lab and imaging studies reviewed. Patient is lying in bed and using accessory muscles to breathe. Patient found to have a pulse oximetry of 84% on room air which is consistent with acute hypoxemic respiratory failure. Patient underwent chest x-ray which revealed bilateral pneumonia. Patient admitted to medical floor and initiated on pneumonia protocol as well as coronavirus protocol. Patient denies chills, chest pain, palpitation, skin rash, recent ill contacts, trauma, unilateral leg swelling, calf pain, individual/family history of DVT/bleeding/blood clotting disorders. Patient has no history of smoking, but admits he drinks alcohol. Denies drug abuse. 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 Patient is alert and awake. Resting on 3L O2. O2 saturation 98%. Patient still complaining of SOB on exertion ABG's done on 10/22/20 ABG pH 7.429 (7.320-7.450) POC ABG pCO2 37.4 mmHg (32.0-48.0) POC ABG pO2 66.8 mmHg (83-108) L POC ABG HCO3 24.2 ABG O2 Saturation 92.8 (0-100) Patient afebrile with no leukocytosis. Chest x-ray done on 10/20/20 reported severe bibasilar airspace pneumonia. The heart size is normal. CTA done on 10/21/[address] evidence for pulmonary embolism. Severe diffuse, patchy groundglass density changes predominantly within the lower lobes and right middle lobe are most suggestive of an atypical or viral infectious process. Patient receiving remdisivir, solumedrol, albuterol, s/c heparin, famotidine, ceftriaxone, azithromycin. - Patient Problems (1) Acute respiratory failure with hypoxia Current Visit: Yes Status: Acute Plan to address problem: O2 3 litres via nasal canula. Continue remdisivir, solumedrol Continue albuterol inhaler. Continue s/c heparin. Continue famotidine. (2) Alcohol dependence Current Visit: Yes Status: Acute Qualifiers: Substance use status: uncomplicated Qualified Code(s): F10.20 - Alcohol dependence, uncomplicated Plan to address problem: Counseled to stop drinking alcohol. (3) Coronavirus infection Current Visit: Yes Status: Acute Plan to address problem: Patient is on remdisivir, solumedrol. Management as per ID. (4) Pneumonia due to COVID-19 virus Current Visit: Yes Status: Acute Plan to address problem: Patient is on ceftriaxone and azithromycin. (5) Asthma Current Visit: Yes Status: Acute Plan to address problem: O2 3 litres via nasal canula. Continue solumedrol Continue albuterol inhaler. Continue s/c heparin. Continue famotidine. Subjective Date of service: 10/23/20 Interval history: 30 YO Male with Asthma, Coronavirus Infection Diagnosed on October 09, 2020 presents to ED for evaluation. Patient reports "I do not feel well". Patient states that he has experienced fever, dry cough, loss of sense of smell, loss of sense of taste, multiple loose stools, body aches, shortness of breath over the past 4 days with persistently worsening symptoms over the same timeframe. Patient acknowledges use of nebulizer therapy without improvement in symptoms. Patient transported to [facility] via private vehicle for further care and evaluation of the aforementioned symptoms. The patient was seen and evaluated in the emergency department. All lab and imaging studies reviewed. Patient is lying in bed and using accessory muscles to breathe. Patient found to have a pulse oximetry of 84% on room air which is consistent with acute hypoxemic respiratory failure. Patient underwent chest x-ray which revealed bilateral pneumonia. Patient admitted to medical floor and initiated on pneumonia protocol as well as coronavirus protocol. Patient denies chills, chest pain, palpitation, skin rash, recent ill contacts, trauma, unilateral leg swelling, calf pain, individual/family history of DVT/bleeding/blood clotting disorders. Patient has no history of smoking, but admits he drinks alcohol. Denies drug abuse. 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 Patient is alert and awake. Resting on 3L O2. O2 saturation 98%. Patient still complaining of SOB on exertion ABG's done on 10/22/20 ABG pH 7.429 (7.320-7.450) POC ABG pCO2 37.4 mmHg (32.0-48.0) POC ABG pO2 66.8 mmHg (83-108) L POC ABG HCO3 24.2 ABG O2 Saturation 92.8 (0-100) Patient afebrile with no leukocytosis. Chest x-ray done on 10/20/20 reported severe bibasilar airspace pneumonia. The heart size is normal. CTA done on 10/21/[address] evidence for pulmonary embolism. Severe diffuse, patchy groundglass density changes predominantly within the lower lobes and right middle lobe are most suggestive of an atypical or viral infectious process. Patient receiving remdisivir, solumedrol, albuterol, s/c heparin, famotidine, ceftriaxone, azithromycin. Objective Vital Signs - 12hr 10/23/20 10/23/20 10/23/20 03:31 03:59 11:00 Temperature 97.4 F L Pulse Rate 45 L Respiratory 18 18 Rate Blood Pressure 107/69 [Left] O2 Sat by Pulse 44 L 98 Oximetry Constitutional: no acute distress, alert Eyes: non-icteric ENT: oropharynx moist Neck: supple Effort: normal Ascultation: Bilateral: rhonchi Cardiovascular: regular rate and rhythm Gastrointestinal: normoactive bowel sounds, non-distended Integumentary: normal Extremities: no cyanosis Neurologic: normal mental status, non-focal exam, pupils equal and round Psychiatric: mood appropriate, affect normal CBC and BMP: 10/22/20 08:04 10/24/20 06:36 ABG, PT/INR, D-dimer: ABG ABG pH 7.429 (7.320-7.450) 10/22/20 10:04 POC ABG pCO2 37.4 mmHg (32.0-48.0) 10/22/20 10:04 POC ABG pO2 66.8 mmHg (83-108) L 10/22/20 10:04 POC ABG HCO3 24.2 10/22/20 10:04 ABG O2 Saturation 92.8 (0-100) 10/22/20 10:04 PT/INR, D-dimer D-Dimer 1144.84 ng/mlDDU (0-234) H 10/20/20 15:43 Abnormal lab findings: Abnormal Labs 10/20/20 10/20/20 10/20/20 15:43 15:43 15:43 WBC RDW 12.8 L [place] % (Auto) 12.4 H Lymph # (Auto) 0.8 L D-Dimer 1144.84 H POC ABG pO2 ABG Oxyhemoglobin ABG Sodium ABG Glucose Sodium 129 L Chloride 93.3 L Carbon Dioxide Creatinine Glucose 109 H Calcium 8.2 L Ferritin AST 82 H Alkaline Phosphatase Lactate Dehydrogenase 712 H C-Reactive Protein 4.80 H Albumin 3.6 L Arterial Blood Glucose Coronavirus (PCR) 10/20/20 10/20/20 10/20/20 15:43 15:43 Unknown WBC RDW [place] % (Auto) Lymph # (Auto) D-Dimer POC ABG pO2 ABG Oxyhemoglobin ABG Sodium ABG Glucose Sodium Chloride Carbon Dioxide Creatinine Glucose 113 H Calcium Ferritin > 2000.0 H AST Alkaline Phosphatase Lactate Dehydrogenase 706 H C-Reactive Protein 4.70 H Albumin Arterial Blood Glucose Coronavirus (PCR) Positive A 10/21/20 10/21/20 10/22/20 10:11 10:11 08:04 WBC 4.0 L RDW 13.0 L 13.0 L [place] % (Auto) 14.1 H Lymph # (Auto) 0.8 L D-Dimer POC ABG pO2 ABG Oxyhemoglobin ABG Sodium ABG Glucose Sodium 134 L Chloride Carbon Dioxide Creatinine 0.6 L Glucose 124 H Calcium 8.2 L Ferritin AST Alkaline Phosphatase Lactate Dehydrogenase C-Reactive Protein Albumin Arterial Blood Glucose Coronavirus (PCR) 10/22/20 10/22/20 10/22/20 08:04 08:04 10:04 WBC RDW [place] % (Auto) Lymph # (Auto) D-Dimer POC ABG pO2 66.8 L ABG Oxyhemoglobin 91.5 L ABG Sodium 134.5 L ABG Glucose 162 H Sodium Chloride Carbon Dioxide Creatinine 0.7 L Glucose 108 H Calcium Ferritin 3929.0 H AST 54 H Alkaline Phosphatase 33 L Lactate Dehydrogenase 871 H C-Reactive Protein 2.20 H Albumin 3.5 L Arterial Blood Glucose 162 H Coronavirus (PCR) 10/23/20 07:22 WBC RDW [place] % (Auto) Lymph # (Auto) D-Dimer POC ABG pO2 ABG Oxyhemoglobin ABG Sodium ABG Glucose Sodium Chloride Carbon Dioxide 31 H Creatinine 0.6 L Glucose 127 H Calcium Ferritin AST Alkaline Phosphatase 27 L Lactate Dehydrogenase C-Reactive Protein Albumin 3.1 L Arterial Blood Glucose Coronavirus (PCR)
--- NOTE | 2020-10-24 11:22 | Discharge Summary ---
Providers - Providers Date of Admission: 10/20/20 17:07 Date of discharge: 10/24/20 Attending physician: FABIANA MAZARIEGOS MD 10/20/20 17:13 Consult to Physician [CONS] Routine Comment: Consulting Provider: MENDOZA MAURER Physician Instructions: Reason For Exam: PUI 10/21/20 08:20 Consult to Physician [CONS] Routine Comment: Consulting Provider: CHANTALE HART Physician Instructions: Reason For Exam: HYPOXIC RESPIRATORY FAILURE Primary care physician: SHAHRZAD MARTINEZ MD Hospitalization Reason for admission: Acute hypoxic respiratory failure, COVID-19 infection, astma exacerbation Condition: Stable Hospital course: 30 YO Male with Asthma, Coronavirus Infection Diagnosed on October 09, 2020 presents to ED for evaluation. Patient reports "I do not feel well". Patient states that he has experienced fever, dry cough, loss of sense of smell, loss of sense of taste, multiple loose stools, body aches, shortness of breath over the past 4 days with persistently worsening symptoms over the same timeframe. Patient acknowledges use of nebulizer therapy without improvement in symptoms. Patient transported to [facility] via private vehicle for further care and evaluation of the aforementioned symptoms. The patient was seen and evaluated in the emergency department. All lab and imaging studies reviewed. Patient is lying in bed and using accessory muscles to breathe. Patient found to have a pulse oximetry of 84% on room air which is consistent with acute hypoxemic respiratory failure. Patient underwent chest x-ray which revealed bilateral pneumonia. Patient admitted to medical floor and initiated on pneumonia protocol as well as coronavirus protocol. Patient denies chills, chest pain, palpitation, skin rash, recent ill contacts, trauma, unilateral leg swelling, calf pain, individual/family history of DVT/bleeding/blood clotting disorders. No prior admission for review. All medication listed at time of admission has been reconciled. 10/21: Severe bibasilar infiltrates on chest x-ray. Elevated D-dimer we will obtain a CTA to rule out pulmonary embolism. Pulmonary consulted due to severe hypoxia. Plan of care discussed with the patient in detail hyponatremia is improving. (1) Acute respiratory failure with hypoxia Current Visit: Yes Status: Acute Plan to address problem: Supplemental oxygen, pulse oximetry, chest x-ray, nebulizer therapy, prone positioning while in bed, pulmonary toilet, incentive spirometry. (2) Pneumonia Current Visit: Yes Status: Acute Plan to address problem: Pneumonia protocol: Chest x-ray, CBC, CMP, IV antibiotic therapy, supplemental oxygen, pulse oximetry, nebulizer therapy, blood cultures. (3) Coronavirus infection Current Visit: Yes Status: Acute Plan to address problem: Coronavirus protocol: Contact precautions, isolation precautions, IV antibiotic therapy, IV steroid therapy, prophylactic anticoagulation, vitamin C therapy vitamin D therapy, daily zinc therapy, prone positioning while in bed, (4) Alcohol dependence Current Visit: Yes Status: Acute Qualifiers: Substance use status: uncomplicated Qualified Code(s): F10.20 - Alcohol dependence, uncomplicated Plan to address problem: CIWA protocol, thiamine, folic acid, multivitamin, banana bag, (5) Hyponatremia (6) DVT prophylaxis Current Visit: Yes Status: Acute Plan to address problem: SCD to bilateral lower extremities while in bed, prophylactic anticoagulation 10/22/2020; patient is on 3 L of oxygen, patient was seen by ID and recommend to continue ceftriaxone and remdesivir for 5 days because of elevated D-dimer. Patient is on high dose of steroids because of asthma. Continue with remdesivir. 10/23/2020; patient was off oxygen. Patient can be discharged home after 6- minute walk she does not need oxygen. 10/24/2020; patient's oxygen saturation dropped to 88% after 6-minute walk, we going to do 6-minute walk again and possible discharge today. Patient was evaluated home oxygen and he does not qualify. Patient discharged home in a stable condition. His medications were sent to his pharmacy. Disposition: DC- TO HOME OR SELFCARE Final Discharge Diagnosis (Prints w/discharge instructions): Acute hypoxic respiratory failure. COVID-19 pneumonia. Acute asthma exacerbation Time spent for discharge: 32 minutes - Discharge Diagnoses (1) Acute respiratory failure with hypoxia Status: Acute (2) Alcohol dependence Status: Acute Qualifiers: Substance use status: uncomplicated Qualified Code(s): F10.20 - Alcohol dependence, uncomplicated (3) Asthma Status: Acute (4) Pneumonia due to COVID-19 virus Status: Acute Core Measure Documentation - Palliative Care Palliative Care/ Comfort Measures: Not Applicable - Core Measures Any of the following diagnoses?: none Exam - Physical Exam Narrative exam: Not in cardiopulmonary distress. The patient appeared well nourished and normally developed. Vital signs as documented. Head exam is unremarkable. No scleral icterus . Neck is without jugular venous distension, thyromegaly, or carotid bruits. Lungs are clear to auscultation. Cardiac exam reveals regular rate and Rhythm. Abdominal exam reveals normal bowel sounds, nontender, no organomegaly. Extremities are nonedematous and both femoral and pedal pulses are normal. [employer]: Alert and oriented 3. No focal weakness. - Constitutional Vitals: Temp Pulse Resp BP Pulse Ox 98.1 F 63 18 98/55 97 10/24/20 05:05 10/24/20 05:05 10/24/20 05:05 10/24/20 05:05 10/24/20 05:05 Plan Activity: no restrictions Weight Bearing Status: Full Weight Bearing Diet: regular Follow up with: PRIMARY CARE, [Referring] - 3-5 Days Prescriptions: Famotidine [Pepcid] 40 mg PO QHS #30 tablet Azithromycin 500 mg PO DAILY #2 tablet cephALEXin [Keflex] 500 mg PO Q6HR #20 capsule predniSONE 10 mg PO .TAPER #21 tab Albuterol Mdi (or & Nicu Only) [ProAir HFA Inhaler] 1 puff IH Q4-6H PRN #1 inha PRN Reason: Wheezing ALBUTEROL NEB's [Proventil 0.083% NEBS] 2.5 mg IH Q4H PRN #25 neb PRN Reason: Wheezing
--- NOTE | 2020-10-24 14:40 | Progress Note ---
Assessment and Plan Cultures: Blood culture 10/20/2020 no growth Urine culture Sputum culture Wound culture A/P: 30 yo M PMHx asthma admitted with COVID pneumonia. #Severe COVID-19 pneumonia: Patient presented with a week of symptoms, chest x- ray with diffuse bilateral infiltrates. Inflammatory markers elevated. No PE on chest CT. Diagnosed 10/09/2020. #Acute hypoxemic respiratory failure: Likely secondary to COVID-19 infection. Currently on 3L NC #Asthma Recs: -On high-dose steroids given background of asthma. -Remdesivir 200 mg IV q day x 1 followed by 100 mg IV q day x 4 days. may be of minimal benefit given time since diagnosis, however has new onset typical symptoms. -Obtain q48-72h inflammatory markers - ferritin, Ddimer, CRP, LDH -Continue ceftriaxone 2 gm IV qday and azithromycin 500 mg PO qday for 5 days given elevated procalcitonin. Can complete course with Omnicef 300 mg every 12 hours -Anticoagulation per hospital protocol -Proning as able Thank you for the consult, we will continue to follow. Monika for discharge from ID perspective. Ilda Kaplan MD [facility], [facility] ([facility] O: [phone] F: [phone] Subjective Date of service: 10/24/20 Principal diagnosis: Acute hypoxemic respiratory failure; Pneumonia; COVID-19 infection Interval history: Afebrile, normal white count. On room air. Objective - Exam Narrative Exam: Physical exam deferred to reduce risk of transmission of COVID-19. Please refer to primary team's note. - Constitutional Vitals: Vital Signs Temp Pulse Resp BP Pulse Ox 98.1 F 63 18 98/55 97 10/24/20 05:05 10/24/20 05:05 10/24/20 05:05 10/24/20 05:05 10/24/20 05:05 Temperature -Last 24 Hours Temperature 98.1 F Temperature 98.0 F - Labs CBC & Chem 7: 10/22/20 08:04 10/24/20 06:36 Labs: Abnormal lab results 10/24/20 10/24/20 Range/Units 06:36 06:36 Carbon Dioxide 32 H (22-30) mmol/L BUN 8 L (9-20) mg/dL Creatinine 0.5 L (0.8-1.3) mg/dL Glucose 112 H (75-100) mg/dL Calcium 8.3 L (8.4-10.2) mg/dL Ferritin 1391.0 H (30.0-300.0) ng/mL Alkaline Phosphatase 28 L (35-129) units/L Lactate Dehydrogenase 512 H (91-180) units/L Albumin 3.2 L (3.9-5) g/dL
[2020-10-24 15:35] VITALS: BP 109/70
== END 2020-10-24 15:20 | disposition home or self-care (01) | DRG 177 ==
LOC: ED 14:51 → 3A 17:07
PROVIDERS: ADMIT Internal Medicine; ATTEND Internal Medicine
PROC: XW033E5 Introduction of Remdesivir Anti-infective into Peripheral Vein, Percutaneous Approach, New Technology Group 5 (ICD-10-PCS; principal; 2020-10-21)
PROC: 4A033R1 Measurement of Arterial Saturation, Peripheral, Percutaneous Approach (ICD-10-PCS; 2020-10-22)
DX: U07.1 COVID-19 (principal); J96.01 Acute respiratory failure with hypoxia; J12.82 Pneumonia due to coronavirus disease 2019; E87.1 Hypo-osmolality and hyponatremia; J45.901 Unspecified asthma with (acute) exacerbation; F10.20 Alcohol dependence, uncomplicated; Z91.018 Allergy to other foods; J42 Unspecified chronic bronchitis; Z87.891 Personal history of nicotine dependence; Z82.49 Family history of ischemic heart disease and other diseases of the circulatory system
CPT/HCPCS: 36415; 36600; 71045; 71275; 80048; 80053; 82140; 82728; 82805; 82947; 83615; 84145; 85025; 85027; 85379; 86140; 87040; 93005; 96365; 96375; G0378; J0456; J0696; J1644; J1885; J2270; J2920; J3411; J7030; J7040; J8540; Q0162; Q9967; U0003